=== PATIENT | female | born 1960 | race Caucasian/White ===

== ENCOUNTER 2017-03-13 14:39 | Emergency (ER) | payer OTHER ==
[2017-03-13 14:54] VITALS: BP 111/67
[2017-03-13] MEDS ORDERED: NS 0.9% 1000 ML* 1,000 ML IV ONE (15:22)
--- NOTE | 2017-03-13 15:31 | ED ---
Elis Brice Nilda, scribed for Dixie Fernandes MD on 03/13/17 at 1524 . Adult Trauma - HPI Summary HPI Summary: This patient is a 56 year old F [place] [facility] [place] chief complaint of dizziness falling out of bed twice last night. Pt does not know why she fell. Per triage note, family had difficulty waking patient today. Pt with early onset dementia - but reports memory worse today. The patient reports headache different from her migraines, dizziness, confusion, black floaters intermittently in in vision field, and vomiting (2x after waking up). She states she was ambulatory after her fall bt felt weak and unsteady. Patient denies blood HEENT. Pt denies CP, SOB, arm and leg trauma, neck pain, and bleeding from orifices (eyes, nose, ears, and mouth). Symptoms alleviated by nothing. Pt with little po today. Pt is not anticoagulated PMHx includes early Alzheimer's. No PMHx of IN, CVA, cancer, and kidney and liver issues. Medications reviewed this visit. - History of Current Complaint Chief Complaint: UCDizziness Stated Complaint: MEMORY LOSS/ HIT HEAD/VOMITING Time Seen by Provider: 03/13/17 15:11 Hx Obtained From: Patient, Medical Records Hx From Patient Unobtainable Due To: Dementia - early onset, mild Hx Last Menstrual Period: 2007 Patient had a water basting procedure Mechanism of Injury: Blunt Trauma, Fall Ambulatory at the Scene: Yes Loss of Consciousness: no loss of consciousness Current Severity: Moderate Location: Head Aggravating Factor(s): Nothing Alleviating Factor(s): Nothing - Allergy/Home Medications Allergies/Adverse Reactions: Allergies Allergy/AdvReac Type Severity Reaction Status Date / Time No Known Allergies Allergy Verified 03/13/17 14:53 PMH/Surg Hx/FS Hx/Imm Hx Previously Healthy: No Endocrine/Hematology History: Denies: Hx Diabetes, Hx Thyroid Disease Cardiovascular History: Reports: Hx Hypertension Denies: Hx Pacemaker/ICD Respiratory History: Reports: Hx Chronic Obstructive Pulmonary Disease (COPD), Hx Sleep Apnea, Other Respiratory Problems/Disorders - COPD Denies: Hx Asthma GI History: Denies: Hx Ulcer History: Denies: Hx Renal Disease Sensory History: Reports: Hx Contacts or Glasses - GLASSES Denies: Hx Hearing Aid Opthamlomology History: Reports: Hx Contacts or Glasses - GLASSES Neurological History: Reports: Hx Migraine - ON MEDS FOR Psychiatric History: Reports: Hx Anxiety - ON MEDS Denies: Hx Panic Disorder - Surgical History Surgery Procedure, Year, and Place: - 1981 AND 1983- [facility]. hernia repair 2015 Hx Anesthesia Reactions: No Infectious Disease History: No Infectious Disease History: Denies: Hx Clostridium Difficile, Hx Hepatitis, Hx Human Immunodeficiency Virus (HIV), Hx of Known/Suspected MRSA, Hx Shingles, Hx Tuberculosis, Hx Known/ Suspected VRE, Hx Known/Suspected VRSA, History Other Infectious Disease, Traveled Outside the [place] in Last 30 Days - Social History Occupation: Disabled Lives: With Family Alcohol Use: None Substance Use Type: Reports: None Smoking Status (MU): Former Smoker Type: Cigarettes Amount Used/How Often: 1 PACK A DAY Length of Time of Smoking/Using Tobacco: 30YEARS Review of Systems Constitutional: Negative Positive: Other - intermittent floaters in vision ENT: Negative Cardiovascular: Negative Respiratory: Negative Positive: Vomiting Genitourinary: Negative Musculoskeletal: Negative Skin: Negative Positive: Headache, Weakness Psychological: Normal All Other Systems Reviewed And Are Negative: Yes Physical Exam Triage Information Reviewed: Yes Vital Signs On Initial Exam: Initial Vitals Temp Pulse Resp BP Pulse Ox 98.2 F 98 18 111/67 96 03/13/17 14:47 03/13/17 14:47 03/13/17 14:47 03/13/17 14:47 03/13/17 14:47 Vital Signs Reviewed: Yes Appearance: Positive: No Pain Distress, Well-Nourished. Negative: Well- Appearing Skin: Positive: Warm, Skin Color Reflects Adequate Perfusion, Dry Head/Face: Positive: Normal Head/Face Inspection Eyes: Positive: Normal, EOMI, ASHLEY, Conjunctiva Clear ENT: Positive: Normal ENT inspection, Hearing grossly normal, Pharynx normal Neck: Positive: Supple, Nontender, No Lymphadenopathy Respiratory/Lung Sounds: Positive: Clear to Auscultation, Breath Sounds Present , Decreased Breath Sounds Cardiovascular: Positive: Normal, RRR. Negative: Murmur Abdomen Description: Positive: Nontender, No Organomegaly, Soft Bowel Sounds: Positive: Present Musculoskeletal: Positive: Normal, Strength/ROM Intact Neurological: Positive: Normal, Alert, Oriented to Person Place, Time, CN Intact II-III, Other - Pt unsteady gait follows commands slow to answer orientation quesitons, but correct. Negative: Focal Deficit @, Slurred Speech Psychiatric: Positive: Other - quiet, concerns no distress AVPU Assessment: Alert - Cordell Coma Scale Best Eye Response: 4 - Spontaneous Best Motor Response: 6 - Obeys Commands Best Verbal Response: 5 - Oriented Diagnostics - Vital Signs Vital Signs Temp Pulse Resp BP Pulse Ox 03/13/17 14:47 98.2 F 98 18 111/67 96 - Laboratory Lab Statement: Any lab studies that have been ordered have been reviewed, and results considered in the medical decision making process. - EKG No standard instances Cardiac Rate: NL EKG Rhythm: Sinus Rhythm ST Segment: Normal Ectopy: None EKG Interpretation: inverted T wave 3 Adult Trauma Course/Dx - Course Assessment/Plan: Pt presents with dizziness, weakness, 2 episodes of voimiting and WEINER s/p falling out of bed last night. Pt noted to have an unsteady gait - no other focal neuologic findings. FSBG 122. EKG non concerning for stemi. d/ w pt. Will transfer by EMS to ED. Pt in agreement - Diagnoses Provider Diagnoses: Confusion, Dizziness, Headache, Fall Discharge - Discharge Plan Condition: Good Disposition: TRANS HIGHER LVL OF CARE FAC Referrals: Mickey George DO [Primary Care Provider] - The documentation as recorded by the Elis bonilla Nilda accurately reflects the service I personally performed and the decisions made by me, Dixie Fernandes MD.
== END 2017-03-13 15:50 | disposition short-term general hospital (02) ==
LOC: UCEAST 14:39
DX: R41.0 Disorientation, unspecified (principal); R42 Dizziness and giddiness; R51 Headache; I10 Essential (primary) hypertension; J44.9 Chronic obstructive pulmonary disease, unspecified; F41.9 Anxiety disorder, unspecified; Z87.891 Personal history of nicotine dependence
CPT/HCPCS: 93005; 96360; 99213; G0463

== ENCOUNTER 2017-03-13 16:09 | Observation (INO) | payer OTHER ==
[2017-03-13] MEDS ORDERED: Aspirin Low Dose CHEW TAB* 81 MG PO ONE (16:59)
--- NOTE | 2017-03-13 17:45 | RAD ---
Indication: Vomiting. Head injury. Comparison: July 07, 2015 MRI. Technique: Noncontrast CT vertex of skull through foramen magnum. Report: The sulci, ventricles, and basal cisterns are normal for age. Farris matter white matter differentiation is preserved without evidence for edema. No intra or extra axial hemorrhage, mass, or fluid collection detected. Unremarkable visualized orbital contents. Unremarkable calvarium and skull base. Unremarkable scalp. The visualized paranasal sinuses and mastoid air spaces are clear. IMPRESSION: No CT evidence for traumatic brain injury or acute intracranial process. Negative exam.
[2017-03-13 17:47] LABS: Hematocrit 38 % (35-47); Hemoglobin 12.6 g/dl (12.0-16.0); Mean Corpuscular HGB Conc 33 g/dl (31-36); Mean Corpuscular Hemoglobin 34 pg (27-31); Mean Corpuscular Volume 101 fL (80-97); Mean Platelet Volume 10 um3 (7.4-10.4); Red Blood Count 3.77 10^6/ul (4.0-5.4); Red Cell Distribution Width 14 % (10.5-15); White Blood Count 10.2 10^3/ul (3.5-10.8)
[2017-03-13 18:04] LABS: Albumin 3.8 g/dL (3.2-5.2); BUN/Creatinine Ratio 27.8 (8-20); Calcium 8.8 mg/dL (8.6-10.3); EGFR African American 83.9 (>60); EGFR Non-African American 65.2 (>60); Globulin 2.4 g/dL (2-4); Potassium 4.6 mmol/L (3.5-5.0); Total Bilirubin 0.3 mg/dL (0.2-1.0); Total Protein 6.2 g/dL (6.4-8.9)
[2017-03-13 18:42] LABS: Troponin I 0.21 ng/mL (<0.04)
[2017-03-13] MEDS ORDERED: NS 0.9% 1000 ML* 1,000 ML IV ONE ×2 (18:56→19:25)
--- NOTE | 2017-03-13 19:56 | RAD ---
Indication: Generalized illness. Vomiting. Shaky. History of asthma and tobacco use. Comparison: February 19, 2011 Technique: Upright AP 1939 hours Report: Elevated lung volumes. No focal pulmonary lesion, compelling alveolar consolidation, pleural effusion, pneumothorax. The heart, pulmonary vasculature, and mediastinal contours are unremarkable. IMPRESSION: 1. No compelling evidence for pneumonia. 2. Stigmata of probable chronic obstructive pulmonary disease.
[2017-03-13 20:22] LABS: Urine Bacteria Absent (Absent); Urine Bilirubin Negative (Negative); Urine Glucose Negative (Negative); Urine Nitrite Negative (Negative)
[2017-03-13] MEDS ORDERED: Albuterol 2.5 MG/3 ML NEB.SOL* (0.083%) INH PRN (22:09)
[2017-03-13] MEDS ORDERED: Famotidine TAB* 20 MG PO PRN (22:09)
[2017-03-13] MEDS ORDERED: Cyclobenzaprine TAB* 10 MG PO PRN (22:09)
[2017-03-13] MEDS ORDERED: Iohexol 350* (CONTRAST) 500 ML MDV IV ONE (22:31)
[2017-03-13] MEDS ORDERED: Magnesium Oxide TAB* 400 MG PO SCH (23:00)
--- NOTE | 2017-03-14 03:58 | HP ---
CC: Dr. George. * HISTORY AND PHYSICAL: DATE OF ADMISSION: 03/13/17 PRIMARY CARE PROVIDER: Dr. George. CHIEF COMPLAINT: Unsteadiness with walking. HISTORY OF PRESENT ILLNESS: Ms. Lofton is a 56-year-old female with a history of former tobacco abuse, peripheral neuropathy, COPD, anxiety, and mild cognitive impairment, who presents to the emergency room with complaints of feeling wobbly with walking on the morning of admission. The patient states that she fell out of bed twice last evening. She states she does not know what happened, all she knows is that she found herself on the floor twice overnight. She states that she got back up on the bed last time and then ultimately when she woke up in the morning and got up to walk she felt very wobbly. The patient states in addition she had black spots in her vision. She felt as if she has also had twitching of her extremities. The patient also vomited twice on the morning of admission. The patient states that because of the wobbliness with her ambulation she presented to the emergency room for evaluation. She states that she did get up to try to walk to the bathroom in the emergency room and initially felt quite wobbly; however, it improved as she got going, though her children state that she was still very unsteady. The patient admits to her right side feeling "funky." When asked what she meant by that she states that her upper extremity and lower extremity feels heavy and weaker than the left. The patient also admits to twitching or jerking of her limbs, which is a new issue. The patient's son states that a couple of days ago she was noted to be pale. She denies any recent fevers or chills. She denies any chest pain or shortness of breath. Upon further questioning the patient she does state, approximately 2 days ago she had severe right arm pain. She did not seek any attention of this and it just went away on its own. PAST MEDICAL HISTORY: 1. Vitamin D deficiency. 2. History of tobacco abuse. 3. Peripheral neuropathy. 4. History of migraines. 5. COPD. 6. GERD. 7. Anxiety. 8. Mild cognitive impairment. PAST SURGICAL HISTORY: 1. Ventral hernia repair. 2. . MEDICATIONS: 1. Sertraline 100 mg p.o. q.d. 2. Naproxen 500 mg p.o. b.i.d. p.r.n. pain. 3. Donepezil 10 mg p.o. daily. 4. Magnesium oxide 400 mg p.o. q.h.s. 5. Advair 115/21 one puff inhaled twice daily. 6. Vitamin D3 at 5000 units p.o. daily. 7. Vitamin B complex-C 1 tablet p.o. b.i.d. 8. EpiPen 0.3 mg IM daily p.r.n. allergic reaction. 9. Albuterol 2 puffs inhaled q. 4 hours p.r.n. shortness of breath. 10. Zantac 150 mg p.o. b.i.d. p.r.n. GERD. 11. Lidocaine gel 5% topically at bedtime as needed for pain. 12. Diclofenac gel 1 application topically daily. 13. Incruse Ellipta 1 puff inhaled daily. 14. Butalbital/acetaminophen/caffeine one capsule p.o. q. 6 hours p.r.n. headache. 15. BuSpar 10 mg p.o. b.i.d. 16. Flexeril 5 mg p.o. q.h.s. p.r.n. neck pain. 17. Propranolol 80 mg p.o. daily. 18. Gabapentin 400 mg p.o. t.i.d. 19. Albuterol 2.5 mg/3 mL, one neb inhaled q. 6 hours p.r.n. shortness of breath. ALLERGIES: No known drug allergies. FAMILY HISTORY: Mom at the age of 63 of an [place]. Dad at the age of 48 of melanoma. SOCIAL HISTORY: The patient quit smoking approximately 1 year ago. She has approximately [id number] history of smoking. She denies any alcohol use. She worked previously as a [employer]. She is not . She has 2 children. Her son Jovon is her healthcare proxy. REVIEW OF SYSTEMS: The patient denies any fevers, chills, or anorexia. No chest pain. No edema. No cough. No shortness of breath. She does admit to vomiting twice on the morning of admission. No abdominal pain, constipation, diarrhea, or hematochezia. No hematuria, no dysuria. She admits for right- sided weakness and a heavy sensation. No sudden changes in vision outside of having black spots in her visual metzger earlier this morning, which has now resolved. No dysphagia. No joint pains or muscle pains out of ordinary. No rashes. No anxiety or depression. PHYSICAL EXAMINATION GENERAL: The patient is a well-developed, middle-aged female, sitting in the stretcher, in no acute distress. VITAL SIGNS: Blood pressure 108/59, pulse 83, respirations 19, temperature 98.1 , O2 saturation 90% on room air. HEENT: Pupils are equal. They are round. Extraocular muscles intact. Oropharynx is clear. Oral mucosa is dry. The patient wears upper and lower dentures. There is no submandibular, cervical, or supraclavicular adenopathy. Thyroid is not enlarged. No thyroid nodules noted. PULMONARY: Lungs are clear to auscultation bilaterally. CARDIAC: Normal S1, S2. Regular rate and rhythm. I do not appreciate any murmurs. There is no lower extremity edema. ABDOMEN: Bowel sounds present. Abdomen is soft, nontender, nondistended. MUSCULOSKELETAL: There is no cyanosis or clubbing in the digits. There is full active range of motion of all 4 extremities. NEURO: Cranial nerves II through XII appeared to be grossly intact. Sensation is intact to light touch throughout. Upper extremity strength is symmetric outside of the tail board worker, which may be slightly reduced on the right. Right lower extremity strength at the hip flexors is diminished compared to the left, but she is able to lift her right leg off the bed for 4 to 5 seconds though it does drift down. She is able to lift the left leg much higher, much more easily. The patient has past- pointing on [id number] testing. Wmrr-zp-yeal testing reveals an unsteadiness with the right lower extremity. SKIN: Warm and dry. There are no rashes. The patient does have a small lipoma of the left forearm. PSYCH: The patient is alert. She is oriented x3. Affect appears appropriate. DIAGNOSTIC STUDIES/LAB DATA: WBC 10.2, hemoglobin 12.6, hematocrit 38, platelets 223. Sodium 136, potassium 4.6, chloride 105, CO2 26, BUN 25, creatinine 0.9, glucose 99, lactic acid 0.8. Calcium 8.8, bilirubin 0.3, AST 15 , ALT 12, alkaline phosphatase 62. Troponin 0.21, follow up 0.19. Albumin 3.8. Urinalysis reveals cloudy urine with specific gravity of 1.014, with 2+ leukocyte esterase, 1+ WBC, negative for bacteria, and positive for hyaline casts. EKG reveals normal sinus rhythm with inverted T waves in the inferior leads. Chest x-ray reveals stigmata of probable chronic obstructive pulmonary disease. CT of the brain, CT evidence for traumatic brain injury or acute intracranial process, this was felt to be a negative exam. ASSESSMENT AND PLAN: Ms. Lofton is a 56-year-old female with a history of past tobacco abuse, peripheral neuropathy, COPD, and mild cognitive impairment, who presents to the emergency room with complaints of unsteadiness with walking and is being admitted for evaluation and management of this. 1. Probable CVA. On exam, the patient does have definite deficits on exam, however they are fairly subtle. The patient will be admitted to be evaluated for possible CVA. She will be monitored on telemetry and neuro checks will be obtained every 4 hours. The patient will undergo an echocardiogram to evaluate for cardioembolic source and in addition she will undergo MRI of the brain tomorrow. PT and OT have been ordered given the complaints on the right side. A Neurology consultation has been requested through the emergency room and Dr. Toribio has been notified. Lipid profile will be obtained tomorrow morning. The patient will be started on aspirin 81 mg p.o. daily to start tomorrow as she received 325 mg in the emergency room. CTA of the head and neck will also be obtained. 2. Elevated troponin, the etiology of this is not clear. The patient denies any chest pain; however, she does admit to having severe right arm pain a couple of days ago. I do question if this may have been a cardiac event. The patient's troponin is trending down; however, we will get a follow up troponin later this evening. She will be getting an echocardiogram because of the concern for stroke, but at the same time we will evaluate for wall motion abnormalities and her ejection fraction. The patient will be monitored on telemetry. She is going to be started on aspirin as above. I am going to hold off on heparin drip at this point as it is not clear what the elevated troponin is related to. I do question if perhaps she could have had another cause to elevated troponin such as rapid atrial fibrillation, which may have also led the patient developing strokes. She will be monitored on telemetry. 3. COPD, at this point the patient is not in any exacerbation. She will be maintained on her usual home inhaler regimen. 4. Peripheral neuropathy. The patient will continue on her usual dose of gabapentin. 5. Mild cognitive impairment, continue home dose of Aricept. 6. DVT prophylaxis. According to the Adult Thrombosis Prophylaxis Risk Factor Assessment Guide, the patient has a total risk factor score of 3 making her high risk, she will be placed on heparin 5000 units subcutaneous q.8 hours. 7. Code status is full and the patient again indicates that her son Jovon is her healthcare proxy. TIME SPENT: Sixty five minutes was spent admitting this patient. [id number]/CPS #: [id number] KERI
[2017-03-14] MEDS ORDERED: Heparin VIAL(*) 5000 UNITS/ML VIAL (FIVE THOUSAND) SUBCUT SCH (06:00)
[2017-03-14 06:59] LABS: Calcium 8.5 mg/dL (8.6-10.3); EGFR African American 103.6 (>60); EGFR Non-African American 80.5 (>60); HDL Cholesterol 37.2 mg/dL; Potassium 4.4 mmol/L (3.5-5.0)
[2017-03-14 07:17] LABS: Troponin I 0.2 ng/mL (<0.04)
--- NOTE | 2017-03-14 07:49 | RAD ---
CPT II: CPT II Codes: 3100F INDICATION: Cerebrovascular accident COMPARISON: Same day CT of the brain is not reveal any acute intracranial abnormalities. TECHNIQUE: A CT angiogram of the head and neck was performed with 80 cc of Omnipaque 350. Contiguous axial sections were obtained from the thoracic inlet through the [place] of [place]. Images were reconstructed in the sagittal, coronal planes and in a 3-D volume rendered format. The distal cervical internal carotid artery diameter is used as the denominater for stenosis measurement. CTA NECK: The common and internal carotid arteries are patent without hemodynamically significant stenosis. Right: Just below the carotid bifurcation the right common carotid artery measures 7 mm in diameter. Immediately above the bifurcation the right internal carotid artery measures 5 mm and short axis diameter. This indicates approximately 29% relative stenosis. Left: Just below the carotid bifurcation the common carotid artery measures 7 mm in diameter. There is coarse atherosclerotic calcification at the carotid bulb with a short access diameter dimension of 6 mm. This corresponds to approximately 14% degree stenosis. The vertebral arteries are patent without gross abnormality. CTA of the brain: The internal carotid, anterior and middle cerebral arteries appear are patent without high grade stenosis or occlusion. The vertebral, basilar and posterior cerebral arteries appear patent without high grade stenosis or occlusion. The [place] of [place] is complete with bilateral posterior communicating arteries identified. No focal luminal filling defect, aneurysm or vascular malformation is seen. NON-ARTERIAL FINDINGS: The lungs apices exhibit centrilobular emphysematous changes. In the right lobe of the thyroid there is a 1 cm fluid density cyst. IMPRESSION: 1. Normal CT angiography of the head and neck. 2. Right thyroid cyst. If clinically warranted this can be further characterized on a nonemergent basis with ultrasound.
[2017-03-14] MEDS: Gabapentin CAP(*) 400 MG PO SCH ×2 (08:38)
[2017-03-14] MEDS ORDERED: Mometasone/Formoter 200/5 MDI INH SCH (09:00)
[2017-03-14] MEDS ORDERED: Umeclidin 62.5 MDI(NF) 1 INH MDI INH SCH (09:00)
[2017-03-14] MEDS ORDERED: busPIRone TAB* 10 MG PO SCH (09:00)
[2017-03-14] MEDS ORDERED: Sertraline* 100 MG TAB PO SCH (09:00)
[2017-03-14] MEDS ORDERED: Donepezil TAB* 5 MG PO SCH (09:00)
[2017-03-14] MEDS ORDERED: Propranolol TAB* 80 MG PO SCH (09:00)
[2017-03-14] MEDS ORDERED: Aspirin EC Low Dose* 81 MG TAB.EC PO SCH (09:00)
[2017-03-14] MEDS ORDERED: Acetaminophen TAB* 325 MG PO PRN (09:33)
[2017-03-14] MEDS ORDERED: Acetaminophen TAB* 325 MG ONE (09:38)
--- NOTE | 2017-03-14 10:22 | ECHO ---
Patient: JOSE PLUMMER [facility] Rec#: [id number] : 1960 Date: 03/14/2017 Age: 56y Height: 162.56 cm / 64.0 in Weight: 83.91 kg / 184.9 lbs Sex: F BSA: 1.89 Room#: 445 Admit Date#: 03/13/2017 Type: Inpatient Referring: Yadira Menon DO Reading: Indy Leon MD Cushion Spring Assembler: Patricia Chapman [facility] CC: Mickey George MD Transthoracic Echocardiogram Indication: TIA BP: 115/61 HR: 74 Rhythm: NSR Findings History: Former smoker,COPD,peripheral neuropathy,HTN,ANDREA with CPAP rx. Technical Comments: The study quality is good. Completed at 1000. Left Ventricle: The left ventricular chamber size is normal. Mild concentric left ventricular hypertrophy is observed. There is normal left ventricular systolic function. The estimated ejection fraction is 55-60%. Abnormal left ventricular diastolic function is observed. Left Atrium: The left atrium is mildly dilated. Right Ventricle: The right ventricular cavity size is normal. The right ventricular global systolic function is moderately reduced. Right Atrium: The right atrial cavity size is normal. The interatrial septum bowed toward the left. A patent foramen ovale is demonstrated by agitated contrast. late bubbles after valsalva. There is evidence of an atrial septal aneurysm. Aortic Valve: The aortic valve is trileaflet. There is mild thickening of the non coronary cusp. Systolic excursion of the aortic valve is normal. There is no evidence of aortic regurgitation. There is no evidence of aortic stenosis. Mitral Valve: The mitral valve leaflets are mildly thickened. There is moderate to severe mitral regurgitation. posterior lateral jet. There is no evidence of mitral stenosis. Tricuspid Valve: The tricuspid valve leaflets are normal. There is moderate tricuspid regurgitation. The tricuspid regurgitant jet is centrally directed. There is evidence of moderate pulmonary hypertension. There is no tricuspid stenosis. Pulmonic Valve: The pulmonic valve appears normal. There is no evidence of pulmonic regurgitation. There is no pulmonic stenosis. Pericardium: A pericardial fat pad is visualized. Aorta: There is no dilatation of the ascending aorta. There is no dilatation of the aortic arch. There is no dilation of the aortic root. Pulmonary Artery: The main pulmonary artery appears normal. Venous: The inferior vena cava is dilated. There is less than 50% respiratory change in the inferior vena cava dimension. Contrast: Normal saline was used as contrast for the bubble study. Intravenous contrast was used to help determine presence of intracardiac shunting. Conclusions Mild concentric left ventricular hypertrophy is observed. There is normal left ventricular systolic function. Abnormal left ventricular diastolic function is observed. The estimated ejection fraction is 55-60%. The right ventricular global systolic function is moderately reduced. The left atrium is mildly dilated. The interatrial septum bowed toward the left. A patent foramen ovale is demonstrated by agitated contrast. late bubbles after valsalva. There is mild thickening of the non coronary cusp, normal function of the aortic valve.. There is moderate to severe mitral regurgitation, posterior lateral jet. There is moderate tricuspid regurgitation. There is evidence of moderate pulmonary hypertension: 46 mmHg. No prior echo to compare. Measurements Name Value Normal Range RVIDd (AP) 2D 3.4 cm (0.9 - 2.6) RVDdMajor (2D) 3.7 cm (2.2 - 4.4) RAd ISD 4CH 4.9 cm (3.4 - 4.9) RA (A4C)W 3 cm (2.9 - 4.6) IVSd (2D) 1.2 cm (0.6 - 1) LVPWd (2D) 1.2 cm (0.6 - 1) LVIDd (2D) 3.9 cm (3.6 - 5.4) LVIDs (2D) 2.6 cm - LV FS (2D) 34 % (25 - 45) Aortic Annulus 2 cm (1.4 - 2.6) Ao root diameter (2D) 3.1 cm (2.1 - 3.5) Ascending Ao 2.6 cm (2.1 - 3.4) Aortic arch 2.7 cm (1.8 - 3.4) Descending Ao 0.6 cm - LA dimension (AP) 2D 4 cm (2.3 - 3.8) LAd ISD 4CH 4.8 cm (2.9 - 5.3) LA ISD 4CH W 4.2 cm (2.5 - 4.5) Name Value Normal Range LA ESV SP 4CH (A/L) 59 ml - LA ESV SP 2CH (A/L) 90 ml - LA ESV BP (A/L) 77 ml - LA ESV BP (A/L) index 40.51 ml/m2 - LA ESV SP 4CH (MOD) 56 ml - LA ESV SP 2CH (MOD) 86 ml - Name Value Normal Range MV E-wave Vmax 0.7 m/sec - MV deceleration time 206 msec - MV A-wave Vmax 0.8 m/sec - MV E:A ratio 0.79 ratio - LV septal e' Vmax 0.07 m/sec - LV lateral e' Vmax 0.1 m/sec - LV E:e' septal ratio 10 ratio - LV E:e' lateral ratio 6.36 ratio - Name Value Normal Range AV Vmax 1.5 m/sec - AV VTI 31.3 cm - AV peak gradient 8.8 mmHg - AV mean gradient 4.32 mmHg - LVOT Vmax 1 m/sec - LVOT VTI 22 cm - LVOT peak gradient 3.64 mmHg - LVOT mean gradient 1.5 mmHg - Name Value Normal Range MR Vmax 4.2 m/sec - MR VTI 142.3 cm - Name Value Normal Range TR Vmax 2.8 m/sec - TR peak gradient 31 mmHg - RAP 15 mmHg - RVSP 46 mmHg - IVC diameter 2.4 cm - Name Value Normal Range PV Vmax 0.6 m/sec - PV peak gradient 1.63 mmHg -
--- NOTE | 2017-03-14 11:01 | RAD ---
HISTORY: Stroke, right-sided weakness COMPARISONS: Head CT dated March 13, 2017, MRI dated July 07, 2015 TECHNIQUE: The following sequences were obtained of the head: Sagittal T1-weighted images, axial T2-weighted images, axial FLAIR images, axial susceptibility weighted images, axial T1-weighted images. Additionally, axial diffusion-weighted images were obtained with calculated apparent diffusion coefficients. FINDINGS: The study is limited by patient motion artifact. HEMORRHAGE/INFARCT: There is no hemorrhage or acute infarct. MASSES/SHIFT: There is no mass or shift. EXTRA-AXIAL SPACES/MENINGES: There are no extra-axial fluid collections. SULCI AND VENTRICLES: The sulci and ventricles are normal in size and position for the patient's stated age. CEREBRUM: There are multiple scattered small foci of elevated T2/FLAIR signal within the periventricular and subcortical white matter. Accounting for artifact, these are stable from the previous examination. BRAINSTEM: There are no focal parenchymal abnormalities. CEREBELLUM: There are no focal parenchymal abnormalities. The cerebellar tonsils are normal in size and position. SELLA: The sella is normal. PINEAL: The pineal region is clear. CP ANGLE/TEMPORAL BONES: The labyrinthine structures are grossly normal. VESSELS: Normal flow-voids are noted within the visualized vertebral vasculature. DIFFUSION ABNORMALITIES: There are no diffusion abnormalities. PARANASAL SINUSES/MASTOIDS: The paranasal sinuses are clear. ORBITS: The orbits are unremarkable. BONES AND SOFT TISSUE: No bone or soft tissue abnormalities are noted. OTHER: None IMPRESSION: 1. LIMITED STUDY. 2. STABLE NONSPECIFIC WHITE MATTER CHANGES. 3. NO RESTRICTED DIFFUSION TO SUGGEST ACUTE INFARCT.
[2017-03-14 11:30] VITALS: BP 125/66
--- NOTE | 2017-03-14 11:52 | DCNOTE ---
Subjective Date of Service: 03/14/17 Interval History: No more neuro c/o, feels back to normal. Objective Active Medications: Acetaminophen (Tylenol Tab*) 650 mg PO Q4H PRN PRN Reason: PAIN Last Admin: 03/14/17 09:39 Dose: 650 mg Albuterol (Ventolin 2.5 Mg/3 Ml Neb.Tianna*) 2.5 mg INH Q6H PRN PRN Reason: SOB/WHEEZING Aspirin (Aspirin Ec Low Dose*) 81 mg PO DAILY [facility] Last Admin: 03/14/17 08:38 Dose: 81 mg Buspirone HCl (Buspar Tab*) 10 mg PO BID [facility] Last Admin: 03/14/17 08:38 Dose: 10 mg Cyclobenzaprine HCl (Flexeril Tab*) 5 mg PO BEDTIME PRN PRN Reason: neck pain Donepezil HCl (Aricept Tab*) 10 mg PO DAILY [facility] Last Admin: 03/14/17 08:38 Dose: 10 mg Famotidine (Pepcid Tab*) 20 mg PO BID PRN; Protocol PRN Reason: gerd Gabapentin (Neurontin Cap(*)) 400 mg PO TID [facility] Last Admin: 03/14/17 08:38 Dose: 400 mg Heparin Sodium (Porcine) (Heparin Vial(*)) 5,000 units SUBCUT Q8HR [facility] Last Admin: 03/14/17 06:00 Dose: 5,000 units Magnesium Oxide (Magox 400 Tab*) 400 mg PO QPM [facility] Last Admin: 03/13/17 23:59 Dose: 400 mg Mometasone Furoate/Formoterol Fumar (Dulera 200/5 Mdi*) 1 puff INH BID [facility] PRN Reason: Protocol Last Admin: 03/14/17 07:37 Dose: 1 puff Propranolol HCl (Inderal Tab*) 80 mg PO DAILY [facility] Last Admin: 03/14/17 08:38 Dose: 80 mg Sertraline HCl (Zoloft*) 100 mg PO DAILY [facility] Last Admin: 03/14/17 08:39 Dose: 100 mg Umeclidinium [place] (Incruse Ellipta Mdi (Nf)) 1 inh INH DAILY [facility] Last Admin: 03/14/17 07:39 Dose: Not Given Vital Signs 03/13/17 03/13/17 03/14/17 22:00 22:12 00:00 Temperature 98.4 F Pulse Rate 82 Respiratory 18 18 Rate Blood Pressure 108/59 105/63 (mmHg) O2 Sat by Pulse 93 Oximetry 03/14/17 03/14/17 03/14/17 03:50 07:38 08:38 Temperature 97.3 F Pulse Rate 81 68 Respiratory 20 18 Rate Blood Pressure 115/61 138/78 (mmHg) O2 Sat by Pulse 90 95 Oximetry 03/14/17 03/14/17 03/14/17 10:05 10:48 11:24 Temperature 97.3 F 97.5 F Pulse Rate 58 Respiratory 18 18 16 Rate Blood Pressure 125/66 (mmHg) O2 Sat by Pulse 97 Oximetry Oxygen Devices in Use Now: None Appearance: Alert, partly up in bed. In good spirits. Looks comfortable. Eyes: No Scleral Icterus Neck: NL Appearance and Movements; NL JVP, No Thyroid Enlargement, Masses Respiratory: Symmetrical Chest Expansion and Respiratory Effort, Clear to Auscultation, Clear to Percussion Cardiovascular: NL Sounds; No Murmurs; No JVD, RRR, No Edema, - Extremities: No Edema, No Clubbing, Cyanosis, - Skin: No Rash or Ulcers, No Nodules or Sclerosis, - Neurological: Alert and Oriented x 3, NL Sensation - Hand airplane tester and foor dorsiflexion strong and symmetric. Result Diagrams: 03/13/17 17:40 03/14/17 06:33 Assess/Plan/Problems-Billing Assessment: - Patient Problems (1) TIA (transient ischemic attack) Current Visit: Yes Status: Acute Comment: Resolved. MRI, CT, CTA all show no infarct or other significant lesion. Echo shows mod-severe FL with LA enlargement and PHTN, RV dysfunction. Atrial fib or other arrhytmia would be one possible explanation of elevated troponin and TIA. I spoke to both Dr. George and Dr. Mylene Cardenas. She will fup with both, consider event monitor and stress testing. (2) COPD (chronic obstructive pulmonary disease) Current Visit: Yes Status: Acute Code(s): J44.9 - CHRONIC OBSTRUCTIVE PULMONARY DISEASE, UNSPECIFIED SNOMED Code(s): 33696187 Comment: Quit smoking 1 yr ago. Continue home pulmonary meds. (3) HTN (hypertension) Current Visit: Yes Status: Acute Code(s): I10 - ESSENTIAL (PRIMARY) HYPERTENSION SNOMED Code(s): 47443487 Comment: Continue propranolol. (4) GERD (gastroesophageal reflux disease) Current Visit: Yes Status: Acute Code(s): K21.9 - GASTRO-ESOPHAGEAL REFLUX DISEASE WITHOUT ESOPHAGITIS SNOMED Code(s): 936682531 Comment: Continue ranitidine. Status and Disposition: Discharge now, fup Ronald Paul.
--- NOTE | 2017-03-15 04:37 | DS ---
CC: Dr. George; Dr. Cardenas * DISCHARGE SUMMARY: DATE OF ADMISSION: DATE OF DISCHARGE: 03/14/17 HISTORY: This 56-year-old woman woke up on the day of admission feeling wobbly. During the night, she has had found herself on the floor twice. On the day of admission, she had black spots in her vision. She had twitching of her extremities. She vomited twice that morning. She thought might be her right side was a little weaker than the left. The patient has never had similar symptoms before. I note she typically walks about a mile a day without any problems, although she does have COPD. She has never had chest pain. She was monitored on telemetry unit overnight. CT scan of the brain, MRI of the brain, and CTA of the head and neck were unremarkable. Echocardiogram showed bommxdoy-[id number]-snooay mitral regurgitation with some left atrial enlargement , pulmonary hypertension, right ventricular dysfunction, and bowing of the interatrial septum to the left. There were no significant arrhythmias on the monitor. She remained in sinus rhythm. Her troponin fluctuated between 0.20 and 0.16 on 4 different measurements. Clinically, the patient appears to have TIA from which she recovered completely. The elevated troponin could be related to an arrhythmia such as atrial fibrillation, although there is no direct evidence of this. I have arranged for her to be seeing Dr. Alex Cardenas in consultation with consideration for event monitor and stress testing. She will also follow up with Dr. George. She will be on aspirin 81 mg daily from the time of admission. DISCHARGE DIAGNOSES: 1. Transient ischemic attack. 2. Elevated troponin level. 3. Qisuozgn-[id number] tricuspid insufficiency. 4. Hypertension. 5. Chronic obstructive pulmonary disease. 6. Gastroesophageal reflux disease. DISCHARGE MEDICATIONS: 1. Aspirin 81 mg daily. 2. Vitamin D3 5000 units daily. 3. Magnesium oxide 400 mg h.s. 4. Fluticasone/salmeterol 115/21 one puff b.i.d. 5. Albuterol inhaler 2 puffs every 4 hours p.r.n. 6. Vitamin B complex-C 1 tab b.i.d. 7. Buspirone 10 mg b.i.d. 8. Lidocaine topical p.r.n. 9. Donepezil 10 mg daily. 10. EpiPen p.r.n. 11. Ranitidine 150 mg b.i.d. p.r.n. 12. Diclofenac 1% gel apply daily. 13. Umeclidinium 1 puff daily. 14. Butalbital, acetaminophen, caffeine 1 every 6 hours p.r.n. 15. Naproxen 500 mg b.i.d. p.r.n. 16. Cyclobenzaprine 5 mg h.s. p.r.n. 17. Sertraline 100 mg daily. 18. Propranolol 80 mg daily. 19. Gabapentin 400 mg t.i.d. 20. Albuterol by nebulizer 2.5 mg every 6 hours p.r.n. [id number]/[facility] #: [id number] [facility]
== END 2017-03-14 12:45 | disposition home or self-care (01) ==
LOC: ED 16:09 → MEDTELE 21:56
PROVIDERS: ADMIT Hospitalist; ATTEND Internal Medicine
DX: G45.9 Transient cerebral ischemic attack, unspecified (principal); R74.8 Abnormal levels of other serum enzymes; I07.1 Rheumatic tricuspid insufficiency; I10 Essential (primary) hypertension; J44.9 Chronic obstructive pulmonary disease, unspecified; K21.9 Gastro-esophageal reflux disease without esophagitis; F41.9 Anxiety disorder, unspecified; E55.9 Vitamin D deficiency, unspecified; G62.9 Polyneuropathy, unspecified; G31.84 Mild cognitive impairment of uncertain or unknown etiology; Z79.82 Long term (current) use of aspirin; Z79.899 Other long term (current) drug therapy; Z87.891 Personal history of nicotine dependence; I51.7 Cardiomegaly
CPT/HCPCS: 36415; 70450; 70496; 70498; 70551; 71010; 80048; 80053; 80061; 81003; 81015; 83605; 84484; 85025; 87086; 93005; 93306; 94640; 96360; 96361; 96372; 99284; A9270-GY; G0378; G8978-GP-CI; G8979-GP-CI; G8980-GP-CI; J1644; Q9967

== ENCOUNTER 2017-09-25 16:48 | Inpatient (IN) | payer OTHER ==
--- OUTSIDE RECORDS SUMMARY | 2017-09-25 16:59 | XMS REPORT ---
:1960 External Reference #:[id number] Author Organization [facility] Address [address] [place] [address] Phone [phone] Care Team Providers Name Role Phone Mickey George D.O. Primary Care Physician Unavailable Payers Type Date Identification Numbers Payment Provider Subscriber Commercial Policy Number: [id number] [employer] Fatemeh [place] PayID: [id number] [address] [place] [id number] Problems Date Description Provider Status Onset: Asthma Active Onset: Arthritis Active Onset: Essential hypertension Active Onset: Gastroesophageal reflux disease Active Onset: 09/12/2017 Regulo Mcmanus M.D. 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 Family History Date Family Member(s) Problem(s) Comments Father No Current Problems Mother No Current Problems Social History Type Date Description Comments Marital Status Single Work Status Unemployed ETOH Use Denies alcohol use Smoking Patient has never smoked Recreational Drug Use Denies Drug Use Daily Caffeine Consumes on average 1 cup of regular coffee per day Allergies, Adverse Reactions, Alerts Date Description Reaction Status Severity Comments 09/06/2016 NKDA active Medications Medication Date Status Form Strength Qnty SIG Indications Ordering Provider Erythromycin 09/12/ Active Ointment 5mg/GM 1Tube Apply to H00.15 rosibel Joseph three M.D. times a day Naproxen / Active Tablets 500mg [place], 0000 Mickey D.O. Escitalopram / Active Tablets 20mg Take Two Unknown Oxalate 0000 Tablets By Mouth Every Day Per Neurologist Donepezil HCL / Active Tablets 5mg Take Two Unknown 0000 Tablets By Mouth Every Day as Directed Hydrocodone-Ac / Active Tablets 5-325mg Unknown etaminophen 0000 Ranitidine HCL / Active Tablets 150mg Take One Unknown 0000 Tablet By Mouth Twice A Day as Needed Incruse / Active Aerosol 62.5mcg/In Inhale One Unknown Ellipta 0000 h puff By Mouth Every Day Propranolol / Active Caps ER 60mg Unknown HCL ER 0000 24HR Buspirone HCL / Active Tablets 10mg Take One Unknown 0000 Tablet By Mouth Twice A Day Gabapentin / Active Capsules 400mg [place], 0000 Mickey D.O. Vitamin B / Active Capsules Unknown Complex-C 0000 Epinephrine / Active Solution 0.3mg/0.3M Unknown 0000 Auto-Injec L t Vitamin D3 / Active Tablets Unknown Complete 0000 Magox 400 / Active Tablets 400(241.3m Unknown 0000 g) mg Advair HFA / Active Aerosol 115-21mcg/ Unknown 0000 Act Voltaren / Active Gel 1% Unknown 0000 Lidocaine / Active Ointment 5% Unknown 0000 Sertraline HCL / Active Tablets 25mg [place], 0000 Fiordaliza Smiley Erythromycin 09/06/ Hx Ointment 5mg/GM 1Tube apply to D48.7 Harry Lopez - arturo Mcmanus 09/11/ rosibel three M.D. 2018 times a day Vital Signs Date Vital Result Comment 09/20/2016 BP Systolic 124 mmHg BP Diastolic 68 mmHg Heart Rate 66 /min Respiratory Rate 16 /min Results Description No Information Procedures Date CPT Code Description Status 09/20/2016 71597 Biopsy Eyelid Completed 09/06/2016 80171 New Patient Intermediate Exam Completed Plan of Care 09/12/2017 - Harry Mcmanus M.D.H00.15 Chalazion left lower eyelidNew Medication:Erythromycin 5 mg/GMComments:Smoking can increase the risk of developing or worsening any eye related disease, as well as affect your overall health. If you are a smoker, we strongly recommend that you quit.If you are not a smoker, we strongly recommend that you do not start. Our office has sent in a prescription for Erythromycin ointment to your pharmacy. Please pick this medication up before your scheduled excision and bringit with you. We recommend that you bring someone to drive you home.Follow up:Schedule Excision
--- OUTSIDE RECORDS SUMMARY | 2017-09-25 17:00 | XMS REPORT ---
:1960 External Reference #:[id number] Author Organization [facility] Address [address] [place] [address] Phone [phone] Care Team Providers Name Role Phone HCP/LW on file Primary Care Physician Unavailable Payers Type Date Identification Numbers Payment Provider Subscriber Commercial Policy Number: [id number] [facility] Fatemeh Lofton PayID: [id number] [place] [id number] Medigap Part B Effective: 2013 Policy Number: Medicaid Fatemeh Lofton [id number] Expires: 2014 PayID: [id number] [place] [address] Problems Date Description Provider Status Onset: 05/20/2014 Gastroesophageal reflux disease Yue Stock D.O. Active Onset: 05/20/2014 Chronic obstructive lung disease Yue Stock D.O. Active Onset: 05/20/2014 Migraine with typical aura Yue Stock D.O. Active Onset: 05/20/2014 Low back pain Yue Stock D.O. Active Onset: 05/20/2014 Idiopathic peripheral neuropathy Yue Stock D.O. Active Onset: 05/27/2014 Tobacco user Yue Stock D.O. Active Onset: 05/27/2014 Vitamin D deficiency Yue Stock D.O. Active Onset: 06/09/2014 Sleep disorder Yue Stock D.O. Active Onset: 07/07/2014 Anxiety state Yue Stock D.O. Active Onset: 09/07/2014 Plantar fascial fibromatosis Yue Stock D.O. Active Onset: 09/07/2014 Obstructive sleep apnea syndrome Yue Stock D.O. Active Onset: 11/10/2014 Arthralgia of the ankle and/or foot Yue Stock D.O. Active Onset: 01/11/2015 Chronic obstructive lung disease Yue Stock D.O. Active Onset: 02/11/2015 Carpal tunnel syndrome Yue Stock D.O. Active Onset: 02/11/2015 Localized, primary osteoarthritis of Yue Stock D.O. Active the hand Onset: 04/13/2015 Disorder of magnesium metabolism Yue Stock D.O. Active Onset: 04/13/2015 Pain in limb Yue Stock D.O. Active Onset: 04/13/2015 Peroneal tendinitis, right leg Yue Stock D.O. Active Onset: 05/22/2016 Essential hypertension Yue Stock D.O. Active Family History Date Family Member(s) Problem(s) Comments General Asthma pt General Cancer, Melanoma father General Heart Problems mother General Chronic Obstructive Pulmonary Disease mother (COPD) Children 2 sons Siblings 4 3 brothers and 1 sister Social History Type Date Description Comments Education Highest level completed, 12th grade Marital Status Single Work Status Not Currently Working last worked 04-08-14 Cigarette Use Former Cigarette Smoker Smoking Patient is a former smoker currently 5-6 cig/day. 08/15; started at age 23 X 1ppd for 33 years=33 pack years. Daily Caffeine Consumes Caffeine 3 cups; 2 soda Exercise Type/Frequency Does not exercise Seat Belt/Car Seat Yes Contraceptive Methods None Allergies, Adverse Reactions, Alerts Date Description Reaction Status Severity Comments 05/20/2014 NKDA active 06/14/2015 Bee Sting active Medications Medication Date Status Form Strength Qnty SIG Indications Ordering Provider Omeprazole 08/27/ Active Capsules DR 20mg 30cap 1 every day K29.50 Kaleigh 2017 s 20 minutes Adrian, before M.D. morning meal for abd discomfort Diazepam 08/01/ Active Tablets 5mg 60tab 1 tab by F41.9 Ariel 2017 s mouth twice Yue, daily as D.O. needed for anxiety/ramírez ic attacks Buspirone HCL 06/20/ Active Tablets 15mg 60tab take 1 M79.674 Ariel, 2017 s tablet by Yue, mouth two D.O. times daily for anxiety Chantix 04/03/ Active Tablets 1mg 56tab Take One Ariel Continuing 2016 s Tablet By Dominic Arevalo Mouth Twice D.O. A Day For Smoking Cessation Co Q-10 04/02/ Active Capsules 100mg 90cap 1 by mouth G43.109 Ariel 2016 s every day Yue, D.O. Fluticasone 02/22/ Active Suspension 50mcg/Act 16uni [place] Two J01.90 Silcoff, Propionate 2016 ts Sprays In Adrian, Each M.D. Nostril Every Day (Can Also Try One [place] Per Nostril Two Times A Day ) For Sinusitis Sertraline 01/26/ Active Tablets 100mg 90tab Take One M79.674 Ariel HCL 2016 s Tablet By Yue, Mouth Every D.O. Day Gabapentin 07/04/ Active Capsules 400mg 90cap Take One G60.8 Ariel 2016 s Capsule By Yue, Mouth Three D.O. Times A Day Naproxen 03/27/ Active Tablets 500mg 180ta take 1-2 M79.674 Ariel, 2015 bs tablets by Yue, mouth twice D.O. a day G43.109 Donepezil HCL 12/10/2015 Active Tablets 10mg 1 po daily R41.3 Unknown Butalbital/Hemant 10/13/2015 Active Capsules 50-325- 30c take one G44.201 Ariel taminophen/Caf 40-30mg aps capsule by faith Arevalo/Codeine mouth every 4 D.O. hours as needed for headache maximum daily dose=4 tablets Incruse 09/01/2015 Active Aerosol 62.5mcg 90u inhale one puff J20.9 Ariel Ellipta /Inh nit by mouth every Yue, s day D.O. Ranitidine HCL 08/13/2015 Active Tablets 150mg 60t Take One Tablet K21.9 Soplupis, abs By Mouth Twice Yue, A Day as Needed D.O. Lidocaine 03/15/2015 Active Ointment 5% 150 apply a small M76.71 Sopchak, gm amout of Yue, ointment to the D.O. affected area three times a day for pain Voltaren 03/15/2015 Active Gel 1% 500 2 gm apply to M76.71 Sopchak, uni affected area Yue ts every day # D.O. 100gm Epinephrine 09/07/2014 Active Solution 0.3mg/0 1un use as directed Ariel Auto-Inject .3ML its for bee stings Yue D.O. Vitamin B 08/07/2014 Active Capsules 180 1 by mouth G44.209 Sopchak, Complex-C cap twice a day Yue, s D.O. Ventolin HFA 06/09/2014 Active Aerosol 108(90B 54g inhale 2 puffs J20.9 Sopchak, ase) m by mouth every Yue, mcg/Act 4 hours as D.O. needed for bronchospasm Advair HFA 06/09/2014 Active Aerosol 115-21m 12u Inhale One To J20.9 Sopchak, cg/Act nit Two Puffs By Yue, s Mouth Twice A D.O. Day (Rinse Mouth After Use) Magox 400 05/27/2014 Active Tablets 400(241 450 3 tablets every M79.674 Sopchak, .3mg) tab night at Yue, mg s bedtime as D.O. directed J20.9 E83.42 Vitamin D3 05/27/2014 Active Capsules 5000Unit 90caps take one E55.9 Sopchak, capsule by Yue, mouth D.O. every day or 7 tablets once a week Albuterol 05/27/2014 Active Nebulizer 1.25mg/3ML 75units use 3ml or J20.9 Silcoff, Sulfate 1 vial up Adrian, to four M.D. times a day as directed J44.1 Atorvastatin Calcium Active Tablets 40mg Alex Cardenas DO Diazepam 07/04/2017 - Hx Tablets 2mg 60ta take 1-2 F Sopchak, 08/01/2017 bs tablets by 4 Yue, mouth every 12 1 D.O. hours as needed . for anxiety 9 Diazepam 06/20/2017 - Hx Tablets 10mg 60ta take 1/2 tablet F Sopchak, 07/04/2017 bs by mouth twice 4 Yue, daily as needed 1 D.O. . 9 Oxazepam 04/02/2017 - Hx Capsules 10mg 90ca take 1 capsule Ariel, 06/20/2017 ps by mouth 3 4 Yue, times per day 1 D.O. as needed for . anxiety 9 Amoxicillin/Clavulan 04/02/2017 - Hx Tablets 875-12 20ta 1 by mouth Kenisha Stock ate Potassium 04/12/2017 5mg bs twice a day 0 Yue, 2 D.O. . 9 Chantix 04/02/2017 - Hx Tablets 0.5mg QS days 1-3: 1 qd; Lisandra Ariel, 05/02/2017 day 4-7: twice 1 Yue, a day #1 7 D.O. starter pack . refill # 1 2 continuing pack 0 1 Benzonatate 02/22/2017 - Hx Capsules 100mg 30ca 1-2 capsules Kenisha Farris 04/02/2017 ps three times a 0 Adrian, day as needed, 1 M.D. for . nonproductive 9 cough 0 Prednisone 02/22/2017 - Hx Tablets 10mg 15ta 2 tabs for 5 Kaleigh 03/04/2017 bs days then 1 tab 4 Adrian, for 5 days with 4 M.D. exacerbation of . bronchitis 1 Tobradex 07/05/2016 - Hx Suspension 0.3-0. 5ml 1 left eye H Ariel 07/12/2016 1% three times a 0 Yue, day for 5 days 0 D.O. or 1 day after . symptoms 0 resolve. 1 5 Prednisolone-Moxiflo 07/04/2016 - Hx Solution 1-0.5% 3ml 1 drop every 6 H Ariel xacin 07/05/2016 hours left eye 0 Yue, for 3 days 0 D.O. . 0 1 5 Doxycycline Hyclate 07/04/2016 - Hx Capsules 100mg 20ca 1 twice a day Kenisha Stock 07/14/2016 ps for 10 days 2 Yue, 0 D.O. . 9 Methylprednisolone 07/04/2016 - Hx Tablets 4mg 21ta 6 tabs on day Kenisha Stock 07/10/2016 bs 1; then 5 tabs 2 Yue, day2; then 4 0 D.O. tabs ay3; then . 3 tabs day4; 9 then 2 tabs day 5; then 1 tab day 6 Sertraline HCL 05/22/2016 - Hx Tablets 50mg 30ta 1 by mouth M Ariel, 01/26/2017 bs every day 7 Yue, 9 D.O. . 6 7 4 Propranolol HCL ER 05/22/2016 - Hx Caps ER 24HR 80mg 30ca Take One G [facility], 06/20/2017 ps Capsule By 4 Yue, Mouth Every Day 3 D.O. For High Blood . Pressure 1 0 9 G44.201 I10 Methylprednisolone 04/06/2016 - Hx Tablets 4mg 21tabs 6 tabs on J20.9 Sopchak, 04/12/2016 day 1; Yue, then 5 D.O. tabs day2; then 4 tabs ay3; then 3 tabs day4; then 2 tabs day 5; then 1 tab day 6 Azithromycin 04/06/2016 - Hx Tablets 250mg 6tabs take 2 J20.9 Sopchak, 04/11/2016 tablets by Yue, mouth one D.O. time on the first day then take 1 tablet by mouth daily for 4 days Buspirone HCL 01/28/2016 - Hx Tablets 10mg 180tabs take one M79.[address] [facility], 06/20/2017 tablet by Yue, mouth D.O. twice a day Naprosyn 01/11/2016 - Hx Tablets 500mg 60tabs 1-2 caps M79.674 [facility], 03/27/2016 by mouth Yue, twice a D.O. day as needed for pain G43.109 Indomethacin 12/14/2015 - Hx Capsules 50mg 45caps Take One M79.674 Sopchak, 01/11/2016 Capsule By Yue, Mouth Three D.O. Times A Day as Needed For Neck Pains And Foot Pains Lexapro 12/10/2015 - Hx Tablets 20mg 180tabs 2 by mouth M79.674 Sopchak , 05/22/2016 every day Yue, per D.O. neurologist Cyclobenzaprine 10/13/2015 - Hx Tablets 5mg 30tabs take one G44.201 Sopchak, HCL 06/20/2017 tablet by Yue, mouth every D.O. night for neck tension/head aches will make you drowsy Spiriva 07/28/2015 - Hx Capsules 18mcg 90caps Inhale The J20.9 Sopchak, Handihaler 09/01/2015 Contents Of Yue, One Capsule D.O. By Mouth Via Handihaler Daily Prilosec 07/28/2015 - Hx Capsules 40mg 90caps Take One K21.9 Sopchak, 08/13/2015 DR Capsule By Yue, Mouth Every D.O. Day Hydrocodone-Aceta 06/14/2015 - Hx Tablets 5-325m 30tabs 1 tabletq 4 K46.9 Sopchak, minophen 06/29/2015 g hours as Yue, needed for D.O. severe pain Spiriva Respimat 06/14/2015 - Hx Aerosol 2.5mcg 12gm two J20.9 Sopchak, 07/28/2015 /Act inhalations Yue, (5mcg) once D.O. daily (maximum: 2 inhalations per 24 hours). Propranolol HCL 06/14/2015 - Hx Caps ER 60mg 90caps take 1 M79.674 Sopchak, ER 05/22/2016 24HR capsule by Yue, mouth once D.O. daily for headaches Buspirone HCL 04/13/2015 - Hx Tablets 7.5mg 60tabs 1 cap by M79.674 Sopchak, 01/28/2016 mouth twice Yue, a day as D.O. needed Lexapro 03/15/2015 - Hx Tablets 20mg 90tabs Take One M79.674 Sopchak, 12/14/2015 Tablet By Yue, Mouth Every D.O. Day Wrist 02/11/2015 - Hx Misc 1units change size G56.02 Sopvasquezk, Splint/Cock-Up/Le 03/13/2015 as needed Yue, ft/Canvas/Large based on D.O. fit. Hydrocodone-Aceta 11/10/2014 - Hx Tablets 5-325m 30tabs 1 tabletq 4 M54.5 Sopchak, minophen 04/13/2015 g hours as Yue, needed for D.O. severe pain M72.2 M25.571 Lexapro 11/10/2014 - Hx Tablets 10mg 90tabs 1 by mouth M79.674 Sopchak, 03/15/2015 every day Edson Arevalo.O. Gabapentin 07/07/2014 - Hx Capsules 300mg 90caps Take One G60.8 Sopchak , 07/04/2016 Capsule By Yue, D.O. Mouth Every Day In The Evening In Addition To 100MG Capsules During The Day Hydrocodone-Ac 06/29/2014 - Hx Tablets 5-325mg 15tabs 1 tabletq 4 724.2 Silcoff, etaminophen 11/09/2014 hours as Adrian, needed for M.D. severe pain 728.71 Gabapentin 06/09/2014 - Hx Capsules 100[facility] 120caps [facility] mouth four Yue, times a day D.O. for pain in feet Chantix 05/27/2014 - Hx Tablets 1mg 1tabs # 1 305.1 Sopchak, 12/16/2014 continuing Yue, pack D.O. Sumatriptan 05/27/2014 - Hx Tablets 50mg 9tabs take 1 M79.674 Sopchak, Succinate 01/24/2016 tablet by Yue, mouth at D.O. onset of migraine, may repeat once after 2 hours if needed, max of 3 times per week Spiriva 05/27/2014 - Hx Capsules 18mcg 90caps Inhale The J20.9 [facility], Handihaler 06/14/2015 Contents Of Yue, One Capsule D.O. By Mouth Via Handihaler Daily No Active 05/20/2014 - Hx Unknown Medications 05/20/2014 Omeprazole 05/20/2014 - Hx Capsules DR 40mg 90caps 1 by mouth K21.[address] [facility], 07/28/2015 every day Yue, D.O. Sumatriptan 05/20/2014 - Hx Tablets 25mg 9tabs take one 346.00 Sopchak, Succinate 05/27/2014 tablet by Yue, mouth at one D.O. time may repeat after 2 hours if headache persists up to 8 tablets per day as needed for migr Nicotine - Hx Patches 21mg/24 Cardenas, Transdermal 06/20/2017 24HR HR DO Hetal Johnson Medications Administered in Office Medication Date Status Form Strength Qnty SIG Indications Ordering Provider injection, Administered Injection Sopchak, kenalog, 10 mg 016 Yue, D.O. injection, Administered Injection Sopchak, kenalog, 10 mg 016 Yue, D.O. injection, Administered Injection Sopchak, kenalog, 10 mg 015 Yue, D.O. SC/Im Administered Injection Sopchak, Injections 015 Yue, D.O. injection, Administered Injection Sopchak, kenalog, 10 mg 015 Yue, D.O. SC/Im Administered Injection Sopchak, Injections 015 Yue, D.O. Immunizations CPT Code Status Date Vaccine Lot # [id number] Given 01/26/2017 Influenza Virus Vaccine, Quadrivalent, Split, [id number] Preservative Free 65551 Given 05/22/2016 Pneumococcal Immunization [id number] Given 05/22/2016 Influenza Virus Vaccine, Quadrivalent, Split, [id number] Preservative Free 26064 Given 03/15/2015 Influenza Virus Vaccine, Quadrivalent, Split, [id number] Preservative Free 02358 Given 03/15/2015 Prevnar 13 [id number] 55346 Given Unknown Flu, Split Virus 3Yrs Vital Signs Date Vital Result Comment 08/27/2017 BP Systolic 148 mmHg BP Diastolic 76 mmHg Height 64 inches 5'4" Weight 177.00 lb BMI (Body Mass Index) 30.4 kg/m2 06/27/2017 BP Systolic 122 mmHg BP Diastolic 85 mmHg Weight 184.00 lb with sneakers 06/20/2017 BP Systolic 106 mmHg BP Diastolic 62 mmHg Height 65 inches W/Shoes Weight 180.00 lb W/Shoes BMI (Body Mass Index) 30.0 kg/m2 04/18/2017 BP Systolic 110 mmHg BP Diastolic 68 mmHg Weight 184.00 lb with sneakers 04/02/2017 BP Systolic 122 mmHg BP Diastolic 82 mmHg 02/22/2017 BP Systolic 142 mmHg BP Diastolic 88 mmHg Heart Rate 70 /min O2 % BldC Oximetry 98 % Body Temperature 98.3 F Weight 186.00 lb with sneakers 01/26/2017 BP Systolic 130 mmHg BP Diastolic 76 mmHg Weight 187.00 lb w/sneakers 11/03/2016 BP Systolic 120 mmHg BP Diastolic 72 mmHg Weight 185.00 lb with sneakers 09/18/2016 BP Systolic 140 mmHg BP Diastolic 78 mmHg Weight 194.00 lb 08/15/2016 BP Systolic 128 mmHg BP Diastolic 76 mmHg Weight 203.00 lb 07/04/2016 BP Systolic 152 mmHg BP Diastolic 80 mmHg Body Temperature 97.8 F Weight 206.00 lb with sneakers 05/22/2016 BP Systolic 168 mmHg BP Diastolic 84 mmHg Weight 204.00 lb 84 04/06/2016 BP Systolic 176 mmHg BP Diastolic 80 mmHg Height 64.25 inches 5'4.25" Weight 204.00 lb w/shoes BMI (Body Mass Index) 34.7 kg/m2 01/24/2016 BP Systolic 180 mmHg BP Diastolic 100 mmHg BP Systolic Recheck 178 mmHg recheck ra BP Diastolic Recheck 90 mmHg recheck ra Height 201 inches 16'9" 12/14/2015 BP Systolic 146 mmHg BP Diastolic 80 mmHg Weight 204.00 lb w/shoes 10/13/2015 BP Systolic 104 mmHg BP Diastolic 58 mmHg Weight 204.00 lb 08/13/2015 BP Systolic 140 mmHg BP Diastolic 80 mmHg Height 65 inches 5'5" w/shoes Weight 208.00 lb BMI (Body Mass Index) 34.6 kg/m2 06/14/2015 BP Systolic 157 mmHg BP Diastolic 82 mmHg Heart Rate 78 /min Weight 200.00 lb w/shoes 04/13/2015 BP Systolic 135 mmHg BP Diastolic 70 mmHg Heart Rate 84 /min Weight 194.00 lb w/shoes 03/15/2015 BP Systolic 168 mmHg BP Diastolic 82 mmHg Weight 200.00 lb 02/11/2015 BP Systolic 143 mmHg BP Diastolic 76 mmHg Heart Rate 77 /min Weight 199.00 lb w/shoes and jacket 01/11/2015 BP Systolic 126 mmHg BP Diastolic 68 mmHg Heart Rate 70 /min Height 65.25 inches 5'5.25" w/shoes Weight 195.00 lb w/shoes BMI (Body Mass Index) 32.2 kg/m2 12/10/2014 BP Systolic 140 mmHg BP Diastolic 74 mmHg 11/10/2014 BP Systolic 127 mmHg BP Diastolic 78 mmHg Weight 197.00 lb shoes on 09/07/2014 BP Systolic 136 mmHg BP Diastolic 85 mmHg Heart Rate 88 /min Weight 201.00 lb shoes on 08/07/2014 BP Systolic 130 mmHg BP Diastolic 78 mmHg Weight 195.00 lb w/shoes 07/07/2014 BP Systolic 106 mmHg BP Diastolic 64 mmHg Heart Rate 82 /min Weight 196.00 lb 06/29/2014 BP Systolic 118 mmHg BP Diastolic 70 mmHg Heart Rate 96 /min Body Temperature 97.9 F 06/09/2014 BP Systolic 119 mmHg BP Diastolic 79 mmHg Heart Rate 71 /min Height 65 inches 5'5" Weight 196.00 lb BMI (Body Mass Index) 32.6 kg/m2 05/27/2014 BP Systolic 124 mmHg BP Diastolic 76 mmHg 05/20/2014 BP Systolic 130 mmHg BP Diastolic 80 mmHg Height 65 inches 5'5" Weight 196.00 lb BMI (Body Mass Index) 32.6 kg/m2 Results Test Date Test Result H/L Range Note Ua Inhouse 08/27/2017 Ua Glucose - 1 Ua Bilirubin - 1 Ua Ketones - 1 Ua Specific Wellborn 1.005 1 Ua Blood - 1 Ua PH 5.0 1 Ua Protein - 1 Ua Urobilinogen - 1 Ua Nitrite - 1 Ua Leukocytes - 1 Laboratory test finding 08/27/2017 Cytology <pending> CBC Auto Diff 06/20/2017 White Blood Count 6.8 10^3/uL 3.5-10.8 Red Blood Count 4.09 10^6/uL 4.0-5.4 Hemoglobin 13.4 g/dL 12.0-16.0 Hematocrit 41 % 35-47 Mean Corpuscular Volume 100 fL High 80-97 Mean Corpuscular Hemoglobin 33 pg High 27-31 Mean Corpuscular HGB Conc 33 g/dL 31-36 Red Cell Distribution Width 13 % 10.5-15 Platelet Count 291 10^3/uL 150-450 Mean Platelet Volume 10 um3 7.4-10.4 Abs Neutrophils 3.2 10^3/uL 1.5-7.7 Abs Lymphocytes 2.6 10^3/uL 1.0-4.8 Abs Monocytes 0.6 10^3/uL 0-0.8 Abs Eosinophils 0.3 10^3/uL 0-0.6 Abs Basophils 0.1 10^3/uL 0-0.2 Abs Nucleated RBC 0 10^3/uL Granulocyte % 46.7 % 38-83 Lymphocyte % 37.9 % 25-47 Monocyte % 9.1 % High 1-9 Eosinophil % 4.9 % 0-6 Basophil % 1.4 % 0-2 Nucleated Red Blood Cells % 0 Comp Metabolic Panel 06/20/2017 Sodium 137 mmol/L 133-145 Potassium 5.0 mmol/L 3.5-5.0 Chloride 101 mmol/L 101-111 Co2 Carbon Dioxide 28 mmol/L 22-32 Anion Gap 8 mmol/L 2-11 Glucose 114 mg/dL High 70-100 Blood Urea Nitrogen 20 mg/dL 6-24 Creatinine 1.16 mg/dL High 0.51-0.95 BUN/Creatinine Ratio 17.2 8-20 Calcium 9.8 mg/dL 8.6-10.3 Total Protein 6.5 g/dL 6.4-8.9 Albumin 4.1 g/dL 3.2-5.2 Globulin 2.4 g/dL 2-4 Albumin/Globulin Ratio 1.7 1-3 Total Bilirubin 0.30 mg/dL 0.2-1.0 Alkaline Phosphatase 83 U/L 34-104 Alt 14 U/L 7-52 Ast 15 U/L 13-39 Egfr Non- 48.7 >60 Egfr 62.6 >60 2 Laboratory test finding 06/20/2017 TSH (Thyroid Stim Horm) 3.48 mcIU/mL 0.34-5.60 Magnesium 2.0 mg/dL 1.9-2.7 Erythrocyte Sed Rate 11 mm/Hr 0-30 C Reactive Protein < 1.00 mg/L < 5.00 3 Phosphorus 5.5 mg/dL High 2.5-5.0 Vitamin B12 518 pg/mL 180-914 4 CBC Auto Diff 04/12/2017 White Blood Count 10.5 10^3/uL 3.5-10.8 Red Blood Count 4.51 10^6/uL 4.0-5.4 Hemoglobin 15.0 g/dL 12.0-16.0 Hematocrit 45 % 35-47 Mean Corpuscular Volume 99 fL High 80-97 Mean Corpuscular Hemoglobin 33 pg High 27-31 Mean Corpuscular HGB Conc 34 g/dL 31-36 Red Cell Distribution Width 13 % 10.5-15 Platelet Count 376 10^3/uL 150-450 Mean Platelet Volume 10 um3 7.4-10.4 Abs Neutrophils 6.7 10^3/uL 1.5-7.7 Abs Lymphocytes 2.3 10^3/uL 1.0-4.8 Abs Monocytes 0.9 10^3/uL High 0-0.8 Abs Eosinophils 0.4 10^3/uL 0-0.6 Abs Basophils 0.1 10^3/uL 0-0.2 Abs Nucleated RBC 0.01 10^3/uL Granulocyte % 64.0 % 38-83 Lymphocyte % 22.2 % Low 25-47 Monocyte % 9.0 % 1-9 Eosinophil % 3.5 % 0-6 Basophil % 1.3 % 0-2 Nucleated Red Blood Cells % 0.1 Comp Metabolic Panel 04/12/2017 Sodium 137 mmol/L 133-145 Potassium 4.7 mmol/L 3.5-5.0 Chloride 101 mmol/L 101-111 Co2 Carbon Dioxide 28 mmol/L 22-32 Anion Gap 8 mmol/L 2-11 Glucose 112 mg/dL High 70-100 Blood Urea Nitrogen 17 mg/dL 6-24 Creatinine 0.79 mg/dL 0.51-0.95 BUN/Creatinine Ratio 21.5 High 8-20 Calcium 10.0 mg/dL 8.6-10.3 Total Protein 6.9 g/dL 6.4-8.9 Albumin 4.1 g/dL 3.2-5.2 Globulin 2.8 g/dL 2-4 Albumin/Globulin Ratio 1.5 1-3 Total Bilirubin 0.30 mg/dL 0.2-1.0 Alkaline Phosphatase 100 U/L 34-104 Alt 55 U/L High 7-52 Ast 20 U/L 13-39 Egfr Non- 75.8 >60 Egfr 97.5 >60 5 Laboratory test finding 04/12/2017 Magnesium 2.1 mg/dL 1.9-2.7 TSH (Thyroid Stim Horm) 1.24 mcIU/mL 0.34-5.60 Free T4 (Free Thyroxine) 1.09 ng/dL 0.61-1.12 T3 Free 3.30 pg/mL 2.5-3.9 Thyroid Autoantibodies Profile 04/12/2017 Thyroperoxidase AB 0.18 IU/mL & lt;9 Thyroglobulin AB <1.8 IU/mL <4.0 6 Laboratory test finding 04/12/2017 Vitamin B12 522 pg/mL 180-914 7 Phosphorus 4.1 mg/dL 2.5-5.0 Lipid Profile (Trig/Chol/HDL) 04/12/2017 Triglycerides 200 mg/dL 8 Cholesterol 156 mg/dL 9 HDL Cholesterol 35.5 mg/dL 10 LDL Cholesterol 81 mg/dL 11 Laboratory test finding 04/02/2017 Culture Throat Rapid Screen negative Culture Throat negative Urinalysis Profile 03/13/2017 Urine Color Yellow Urine Appearance Cloudy Urine Specific Wellborn 1.014 1.010-1.030 Urine pH 5.0 5-9 Urine Urobilinogen Negative Negative Urine Ketones Negative Negative Urine Protein Negative Negative Urine Leukocytes 2+ Negative Urine Blood Negative Negative Urine Nitrite Negative Negative Urine Bilirubin Negative Negative Urine Glucose Negative Negative Urine White Blood Cell 1+(6-10/hpf) Absent Urine Red Blood Cell Absent Absent Urine Bacteria Absent Absent Urine Squamous Epithelial Cell Present Absent Urine Hyaline Casts Present Absent Laboratory test finding 03/13/2017 Troponin-I (TnI) 0.19 ng/mL High < 0.04 12 Urine Culture And Sensitivities SEE RESULT BELOW 13 Laboratory test finding 03/13/2017 Lactic Acid 0.8 mmol/L 0.5-2.0 14 CBC Auto Diff 03/13/2017 White Blood Count 10.2 10^3/uL 3.5-10.8 Red Blood Count 3.77 10^6/uL Low 4.0-5.4 Hemoglobin 12.6 g/dL 12.0-16.0 Hematocrit 38 % 35-47 Mean Corpuscular Volume 101 fL High 80-97 Mean Corpuscular Hemoglobin 34 pg High 27-31 Mean Corpuscular HGB Conc 33 g/dL 31-36 Red Cell Distribution Width 14 % 10.5-15 Platelet Count 223 10^3/uL 150-450 Mean Platelet Volume 10 um3 7.4-10.4 Abs Neutrophils 7.0 10^3/uL 1.5-7.7 Abs Lymphocytes 2.0 10^3/uL 1.0-4.8 Abs Monocytes 0.8 10^3/uL 0-0.8 Abs Eosinophils 0.4 10^3/uL 0-0.6 Abs Basophils 0.1 10^3/uL 0-0.2 Abs Nucleated RBC 0.01 10^3/uL Granulocyte % 68.6 % 38-83 Lymphocyte % 19.8 % Low 25-47 Monocyte % 7.5 % 1-9 Eosinophil % 3.5 % 0-6 Basophil % 0.6 % 0-2 Nucleated Red Blood Cells % 0.1 Comp Metabolic Panel 03/13/2017 Sodium 136 mmol/L 133-145 Potassium 4.6 mmol/L 3.5-5.0 Chloride 105 mmol/L 101-111 Co2 Carbon Dioxide 26 mmol/L 22-32 Anion Gap 5 mmol/L 2-11 Glucose 99 mg/dL 70-100 Blood Urea Nitrogen 25 mg/dL High 6-24 Creatinine 0.90 mg/dL 0.51-0.95 BUN/Creatinine Ratio 27.8 High 8-20 Calcium 8.8 mg/dL 8.6-10.3 Total Protein 6.2 g/dL Low 6.4-8.9 Albumin 3.8 g/dL 3.2-5.2 Globulin 2.4 g/dL 2-4 Albumin/Globulin Ratio 1.6 1-3 Total Bilirubin 0.30 mg/dL 0.2-1.0 Alkaline Phosphatase 62 U/L 34-104 Alt 12 U/L 7-52 Ast 15 U/L 13-39 Egfr Non- 65.2 >60 Egfr 83.9 >60 15 Laboratory test finding 03/13/2017 Troponin-I (TnI) 0.21 ng/mL High < 0.04 16 Laboratory test finding 03/13/2017 Point of Care Glucose 122 mg/dL High 70 -100 17 Laboratory test finding 01/26/2017 Magnesium 1.7 mg/dL Low 1.9-2.7 Vitamin B12 610 pg/mL 180-914 18 Comp Metabolic Panel 01/26/2017 Sodium 139 mmol/L 133-145 Potassium 4.5 mmol/L 3.5-5.0 Chloride 104 mmol/L 101-111 Co2 Carbon Dioxide 29 mmol/L 22-32 Anion Gap 6 mmol/L 2-11 Glucose 88 mg/dL 70-100 Blood Urea Nitrogen 6 mg/dL 6-24 Creatinine 0.67 mg/dL 0.51-0.95 BUN/Creatinine Ratio 9.0 8-20 Calcium 9.3 mg/dL 8.6-10.3 Total Protein 6.4 g/dL 6.4-8.9 Albumin 3.9 g/dL 3.2-5.2 Globulin 2.5 g/dL 2-4 Albumin/Globulin Ratio 1.6 1-3 Total Bilirubin 0.20 mg/dL 0.2-1.0 Alkaline Phosphatase 65 U/L 34-104 Alt 10 U/L 7-52 Ast 14 U/L 13-39 Egfr Non- 91.7 >60 Egfr 118.0 >60 19 CBC Auto Diff 01/26/2017 White Blood Count 7.0 10^3/uL 3.5-10.8 Red Blood Count 4.19 10^6/uL 4.0-5.4 Hemoglobin 14.0 g/dL 12.0-16.0 Hematocrit 41 % 35-47 Mean Corpuscular Volume 99 fL High 80-97 Mean Corpuscular Hemoglobin 33 pg High 27-31 Mean Corpuscular HGB Conc 34 g/dL 31-36 Red Cell Distribution Width 13 % 10.5-15 Platelet Count 278 10^3/uL 150-450 Mean Platelet Volume 10 um3 7.4-10.4 Abs Neutrophils 4.3 10^3/uL 1.5-7.7 Abs Lymphocytes 1.8 10^3/uL 1.0-4.8 Abs Monocytes 0.5 10^3/uL 0-0.8 Abs Eosinophils 0.4 10^3/uL 0-0.6 Abs Basophils 0.1 10^3/uL 0-0.2 Abs Nucleated RBC 0 10^3/uL Granulocyte % 61.0 % 38-83 Lymphocyte % 25.6 % 25-47 Monocyte % 6.9 % 1-9 Eosinophil % 5.6 % 0-6 Basophil % 0.9 % 0-2 Nucleated Red Blood Cells % 0 Laboratory test finding 01/26/2017 Vitamin D Total 25(Oh) 43.7 ng/mL 20- 50 TSH (Thyroid Stim Horm) 0.66 mcIU/mL 0.34-5.60 Paraneoplastic Evaluation 11/01/2016 Paraneoplastic Ab Interp See Comment 20 Anti-Neuronal Nuclear Ab Type1 Negative titer <1:240 Reflex Added None. 21 Anti-Neuronal Nuclear Ab Type2 Negative titer <1:240 22 Anti-Neuronal Nuclear Ab Type3 Negative titer <1:240 23 Anti-Glial/Neuronal Nuc Ab-1 A Negative titer <1:240 24 Purkinje Cell Cytoplasm Type 1 Negative titer <1:240 25 Purkinje Cell Cytoplasm Type 2 Negative titer <1:240 26 Purkinje Cell Cytoplasm Typ Tr Negative titer <1:240 27 Amphiphysin Antibody Negative titer <1:240 28 CRMP-5 IgG Antibody Negative titer <1:240 29 Anti-Striated Muscle Antibody Negative titer <1:120 30 Calcium Channel Binding Ab P/Q 0.00 nmol/L <=0.02 31 N Type Calcium Channel Binding 0.01 nmol/L <=0.03 32 ACh Receptor Muscle Binding Ab 0.00 nmol/L <=0.02 33 AChR Ganglionic Neuronal Ab 0.00 nmol/L <=0.02 34 Voltage-Gated Potassium Chann 0.00 nmol/L <=0.02 35 Laboratory test finding 12/14/2015 Uric Acid 5.7 mg/dL 2.3-6.6 Basic Metabolic Panel 12/14/2015 Sodium 138 mmol/L 133-145 Potassium 4.8 mmol/L 3.5-5.0 Chloride 101 mmol/L 101-111 Co2 Carbon Dioxide 32 mmol/L 22-32 Anion Gap 5 mmol/L 2-11 Glucose 94 mg/dL 70-100 Blood Urea Nitrogen 13 mg/dL 6-24 Creatinine 0.74 mg/dL 0.51-0.95 BUN/Creatinine Ratio 17.6 8-20 Calcium 9.8 mg/dL 8.6-10.3 Egfr Non- 82.1 >60 Egfr 105.6 >60 36 Laboratory test finding 10/11/2015 C Reactive Protein 3.62 mg/L < 5.00 37 TSH (Thyroid Stim Horm) 1.07 ?IU/mL 0.34-5.60 38 Free T4 (Free Thyroxine) 1.03 ng/dL 0.61-1.12 39 Folic Acid (Folate) > 20.00 ng/mL >3.99 40 Vitamin B12 689 pg/mL 180-914 41 Methylmalonic Acid Mma 0.16 nmol/mL <=0.40 42 CBC Auto Diff 06/14/2015 White Blood Count 7.2 10^3/uL 3.5-10.8 Red Blood Count 4.60 10^6/uL 4.0-5.4 Hemoglobin 15.2 g/dL 12.0-16.0 Hematocrit 46 % 35-47 Mean Corpuscular Volume 101 fL High 80-97 Mean Corpuscular Hemoglobin 33 pg High 27-31 Mean Corpuscular HGB Conc 33 g/dL 31-36 Red Cell Distribution Width 13 % 10.5-15 Platelet Count 304 10^3/uL 150-450 Mean Platelet Volume 10 um3 7.4-10.4 Abs Neutrophils 4.7 10^3/uL 1.5-7.7 Abs Lymphocytes 1.9 10^3/uL 1.0-4.8 Abs Monocytes 0.5 10^3/uL 0-0.8 Abs Eosinophils 0.1 10^3/uL 0-0.6 Abs Basophils 0.1 10^3/uL 0-0.2 Abs Nucleated RBC 0 10^3/uL Granulocyte % 65.1 % 38-83 Lymphocyte % 25.6 % 25-47 Monocyte % 6.3 % 1-9 Eosinophil % 1.7 % 0-6 Basophil % 1.3 % 0-2 Nucleated Red Blood Cells % 0 Laboratory test finding 06/14/2015 Amylase 31 U/L 29-103 Lipase 26 U/L 11.0-82.0 Comp Metabolic Panel 06/14/2015 Sodium 138 mmol/L 133-145 Potassium 4.3 mmol/L 3.5-5.0 Chloride 103 mmol/L 101-111 Co2 Carbon Dioxide 31 mmol/L 22-32 Anion Gap 4 mmol/L 2-11 Glucose 88 mg/dL 70-100 Blood Urea Nitrogen 12 mg/dL 6-24 Creatinine 0.76 mg/dL 0.51-0.95 BUN/Creatinine Ratio 15.8 8-20 Calcium 10.0 mg/dL 8.6-10.3 Total Protein 6.9 g/dL 6.4-8.9 Albumin 4.4 g/dL 3.2-5.2 Globulin 2.5 g/dL 2-4 Albumin/Globulin Ratio 1.8 1-3 Total Bilirubin 0.30 mg/dL 0.2-1.0 Alkaline Phosphatase 59 U/L 34-104 Alt 18 U/L 7-52 Ast 18 U/L 13-39 Egfr Non- 79.9 >60 Egfr 102.8 >60 43 Xray 11/10/2014 X-Ray, Foot, Normal bilateral fot Bilateral Surgical Pathology 06/19/2014 S RUN DATE: <SEE NOTE> Clotest 06/19/2014 Clotest (SEE NOTE) 45 Comp Metabolic Panel 05/20/2014 Sodium 137 mmol/L 133-145 Potassium 4.6 mmol/L 3.5-5.0 Chloride 100 mmol/L Low 101-111 Co2 Carbon Dioxide 31 mmol/L 22-32 Anion Gap 6 mmol/L 2-11 Glucose 94 mg/dL 70-100 Blood Urea Nitrogen 13 mg/dL 6-24 Creatinine 0.77 mg/dL 0.51-0.95 BUN/Creatinine Ratio 16.9 8-20 Calcium 10.1 mg/dL 8.6-10.3 Total Protein 7.2 g/dL 6.4-8.9 Albumin 4.5 g/dL 3.2-5.2 Globulin 2.7 g/dL 2-4 Albumin/Globulin Ratio 1.7 1-3 Total Bilirubin 0.30 mg/dL 0.2-1.0 Alkaline Phosphatase 96 U/L 34-104 Alt 13 U/L 7-52 Ast 12 U/L Low 13-39 Egfr Non- 79.0 >60 Egfr 101.6 >60 46 Lipid Profile (Trig/Chol/HDL) 05/20/2014 Triglycerides 212 mg/dL 47 Cholesterol 268 mg/dL 48 HDL Cholesterol 52.7 mg/dL 49 LDL Cholesterol 173 mg/dL 50 Laboratory test finding 05/20/2014 Vitamin B12 381 pg/mL 180-914 51 Vitamin D, 25 Hydroxy 05/20/2014 25-Hydroxy Vitamin D2 <4.0 ng/mL 25-Hydroxy Vitamin D3 20 ng/mL 25-Hydroxy Vitamin D Total 20 ng/mL 52 Laboratory test finding 05/20/2014 Magnesium 2.2 mg/dL 1.9-2.7 TSH (Thyroid Stimulating Horm) 1.39 IU/mL 0.34-5.60 Erythrocyte Sed Rate 15 mm/Hr 0-30 Hepatitis C Antibody Nonreactive Nonreactive C Reactive Protein 1.59 mg/L < 5.00 53 HIV 1/2 AB Evaluation 05/20/2014 HIV 1 2 Antibody Nonreactive Nonreactive 54 H Pylori Iga 05/20/2014 Helicobacter pylori IgA Negative Negative Ab H pylori IgA Ab Index 2.78 55 Hpigg 05/20/2014 Helicobacter pylori IgG Ab Negative Negative H pylori IgG AB Index 4.69 56 H.Pylori Igm AB 05/20/2014 Helicobacter pylori IgM Ab Negative Negative H pylori IgM AB Index 15.20 57 CBC Auto Diff 05/20/2014 White Blood Count 7.6 10^3/uL 4.8-10.8 Red Blood Count 4.75 10^6/uL 4.0-5.4 Hemoglobin 15.5 g/dL 12.0-16.0 Hematocrit 46 % 35-47 Mean Corpuscular Volume 97 fL 80-97 Mean Corpuscular Hemoglobin 33 pg High 27-31 Mean Corpuscular HGB Conc 34 g/dL 31-36 Red Cell Distribution Width 13 % 10.5-15 Platelet Count 305 10^3/uL 150-450 Mean Platelet Volume 10 um3 7.4-10.4 Abs Neutrophils 4.6 10^3/uL 1.5-7.7 Abs Lymphocytes 2.1 10^3/uL 1.0-4.8 Abs Monocytes 0.5 10^3/uL 0-0.8 Abs Eosinophils 0.3 10^3/uL 0-0.6 Abs Basophils 0.1 10^3/uL 0-0.2 Abs Nucleated RBC 0.01 10^3/uL Granulocyte % 60.7 % 38-83 Lymphocyte % 27.9 % 25-47 Monocyte % 6.0 % 1-9 Eosinophil % 4.0 % 0-6 Basophil % 1.4 % 0-2 Nucleated Red Blood Cells % 0.1 1 void, clear, yellow 2 Because ethnic data is not always readily available, this report includes an eGFR for both -Americans and non- Americans. The National Kidney Disease Education Program (NKDEP) does not endorse the use of the MDRD equation for patients that are not between the ages of 18 and 70, are , have extremes of body size, muscle mass, or nutritional status, or are non- or non-. According to the National Kidney Foundation, irrespective of diagnosis, the stage of the disease is based on the level of kidney function: Stage Description GFR(mL/min/1.73 m(2)) 1 Kidney damage with normal or decreased GFR 90 2 Kidney damage with mild decrease in GFR 60-89 3 Moderate decrease in GFR 30-59 4 Severe decrease in GFR 15-29 5 Kidney failure <15 (or dialysis) 3 Acute inflammation: >10.00 4 Normal Range 180 to 914 Indeterminate Range 145 to 180 Deficient Range <145 5 Because ethnic data is not always readily available, this report includes an eGFR for both -Americans and non- Americans. The National Kidney Disease Education Program (NKDEP) does not endorse the use of the MDRD equation for patients that are not between the ages of 18 and 70, are , have extremes of body size, muscle mass, or nutritional status, or are non- or non-. According to the National Kidney Foundation, irrespective of diagnosis, the stage of the disease is based on the level of kidney function: Stage Description GFR(mL/min/1.73 m(2)) 1 Kidney damage with normal or decreased GFR 90 2 Kidney damage with mild decrease in GFR 60-89 3 Moderate decrease in GFR 30-59 4 Severe decrease in GFR 15-29 5 Kidney failure <15 (or dialysis) 6 ADDITIONAL INFORMATION The thyroglobulin antibody testing method is an immunoenzymatic assay manufactured by [employer] and performed on the XGIMI DXI 800. Values obtained from different assay methods or kits may be different and cannot be used interchangeably. The results cannot be interpreted as absolute evidence for the presence or absence of malignant disease. Test Performed by: [facility] [address] [place] [address] 7 Normal Range 180 to 914 Indeterminate Range 145 to 180 Deficient Range <145 8 Desirable: <150 Borderline High: 150-199 High: 200-499 Very High: >500 9 Desirable: <200 Borderline High: 200-239 High: >239 10 Low: <40 Desirable: 40-60 High: >60 11 Desirable: <100 Near Optimal: 100-129 Borderline High: 130-159 High: 160-189 Very High: >189 12 Result TnIDx:0.19 Called to [id number] at: 20:23:57 by:[id number] Read back by: NANCY 13 SEE RESULT BELOW Name: FATEMEH LOFTON : [address]: Ochoa Kc MD Acct: [id number] Unit: [id number] AGE: 56 Location: [facility] 445-02 Re03/13/17 Dis: 03/14/17 SEX: F Status: DIS Shakir SPEC: [id number] DENNYS: 03/13/[address]: Jovon Dillon MD REQ: [id number] RECD: 03/13/17 STATUS: HUBERT NIEVES DR: Yue Stock DO _ SOURCE: URINE SPDESC: ORDERED: Urine Culture Procedure Result Reported Site Urine Culture Final 03/15/17- 1113 ML No growth of clinically significant organisms * ML - MAIN LAB (PSC1) . END OF REPORT * ML=Testing performed at Main Lab DEPARTMENT OF PATHOLOGY, [address] [place] [address] Judd Arechiga M.D. Director [facility] # [id number] 14 [facility] Severe Sepsis and Septic Shock Management Bundle Measure requires all lactic acids initially measuring >2.0 mmol/L be repeated. 15 Because ethnic data is not always readily available, this report includes an eGFR for both -Americans and non- Americans. The National Kidney Disease Education Program (NKDEP) does not endorse the use of the MDRD equation for patients that are not between the ages of 18 and 70, are , have extremes of body size, muscle mass, or nutritional status, or are non- or non-. According to the National Kidney Foundation, irrespective of diagnosis, the stage of the disease is based on the level of kidney function: Stage Description GFR(mL/min/1.73 m(2)) 1 Kidney damage with normal or decreased GFR 90 2 Kidney damage with mild decrease in GFR 60-89 3 Moderate decrease in GFR 30-59 4 Severe decrease in GFR 15-29 5 Kidney failure <15 (or dialysis) 16 Result TnIDx:0.21 Called to [id number] at: 18:39:53 by:[id number] Read back by: [id number] 17 Puff Iron Operator: [id number] Normal Range 180 to 914 Indeterminate Range 145 to 180 Deficient Range <145 19 Because ethnic data is not always readily available, this report includes an eGFR for both -Americans and non- Americans. The National Kidney Disease Education Program (NKDEP) does not endorse the use of the MDRD equation for patients that are not between the ages of 18 and 70, are , have extremes of body size, muscle mass, or nutritional status, or are non- or non-. According to the National Kidney Foundation, irrespective of diagnosis, the stage of the disease is based on the level of kidney function: Stage Description GFR(mL/min/1.73 m(2)) 1 Kidney damage with normal or decreased GFR 90 2 Kidney damage with mild decrease in GFR 60-89 3 Moderate decrease in GFR 30-59 4 Severe decrease in GFR 15-29 5 Kidney failure <15 (or dialysis) 20 No informative autoantibodies were detected in the Paraneoplastic Evaluation. However, a negative result does not exclude neurological autoimmunity with or without associated neoplasia. Sensitivity and specificity of antibody testing are enhanced by testing both serum and CSF. 21 ADDITIONAL INFORMATION This test was developed and its performance characteristics determined by [facility] in a manner consistent with CLIA requirements. This test has not been cleared or approved by the U.S. Food and Drug Administration. 22 ADDITIONAL INFORMATION This test was developed and its performance characteristics determined by [facility] in a manner consistent with CLIA requirements. This test has not been cleared or approved by the U.S. Food and Drug Administration. 23 ADDITIONAL INFORMATION This test was developed and its performance characteristics determined by [facility] in a manner consistent with CLIA requirements. This test has not been cleared or approved by the U.S. Food and Drug Administration. 24 ADDITIONAL INFORMATION This test was developed and its performance characteristics determined by [facility] in a manner consistent with CLIA requirements. This test has not been cleared or approved by the U.S. Food and Drug Administration. 25 ADDITIONAL INFORMATION This test was developed and its performance characteristics determined by [facility] in a manner consistent with CLIA requirements. This test has not been cleared or approved by the U.S. Food and Drug Administration. 26 ADDITIONAL INFORMATION This test was developed and its performance characteristics determined by [facility] in a manner consistent with CLIA requirements. This test has not been cleared or approved by the U.S. Food and Drug Administration. 27 ADDITIONAL INFORMATION This test was developed and its performance characteristics determined by [facility] in a manner consistent with CLIA requirements. This test has not been cleared or approved by the U.S. Food and Drug Administration. 28 ADDITIONAL INFORMATION This test was developed and its performance characteristics determined by [facility] in a manner consistent with CLIA requirements. This test has not been cleared or approved by the U.S. Food and Drug Administration. 29 ADDITIONAL INFORMATION This test was developed and its performance characteristics determined by [facility] in a manner consistent with CLIA requirements. This test has not been cleared or approved by the U.S. Food and Drug Administration. 30 ADDITIONAL INFORMATION This test was developed and its performance characteristics determined by [facility] in a manner consistent with CLIA requirements. This test has not been cleared or approved by the U.S. Food and Drug Administration. 31 ADDITIONAL INFORMATION This test was developed and its performance characteristics determined by [facility] in a manner consistent with CLIA requirements. This test has not been cleared or approved by the U.S. Food and Drug Administration. 32 ADDITIONAL INFORMATION This test was developed and its performance characteristics determined by [facility] in a manner consistent with CLIA requirements. This test has not been cleared or approved by the U.S. Food and Drug Administration. 33 ADDITIONAL INFORMATION This test was developed and its performance characteristics determined by [facility] in a manner consistent with CLIA requirements. This test has not been cleared or approved by the U.S. Food and Drug Administration. 34 ADDITIONAL INFORMATION This test was developed and its performance characteristics determined by [facility] in a manner consistent with CLIA requirements. This test has not been cleared or approved by the U.S. Food and Drug Administration. 35 ADDITIONAL INFORMATION This test was developed and its performance characteristics determined by [facility] in a manner consistent with CLIA requirements. This test has not been cleared or approved by the U.S. Food and Drug Administration. Test Performed by: [facility] - [address] [address] 36 Because ethnic data is not always readily available, this report includes an eGFR for both -Americans and non- Americans. The National Kidney Disease Education Program (NKDEP) does not endorse the use of the MDRD equation for patients that are not between the ages of 18 and 70, are , have extremes of body size, muscle mass, or nutritional status, or are non- or non-. According to the National Kidney Foundation, irrespective of diagnosis, the stage of the disease is based on the level of kidney function: Stage Description GFR(mL/min/1.73 m(2)) 1 Kidney damage with normal or decreased GFR 90 2 Kidney damage with mild decrease in GFR 60-89 3 Moderate decrease in GFR 30-59 4 Severe decrease in GFR 15-29 5 Kidney failure <15 (or dialysis) 37 Acute inflammation: >10.00 38 Copy Result to: YUE STOCK ([id number]) 39 Copy Result to: YUE STOCK ([id number]) 40 Copy Result to: YUE STOCK ([id number]) 41 Normal Range 180 to 914 Indeterminate Range 145 to 180 Deficient Range <145 42 Test Performed by: [place] [address] Manganese Wheeler: Dung Clements II, M.D., Ph.D. 43 Because ethnic data is not always readily available, this report includes an eGFR for both -Americans and non- Americans. The National Kidney Disease Education Program (NKDEP) does not endorse the use of the MDRD equation for patients that are not between the ages of 18 and 70, are , have extremes of body size, muscle mass, or nutritional status, or are non- or non-. According to the National Kidney Foundation, irrespective of diagnosis, the stage of the disease is based on the level of kidney function: Stage Description GFR(mL/min/1.73 m(2)) 1 Kidney damage with normal or decreased GFR 90 2 Kidney damage with mild decrease in GFR 60-89 3 Moderate decrease in GFR 30-59 4 Severe decrease in GFR 15-29 5 Kidney failure <15 (or dialysis) 44 RUN DATE: 06/23/14 [facility] LAB LIVE PAGE 1 RUN TIME: [address] [place] [address] Specimen Inquiry Name: FATEMEH LOFTON : [address]: David Brown MD Acct: [id number] Unit: [id number] AGE: 53 Location: ENDO Re06/19/14 SEX: F Status: REG REF SPEC: [id number] DENNYS: 06/19/14-[address]: David Brown MD REQ: [id number] RECD: 06/19/14 STATUS: ALIS NIEVES DR: Yue Stock DO _ ORDERED: LEVEL IV FINAL DIAGNOSIS Colon, at 20 cm, biopsy: -- Hyperplastic polyp. CLINICAL HISTORY No clinical information provided POST-OPERATIVE DIAGNOSIS Esophagus - hiatal hernia; stomach - gastritis, biopsied; duodenum - normal. Colonoscopy to cecum - tics, polyp biopsied GROSS DESCRIPTION The specimen is received in formalin labeled, Biopsy Polyp at 20 cm, and consists of three leon irregular soft tissue fragments ranging from 0.2 x 0.2 x 0.1 cm to 0.8 x 0.2 x 0.1 cm, which are submitted entirely in one cassette. Signed (signature on file) Kimmy Valentino MD 0945 END OF REPORT * ML=Testing performed at Main Lab DEPARTMENT OF PATHOLOGY, [facility] [address] [place], [place] [address] Judd Arechiga M.D. Director [facility] # [id number] 45 RUN DATE: 06/20/14 [facility] LAB LIVE PAGE 1 RUN TIME: [address] [facility] [place], [place] [address] Specimen Inquiry Name: FATEMEH LOFTON : [address]: David Brown MD Acct: [id number] Unit: [id number] AGE: 53 Location: ENDO Re06/19/14 SEX: F Status: REG REF SPEC: [id number] DENNYS: 06/19/14-[address] [facility] [address]: David Brown MD REQ: [id number] RECD: 06/19/14 STATUS: HUBERT NIEVES DR: Yue Stock DO _ SOURCE: GAS ANTRUM SPDESC: ORDERED: Clotest Procedure Result Verified Site Clotest Final 06/20/14- 827 ML Clotest Negative END OF REPORT * ML=Testing performed at Main Lab DEPARTMENT OF PATHOLOGY, [address] [place] [address] Judd Arechiga M.D. Director [facility] # [id number] 46 Because ethnic data is not always readily available, this report includes an eGFR for both -Americans and non- Americans. The National Kidney Disease Education Program (NKDEP) does not endorse the use of the MDRD equation for patients that are not between the ages of 18 and 70, are , have extremes of body size, muscle mass, or nutritional status, or are non- or non-. According to the National Kidney Foundation, irrespective of diagnosis, the stage of the disease is based on the level of kidney function: Stage Description GFR(mL/min/1.73 m(2)) 1 Kidney damage with normal or decreased GFR 90 2 Kidney damage with mild decrease in GFR 60-89 3 Moderate decrease in GFR 30-59 4 Severe decrease in GFR 15-29 5 Kidney failure <15 (or dialysis) 47 Desirable <150 Borderline high 150-199 High 200-499 Very High >500 48 Desirable <200 Borderline high 200-239 High >239 49 Low <40 Desirable: 40-60 High: >60 50 Desirable <100 Near Optimal 100-129 Borderline high 130-159 High 160-189 Very High >189 51 Normal Range 180 to 914 Indeterminate Range 145 to 180 Deficient Range <145 52 REFERENCE VALUE 25-HYDROXY D TOTAL (D2+D3) Optimum levels in the healthy population are 20-50, patients with bone disease may benefit from higher levels within this range. Test Performed by: [place] [address] Manganese Wheeler: Dakota Wolf M.D. 53 Acute inflammation: >10.00 54 It is recognized that currently available assays for the detection of antibodies to HIV-1 and/or HIV-2 may not detect all infected individuals. HIV antibodies may be undetectable in some stages of the infection and in some clinical conditions. The performance of this assay has not been established for populations of infants or children. Assayed by Chemiluminescence Microparticle Immunoassay on the Siemens Advia Centaur CP. Values obtained with different methods or kits cannot be used interchangeably.The diagnostic specificity of the ADVIA Centaur 1/O/2 Enhanced assay in the low risk population was 99.90% (6052/6058) with a 95% confidence interval of 99.78 to 99.96%. 55 Results with Index Values of <18.00 are negative. Test Performed by: [place] [address] Manganese Wheeler: Dakota Wolf M.D. 56 Results with Index Values of <8.95 are negative. Test Performed by: [place] [address] Manganese Wheeler: Dakota Wolf M.D. 57 Results with Index Values of <36.00 are negative. Test Performed by: [place] [id number] Manganese Wheeler: Dakota Wolf M.D. Procedures Date CPT Code Description Status Comment 06/28/2017 Mammogram Completed 2018: benign; 03/2015:benign ultrasound; 12/2014:abnormal 06/20/2017 34668 Remove Impact Cerumen Completed Irrigation/Lavage Unilateral 04/18/2017 88893 Brief Emotional/Behav Assessment Completed W/ Scoring Doc Per Standard Inst 04/02/2017 54432 Brief Emotional/Behav Assessment Completed W/ Scoring Doc Per Standard Inst 01/26/2017 54099 Omt 3 To 4 Body Regions Involved Completed 11/03/2016 64606 Omt 3 To 4 Body Regions Involved Completed 09/18/2016 76903 Omt 7-8 Body Regions Completed 07/04/2016 22945 Omt 7-8 Body Regions Completed 04/06/2016 12221 Omt 7-8 Body Regions Completed 04/06/2016 49807 Inject/Drain Joint/Bursa Major Completed 01/24/2016 38587 Omt 7-8 Body Regions Completed 01/24/2016 84966 Electrocardiogram Complete Completed 12/14/2015 16274 Omt 3 To 4 Body Regions Involved Completed 12/14/2015 95852 Inject/Drain Joint/Bursa Small Completed 10/13/2015 29902 Osteopathic Manipulative Completed Treatment 1 Or 2 Body Region 03/15/2015 33149 SC/Im Injections Completed 03/15/2015 34532 Inj Tendon/Ligament/Cyst Completed 02/11/2015 01826 SC/Im Injections Completed 02/11/2015 15534 Inject/Drain Joint/Bursa Small Completed 11/10/2014 08608 X-Ray Foot Three Views Completed 05/27/2014 78002 Spirometry Completed Encounters Type Date Location Provider CPT E/M Dx Office Visit 08/27/2017 9:40a Main Office Yoel Barbour 52496 H02.825 I10 K29.50 Z00.01 N60.02 R10.9 G43.C0 Office Visit 06/27/2017 2:45p Main Office Yue Stock D.O. 73102 F41.9 E83.42 I10 G45.9 T50.905A Office Visit 06/20/2017 2:45p Main Office Yue Stock D.O. 40288 Z12.31 H61.22 G43.109 F41.9 G45.9 J44.1 E83.42 Office Visit 04/18/2017 3:30p Main Office Yue Stock D.O. 89672 G43.109 F41.9 G45.9 J44.1 E83.42 I10 Z13.89 Office Visit 04/02/2017 8:30a Main Office Yue Stock D.O. 08334 E04.1 J44.1 G43.109 F41.9 G45.9 E83.42 I10 J02.9 F17.201 I27.20 G31.84 Office Visit 02/22/2017 1:20p Main Office Yoel Barbour 58125 J44.1 J01.90 Office Visit 01/26/2017 1:15p Main Office Yue Stock D.O. 29051 E55.9 R22.32 G44.201 F41.9 M25.522 M99.00 M99.01 M99.02 M99.08 Z23 Office Visit 11/03/2016 1:15p Main Office Yue Stock D.O. 04374 G44.201 M99.00 M99.08 M99.02 M99.01 Z73.6 F41.9 Office Visit 09/18/2016 1:30p Main Office Yue Stock D.O. 63132 G44.201 M99.03 M99.05 M99.04 M99.01 M99.02 M99.08 M99.00 Office Visit 08/15/2016 4:30p Main Office Yue Stock D.O. 39253 H00.015 G44.201 G43.109 Office Visit 07/04/2016 4:30p Main Office Yue Stock D.O. 95480 H00.015 G44.201 G43.109 J20.9 M99.05 M99.03 M99.04 M99.01 M99.02 M99.08 M99.00 Office Visit 05/22/2016 4:30p Main Office Yue Stock D.O. 23739 G44.201 G47.33 G43.109 E66.01 Z68.36 Z23 Office Visit 04/06/2016 11:30a Main Office Yue Stock D.O. 54117 J20.9 G44.201 M99.05 M99.03 M99.04 M99.01 M99.02 M99.08 M99.00 M25.551 M25.552 Office Visit 01/24/2016 11:30a Main Office Yue Stock D.O. 21247 R03.0 Z68.33 G47.33 G44.201 M99.05 M99.03 M99.04 M99.01 M99.02 M99.08 M99.00 J44.9 Office Visit 12/14/2015 10:00a Main Office Yue Stock D.O. 71763 M79.674 G44.201 M99.00 M99.01 M99.02 M99.08 Office Visit 10/13/2015 9:30a Main Office Yue Stock D.O. 82205 F41.9 G44.201 G43.109 J44.9 M99.00 M99.01 Office Visit 08/13/2015 10:00a Main Office Yue Stock D.O. 09279 F41.9 E83.42 G43.109 R41.3 Office Visit 06/14/2015 11:00a Main Office Yue Stock D.O. 56489 K46.9 E83.42 J44.9 F41.9 G43.109 Office Visit 04/13/2015 9:45a Main Office Yue Stock D.O. 96885 F41.9 E83.42 M79.671 M76.71 G56.02 G43.109 J44.9 K21.9 M54.5 G47.33 E55.9 Office Visit 03/15/2015 9:30a Main Office Yue Stock D.O. 71697 M79.671 M76.71 F41.9 Z23 Z41.8 Office Visit 02/11/2015 8:45a Main Office Yue Stock D.O. 64214 F41.9 M72.2 M25.571 G56.02 M18.12 Office Visit 01/11/2015 9:15a Main Office Yue Stock D.O. 63433 M72.2 F41.9 F51.8 G47.33 G43.109 F17.211 J44.9 K21.9 M54.5 Z12.31 Office Visit 12/10/2014 1:30p Main Office Yue Stock D.O. 09345 728.71 719.47 300.00 307.49 327.23 346.00 305.1 496 530.81 724.2 Office Visit 11/10/2014 8:30a Main Office Yue Stock D.O. 86667 719.47 300.00 728.71 719.47 728.71 307.49 327.23 346.00 305.1 496 530.81 724.2 Office Visit 09/07/2014 9:45a Main Office Yue Stock D.O. 92862 300.00 728.71 307.49 327.23 346.00 305.1 496 530.81 724.2 794.19 Office Visit 08/07/2014 8:55a Main Office Yue Stock D.O. 03332 307.81 307.49 356.8 300.00 496 305.1 268.9 346.00 530.81 724.2 Office Visit 07/07/2014 8:30a Main Office Yue Stock D.O. 23570 307.49 356.8 300.00 496 305.1 268.9 346.00 530.81 724.2 Office Visit 06/29/2014 4:30p Main Office Yue Stock D.O. 25765 527.5 784.2 Office Visit 06/09/2014 11:00a Main Office Yue Stock D.O. 11057 496 305.1 307.49 356.8 Office Visit 05/27/2014 2:30p Main Office Yue Stock D.O. 03869 496 305.1 729.1 346.00 268.9 Office Visit 05/20/2014 2:00p Main Office Yue Stock D.O. 77694 530.81 496 346.00 724.2 V72.62 356.8 Plan of Care Future Appointment(s):08/29/2018 2:00 pm - Yoel Barbour at Main Ajyuap75 1:00 pm - Yoel Barbour at Main Grfwtz9308/28/2017 4:00 pm - Yue Stock D.O. at Main Iinzry8408/27/2017 - Yoel BarbourH02.825 Cysts of left lower eyelidReferral:Harvey Mendoza MD, [id number] Essential (primary) hypertensionComments:pt advised to report cp, change in angina , sob Comply with diet and exercise. Lose weight and watch salt in diet.No medications at this time, will watch as last several BP have been fine.K29.50 Unspecified chronic gastritis without bleedingNew Medication: Omeprazole 20 mgFollow up:f/u 3 weeks stop iiywbacclvV80.01 Encounter for general adult medical exam w abnormal dgqmeppqN20.02 Solitary cyst of left breastComments:pt has mammograms q 6 months , standing order in fjhjxM94.9 Unspecified abdominal painNew Xrays:ultrasound abdomen, limitedComments:upper to slightly right GI painFollow up:Call or go to ER if pain is bygzgoM19.C0 Periodic headache syndromes in chld/adlt, not intractableFollow up:as discussed try reducing the dose of the tylenol/ibuprofen and see if after a while HAs improve or decrease in freq
--- OUTSIDE RECORDS SUMMARY | 2017-09-25 17:01 | XMS REPORT ---
:1960 External Reference #:[id number] Author Organization [facility] Address [address] [place] [address] Phone [phone] Care Team Providers Name Role Phone Mickey George D.O. Care Team Information Leader Writer Unavailable Mickey George D.O. Primary Care Physician Unavailable Payers Type Date Identification Numbers Payment Provider Subscriber Health Maintenance Policy Number: [facility] Jose Pollock Organization (HMO) [id number] Rolly PayID: [id number] [address] [place] [id number] Problems Description No Information Family History Date Family Member(s) Problem(s) Comments Father Cancer Social History Type Date Description Comments Marital Status Single Cigarette Use Used To Smoke Cigarettes But Quit. ETOH Use Never used alcohol Recreational Drug Use Never Used Drugs Allergies, Adverse Reactions, Alerts Date Description Reaction Status Severity Comments 07/30/2014 NKDA active Medications Medication Date Status Form Strength Qnty SIG Indications Ordering Provider Ventolin HFA 06/09/ Active Aerosol 108(90Bas 1unit inhale 2 Ariel 2014 e) s puffs by Mickey, mcg/Act mouth every 4 D.O. hours as needed for bronchospasm Advair HFA 06/09/ Active Aerosol 115-21mcg 1unit 1-2 puffs Ariel 2014 /Act s twice a day Mickey, rinse mouth D.O. after use Gabapentin 06/09/ Active Capsules 100mg 120ca 1 tabs by Ariel 2014 ps mouth four Mickey, times a day D.O. for pain in feet Chantix 05/27/ Active Tablets 1mg 1tabs # 1 Ariel, Continuing 2014 continuing Mickey, Month Feliciano pack D.O. Spiriva 05/27/ Active Capsules 18mcg 90cap inhale the Ariel Handihalesaman 2014 s contents of 1 Mickey, capsule daily D.O. Sumatriptan 05/27/ Active Tablets 50mg 9tabs 1 by mouth at [place], Succinate 2014 onset of Mickey, migraine; august D.O. repeat once after 2 hours if needed; max 3x/wk Vitamin D3 05/27/ Active Capsules 5000Unit 90cap take one [place], 2014 s capsule by Mickey, mouth every D.O. day or 7 tablets once a week Albuterol 05/27/ Active Nebulizer 1.25mg/3M 75ml 3ml as [place], Sulfate 2014 L directed up Mickey, to 4 times a D.O. day Omeprazole 05/20/ Active Capsules DR 40mg 30cap 1 by mouth [place], 2014 s every day Mickey, D.O. Vital Signs Date Vital Result Comment 08/27/2017 Weight 178.00 lb Height 62 inches 5'2" BMI (Body Mass Index) 32.6 kg/m2 BP Systolic 150 mmHg BP Diastolic 75 mmHg Heart Rate 64 /min O2 % BldC Oximetry 96 % Body Temperature 97.9 F Pain Level 0 05/22/2017 Weight 184.50 lb Height 62 inches 5'2" BMI (Body Mass Index) 33.7 kg/m2 BP Systolic 105 mmHg BP Diastolic 67 mmHg Heart Rate 63 /min O2 % BldC Oximetry 96 % Body Temperature 97.6 F Pain Level 0 12/17/2014 Weight 201.00 lb Height 62 inches 5'2" BMI (Body Mass Index) 36.8 kg/m2 BP Systolic 112 mmHg BP Diastolic 62 mmHg Heart Rate 84 /min O2 % BldC Oximetry 94 % Body Temperature 98.1 F Sandy Score 13 09/07/2014 Weight 201.00 lb Height 62 inches 5'2" BMI (Body Mass Index) 36.8 kg/m2 BP Systolic 154 mmHg BP Diastolic 88 mmHg Heart Rate 95 /min O2 % BldC Oximetry 96 % Body Temperature 98.7 F 07/30/2014 Weight 195.00 lb Height 62 inches 5'2" BMI (Body Mass Index) 35.7 kg/m2 BP Systolic 122 mmHg BP Diastolic 72 mmHg Heart Rate 77 /min O2 % BldC Oximetry 97 % Body Temperature 97.4 F Sandy Score 5 Neck Circumference in inches 14.75 Results Test Date Test Result H/L Range Note Laboratory test finding 05/14/2017 Cytology Non-Vascular Ultrasound Technician SEE RESULT BELOW 1 , 2 1 [id number] 2 SEE RESULT BELOW Name: JOSE LOFTON : [address]: Joseph Lebron MD Acct: [id number] Unit: [id number] AGE: 56 Location: [facility] Re05/14/17 SEX: F Status: REG REF SPEC: [id number] DENNYS: 05/14/17-[address]: Joseph Lebron MD REQ: [id number] RECD: 05/16/17 STATUS: SOUT _ ORDERED: FNA INTERP RPT/2 COMMENTS: [id number] FINAL DIAGNOSIS 1) Thyroid, right, fine needle aspiration: Benign thyroid nodule- involutional type ([place] class II). 2) Left neck lymph node, fine needle aspiration: Benign-appearing lymphoid tissue; see comment. Comment: 1) The specimen demonstrates abundant watery proteinaceous fluid, a moderate amount of benign appearing follicular epithelium arranged in uniform sheets, medium sized follicles and only occasional small groups. Abundant pigmented and non-pigmented macrophages are seen in the background. No features of papillary carcinoma are seen. In this clinical setting the risk of malignancy is less than 3%. Clinical management of this thyroid nodule should be based on clinical and radiographic features as well as the above findings. 2) If a low grade lymphoproliferative disorder is a clinical consideration, sampling for flow cytometry may be helpful to exclude. #1. THYROID RIGHT - RIGHT THYROID FINE NEEDLE ASPIRATION, #2. NECK LEFT - LEFT NECK NODE FINE NEEDLE ASPIRATION CONTINUED ON NEXT PAGE * ML=Testing performed at Main Lab DEPARTMENT OF PATHOLOGY, [address] [place] [address] Judd Arechiga M.D. Director [facility] # [id number] RUN DATE: 05/17/17 [facility] LAB LIVE PAGE 2 Patient: JOSE LOFTON [id number] (Continued) CLINICAL HISTORY (Continued) CLINICAL HISTORY #1) Right thyroid nodule. #2) Left neck node. GROSS DESCRIPTION #1) 1 Alcohol fixed slide(s) received from clinician, 4 Air dried slide(s)( stained) and Needle rinse in CytoLyt solution for thin layer non-urogynecology physician test.(clear) #2) 1Alcohol fixed slide(s) received from clinician, 5 Air dried slide(s)( stained) and Needle rinse in CytoLyt solution for thin layer non-urogynecology physician test.(clear) Signed (signature on file) Kimmy Valentino MD [id number] END OF REPORT * ML=Testing performed at Main Lab DEPARTMENT OF PATHOLOGY, [address] [place] [address] Judd Arechiga M.D. Director [facility] # [id number] Procedures Date CPT Code Description Status 05/14/2017 41417 Ultrasonic Guide Needle Biopsy Completed 05/14/2017 77107 Fna W/Image Completed 05/14/2017 28549 Fna W/Image Completed 09/25/2014 44306 Sleep Stage 4 Or More Cpap Titra Completed 08/21/2014 89965 Sleep Staging 4Or More Para Completed 07/30/2014 40887 Fiberoptic Laryngoscopy,Diag. Completed Encounters Type Date Location Provider CPT E/M Dx Office Visit 05/22/2017 1:15p Main Office Joseph Lebron M.D. 17818 G47.33 E04.1 Office Visit 04/19/2017 9:15a Main Office Joseph Lebron M.D. 71733 G47.33 R59.0 E04.1 Office Visit 12/17/2014 1:15p Main Office Joseph Lebron M.D. 40688 327.23 786.09 478.0 780.50 Office Visit 09/07/2014 11:00a Main Office Stefanie Mén[place] [address] 327.23 Office Visit 07/30/2014 10:00a Main Office Stefanie Mén[place] [address] 786.09 478.0 780.50 Plan of Care 07/30/2014 - Stefanie Méndez NP786.09 Dyspnea & Respiratory Abnormalities Fvsdd302.0 Hypertrophy Nasal Uunptchxrb934.50 Sleep Disturbance UnspecNew Orders :PSG - Sleep Study
[2017-09-25] MEDS ORDERED: Haloperidol INJ IV/IM* 5 MG/ML AMP ONE (17:16)
[2017-09-25] MEDS ORDERED: diPHENhydraMINE IV* 50 MG/ML 1 ml VIAL (BENADRYL) ONE (17:16)
[2017-09-25] MEDS ORDERED: LORazepam INJ* 2 MG/ML 1 ML VIAL ONE ×2 (17:16→18:05)
[2017-09-25] MEDS ORDERED: LORazepam INJ* 2 MG/ML 1 ML VIAL IV PUSH ONE (18:09)
[2017-09-25 18:11] LABS: Urine Appearance Clear; Urine Blood Negative (Negative); Urine Color Yellow; Urine Ketones Negative (Negative); Urine Protein Negative (Negative); Urine Specific Gravity 1.009 (1.010-1.030); Urine Urobilinogen Negative (Negative)
--- NOTE | 2017-09-25 18:37 | RAD ---
HISTORY: Altered mental status COMPARISONS: March 13, 2017 TECHNIQUE: Multiple contiguous axial CT scans were obtained of the head without intravenous contrast. FINDINGS: HEMORRHAGE/INFARCT: There is no hemorrhage or acute infarct. MASSES/SHIFT: There is no mass or shift. EXTRA-AXIAL SPACES: There are no extra-axial fluid collections. SULCI AND VENTRICLES: The sulci and ventricles are normal in size and position for the patient's stated age. CEREBRUM: There are no focal parenchymal abnormalities. BRAINSTEM: There are no focal parenchymal abnormalities. CEREBELLUM: There are no focal parenchymal abnormalities. VESSELS: The vessels are grossly normal. PARANASAL SINUSES: The paranasal sinuses are clear. ORBITS: The orbits are unremarkable. BONES AND SOFT TISSUE: No bone or soft tissue abnormalities are noted. OTHER: None IMPRESSION: NO ACUTE INTRACRANIAL PATHOLOGY.
--- NOTE | 2017-09-25 18:49 | RAD ---
HISTORY: Altered mental status COMPARISONS: March 13, 2017 VIEWS: 1: frontal portable view of the chest at 6:15 PM FINDINGS: LINES AND TUBES: None. CARDIOMEDIASTINAL SILHOUETTE: The cardiomediastinal silhouette is stable. PLEURA: The costophrenic angles are sharp. No pleural abnormalities are noted. LUNG PARENCHYMA: The lungs are clear. ABDOMEN: The upper abdomen is clear. There is no subphrenic gas. BONES AND SOFT TISSUES: No bone or soft tissue abnormalities are noted. IMPRESSION: NO ACTIVE CARDIOPULMONARY DISEASE.
[2017-09-25 19:12] LABS: ABS Basophils 0.1 10^3/ul (0-0.2); ABS Eosinophils 0.5 10^3/ul (0-0.6); ABS Lymphocytes 1.9 10^3/ul (1.0-4.8); ABS Monocytes 0.5 10^3/ul (0-0.8); ABS Neutrophils 3.6 10^3/ul (1.5-7.7); ABS Nucleated RBC 0 10^3/ul; Eosinophil % 8.2 % (0-6); Hematocrit 41 % (35-47); Hemoglobin 13.2 g/dl (12.0-16.0); Lymphocyte % 28.2 % (25-47); Mean Corpuscular HGB Conc 32 g/dl (31-36); Mean Corpuscular Hemoglobin 31 pg (27-31); Mean Corpuscular Volume 97 fL (80-97); Mean Platelet Volume 9.3 um3 (7.4-10.4); Nucleated Red Blood Cells % 0.1; Platelet Count 256 10^3/ul (150-450); Red Cell Distribution Width 13 % (10.5-15); White Blood Count 6.6 10^3/ul (3.5-10.8)
[2017-09-25 19:38] LABS: EGFR Non-African American 72.4 (>60)
[2017-09-25] MEDS ORDERED: Ondansetron INJ* 2 MG/ML VIAL IV PRN (20:32)
[2017-09-25] MEDS ORDERED: busPIRone TAB* 15 MG PO SCH (21:00)
--- NOTE | 2017-09-25 21:19 | RAD ---
HISTORY: Fall, found down COMPARISONS: None TECHNIQUE: Multiple contiguous axial CT scans were obtained of the cervical spine without intravenous contrast, with coronal and sagittal multiplanar reformations. FINDINGS: BRAIN: The visualized brain is unremarkable CENTRAL CANAL: Evaluation of the central canal is limited on CT technique; however, there is no obvious canalicular mass or epidural hemorrhage. ALIGNMENT: There is straightening of the cervical lordosis. VERTEBRAL BODIES: There is a fusion segmentation anomaly of the occipital condyles and C1. There is an incomplete posterior arch of C1. There is no acute displaced fracture. There is multilevel anterolateral marginal osteophyte formation. JOINTS: There is uncovertebral and facet osteoarthritis. MUSCULATURE: Unremarkable INTERVERTEBRAL DISCS: There is diffuse loss of intervertebral disc height. AXIAL IMAGES: C2-C3: There is right greater than left facet hypertrophy. There is moderate right neural foraminal narrowing. There is no osseous central canal stenosis. C3-C4: There is left greater than right uncovertebral facet hypertrophy. There is severe left neural foraminal narrowing. There is no osseous central canal stenosis. C4-C5: There is bilateral vertebral hypertrophy. There is moderate to severe right neural foraminal narrowing. There is no osseous central canal stenosis. C5-C6: There is ossification of the posterior longitudinal ligament. There is bilateral uncovertebral hypertrophy. There is mild narrowing of the central canal. There is no significant neural foraminal narrowing. C6-C7: There is ossification of the posterior longitudinal ligament. There is bilateral uncovertebral hypertrophy. There is mild narrowing of the central canal. There is no significant neural foraminal narrowing. C7-T1: There is no osseous neural foraminal narrowing or central canal stenosis. SOFT TISSUES: There is a 1.1 cm nodule of the right lobe of the thyroid. OTHER: None. IMPRESSION: 1. 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 2. DEGENERATIVE DISC DISEASE AND OSTEOARTHRITIS. 3. THERE IS MILD NARROWING OF THE CENTRAL CANAL AT C5-C6 AND C6-C7. THERE IS MULTILEVEL NEURAL FORAMINAL NARROWING DESCRIBED ABOVE. 4. 1.1 CM NODULE OF THE RIGHT THYROID. 5. NO ACUTE OSSEOUS INJURY TO THE CERVICAL SPINE.
[2017-09-25] MEDS: Pantoprazole IV* 40 MG IV SCH (22:44)
[2017-09-25] MEDS: Heparin VIAL(*) 5000 UNITS/ML VIAL (FIVE THOUSAND) SUBCUT SCH (22:47)
[2017-09-25] MEDS: NS 0.9% 1000 ML* 1,000 ML IV SCH (22:47)
--- NOTE | 2017-09-26 03:35 | HP ---
CC: Dr. George * HISTORY AND PHYSICAL: DATE OF ADMISSION: 09/25/17 PRIMARY CARE PROVIDER: Dr. George. ATTENDING PHYSICIAN WHILE IN THE HOSPITAL: Celio Berman MD* (report dictated by Gee Clayton NP) CHIEF COMPLAINT: Altered mental status. HISTORY OF PRESENT ILLNESS: I would like to preface the report by saying the patient really cannot give much medical history at this point. Most of the H and P is obtained from discussion with the patient's partner, Jovon, her boyfriend of 18 years. According to Jovon, the patient is a 57-year-old female patient. She has a history of vitamin D deficiency, neuropathy, migraine, COPD , GERD, anxiety. here is a history of possible dementia. She is taking Aricept. She saw a neurologist at one point for this diagnosis. I am going to try to get those records if possible. She has a history of hyperlipidemia and a history of hypertension as well. According to the patient's partner, he picked up medications for her about 4 days ago. He believes it was diazepam, but he is not sure of this. He says that ever since then, he has noticed that she has been having difficulty, acting confused, acting like she drank too much, is acting inebriated, feeling weak in the leg. She is just not acting herself. She has been pretty agitated at times. There were no reports of drug usage and no reports of alcohol usage. He was concerned today because it just was not getting any better. He states that she does take a lot of different medications. He is really unsure which one she is actually taking. She had an episode today where she fell, did strike her head and was just more unresponsive , more confused, not acting herself. He called 911 immediately; he turned her over to her side. They came into the ED. When she got here, she was very combative, she was belligerent according to the notes. She required one-to-one observation. She required sedative agents. She also required restraints because she was combative to herself and staff. To the boyfriend's knowledge, there is no foul play. He says to his knowledge, she was not expressing suicidal thoughts. She was not expressing worsening depression. To his knowledge, she has just been taking her meds as prescribed, but just over the last few days she has been more and more confused and more weak. There have been no reports of fever. She had not been complaining of headache or neck pain. No vomiting or diarrhea in the last several days. There have been no reports of trouble with urinating. No complaints of chest pain, shortness of breath, or abdominal pain. He came into the ED today because of her altered mental status. We were asked to evaluate for admission. PAST MEDICAL HISTORY: According to the is significant for: 1. Vitamin D deficiency. 2. Peripheral neuropathy. 3. COPD. 4. Migraines. 5. GERD. 6. Anxiety. 7. Question of dementia. 8. History of TIA. 9. Hyperlipidemia. 10. Hypertension. 11. Reports a history of mild cognitive impairment. PAST SURGICAL HISTORY: Significant for: 1. Hernia repair. 2. . 3. Eye surgery. 4. Carpal tunnel. HOME MEDICATIONS: Include: 1. Meloxicam 7.5 mg p.o. daily. 2. Prilosec 20 mg daily. 3. Gabapentin 400 mg p.o. t.i.d. 4. Fioricet 1 to 2 tablets every 4 hours as needed. 5. EpiPen 0.1 mg IM once as needed for allergic reaction. 6. Valium 5 mg p.o. b.i.d. as needed. 7. Zoloft 75 mg daily. 8. Xanax 150 mg p.o. b.i.d. 9. Incruse Ellipta 62.5 mcg inhale daily. 10. BuSpar 15 mg p.o. b.i.d. 11. Chantix 1 mg p.o. b.i.d. 12. Aricept 10 mg daily. 13. Lipitor 40 mg daily. 14. Propranolol 60 mg daily. ALLERGIES TO MEDICATIONS: Include none, but she is allergic to BEE VENOM. FAMILY HISTORY: Mother had a history of [place]. Father had a history of melanoma. SOCIAL HISTORY: She is a former smoker. She quit 6 months to a year ago. She has no reports of alcoholism. There are no reports of drug use. Her surrogate decision maker is the patient's partner, Jovon. REVIEW OF SYSTEMS: Unable to be obtained directly from the patient given her altered mental status, but I am able to talk to the patient's significant other. There have been no reports of fevers, chills, vomiting, or diarrhea. No reports of chest pain and no reports of loss of consciousness today. There have been reports of generalized weakness, but again no abdominal pain or vomiting or diarrhea. Review of 14 systems attempted, but again unable to be obtained directly from the patient given her underlying mental status. PHYSICAL EXAMINATION GENERAL: At this time, Ms. Lofton is a 57-year-old female patient. She is sitting in the ED stretcher. She does not appear to be in any acute distress. VITAL SIGNS: Blood pressure 147/85, pulse 56, respirations were 19, O2 sat 98% , temperature was unable to be recorded, but we are going to try to get a temperature. HEENT: Head is atraumatic and normocephalic. Eyes: EOMs are intact. Her sclerae were anicteric and not pale. Throat: Oral mucosa appears to be moist. No oropharyngeal erythema. NECK: Supple. LUNGS: Clear to auscultation bilaterally. No wheezes, rales, or rhonchi. HEART: Sounds S1, S2. Regular rate and rhythm. No murmurs, rubs, or gallops. ABDOMEN: Soft. It was flat, it was nontender. Bowel sounds were present. EXTREMITIES: Pulses were 2+ throughout. She is moving all 4 extremities. NEUROLOGICAL: She will awaken to speech. She will say her name and place. She is confused to time. She will follow simple commands at this point. Her Rosalina Coma Scale at this point is 13. She had no gross obvious focal deficits , but she definitely is drowsy, but again will awaken to name and will follow simple commands, though she is only confused to place. She knows it is May and she knows her name. Her speech again does appear to be clear. SKIN: Grossly intact. LABORATORY DATA/DIAGNOSTIC STUDIES: WBC of 6.6, RBC of 4.20, hemoglobin of 13.2, hematocrit of 41, her platelet count was 256,000. Her sodium was 142, potassium 3.8, chloride 107, bicarb 28, BUN 11, creatinine 0.82, glucose 94, calcium 9. Total bili 0.2, AST 15, ALT 13, alk phos 88. Troponin 0. CRP is 107. Her TSH is 3.45. Urine was obtained, it was negative. Toxicology was positive for barbiturates, in addition there is benzodiazepine. She did have a brain CT obtained today, which did show no acute intracranial pathology. She had a chest x-ray obtained today which showed no active cardiopulmonary disease. Old medical records were reviewed. She recently, in February, was worked up for TIA. She had followup stress test, which was read as normal per cardiology note. Old medical records were reviewed. ASSESSMENT AND PLAN: Mrs. Lofton is a 57-year-old female patient coming into the ED today with complaints of altered mental status. She will be admitted under observation status for: 1. Altered mental status. Again, at this point, I suspect this is probably related to polypharmacy. The patient is on several medications that can cause SOCIAL WORK SPECIALIST depression. Question is whether or not this is intentional or not, it is unclear at this point. I did ask the to bring in the medication bottle , so we could count the pills and see if she had taken too much of medications possibly. He says he will try to do this. I also would like to get the neurology notes from her PCP. Check an ABG as well. I have ordered neuro checks every 2 hours. If he does not clear by tomorrow, then I would consider getting Neurology input. CT brain was negative. Because of the fall, I am going to check CT neck, but she had no complaints of pain in the neck at this point and she was moving the neck, complete full range of motion and had full range of motion of her extremities. I will also get neuro checks frequently, hold off on her psychotropic medications and continue to follow. 2. Vitamin D deficiency. Follow with primary. 3. History of neuropathy. Again, I am holding on her gabapentin. When she is more alert, I will certainly get her back on the meds. 4. History of migraines. May cut back on her butalbital, but she is asymptomatic at this point. 5. Chronic obstructive pulmonary disease. Continue her nebs as prescribed. 6. Gastroesophageal reflux disease. I have ordered IV PPI. 7. Anxiety. Continue supportive care. 8. Question of dementia and mild cognitive impairment. Again I would like to get her outpatient Neurology. 9. History of transient ischemic attack. Question is that she is not on an aspirin at this point. I do not see it on her home list. We may need to consider adding this. At this point, she is n.p.o. We can consider when she is more awake and once we get neurology notes, we could consider adding this medication back on. 10. DVT prophylaxis. I will go ahead and place her on heparin subcu. 11. Code status, full code. 12. Fluids, electrolytes, and nutrition. N.p.o. pending again when she becomes more awake, then I would certainly give her a regular heart healthy diet. TIME SPENT: Time spent on the admission was 60 minutes; greater than half the time was spent [id number] with the patient obtaining my history and physical, other half time was spent going over the plan of care with the patient and implementing plan of care. I did discuss the plan of care with my attending physician, Dr. Berman, he is in agreement. [facility] [place], HOME [id number]/CPS #: [id number] [email or web address]
[2017-09-26] MEDS: Heparin VIAL(*) 5000 UNITS/ML VIAL (FIVE THOUSAND) SUBCUT SCH ×3 (05:33→21:36)
[2017-09-26 07:05] LABS: ABS Basophils 0.1 10^3/ul (0-0.2); ABS Eosinophils 0.5 10^3/ul (0-0.6); ABS Lymphocytes 1.8 10^3/ul (1.0-4.8); ABS Monocytes 0.5 10^3/ul (0-0.8); ABS Neutrophils 2.8 10^3/ul (1.5-7.7); ABS Nucleated RBC 0 10^3/ul; Eosinophil % 9.2 % (0-6); Hematocrit 39 % (35-47); Hemoglobin 13.1 g/dl (12.0-16.0); Lymphocyte % 31.4 % (25-47); Mean Corpuscular HGB Conc 34 g/dl (31-36); Mean Corpuscular Hemoglobin 32 pg (27-31); Mean Corpuscular Volume 96 fL (80-97); Mean Platelet Volume 9.3 um3 (7.4-10.4); Nucleated Red Blood Cells % 0.1; Platelet Count 266 10^3/ul (150-450); Red Blood Count 4.07 10^6/ul (4.0-5.4); Red Cell Distribution Width 13 % (10.5-15); White Blood Count 5.8 10^3/ul (3.5-10.8)
[2017-09-26 07:14] LABS: INR 0.92 (0.77-1.02)
[2017-09-26 07:23] LABS: EGFR Non-African American 61.8 (>60)
[2017-09-26] MEDS: Umeclidin 62.5 MDI(NF) 1 INH MDI INH SCH (08:33)
--- NOTE | 2017-09-26 08:47 | PN ---
Subjective Date of Service: 09/26/17 Interval History: Patient seen and examined at bedside. Denies fever, chills, shortness of breath , chest discomfort, N/V/D. Pt states that she took too many anxiety and headache medications, she reports taking 3 or 4 more then she should. She would like to go home. Tele: Sinus selin to sinus rhythm, rate 50-60's Family History: Unchanged from Admission Social History: Unchanged from Admission Past Medical History: Unchanged from Admission Objective Active Medications: Acetaminophen (Tylenol Tab*) 650 mg PO Q4H PRN Reason: FEVER/PAIN Atorvastatin Calcium (Lipitor*) 40 mg PO DAILY [facility] Heparin Sodium (Porcine) (Heparin Vial(*)) 5,000 units SUBCUT Q8HR [facility] Sodium Chloride (Ns 0.9% 1000 Ml*) 1,000 mls @ 100 mls/hr IV Q10H [facility] Stop: 09/26/17 16:44 Ondansetron HCl (Zofran Inj*) 4 mg IV Q6H PRN Reason: NAUSEA Pantoprazole Sodium (Protonix Iv*) 40 mg IV Q24H [facility] Propranolol HCl (Inderal Tab*) 60 mg PO DAILY [facility] Umeclidinium [place] (Incruse Ellipta Mdi (Nf)) 1 inh INH DAILY [facility] Vital Signs - 8 hr 09/26/17 09/26/17 09/26/17 02:47 03:23 07:44 Temperature 97.3 F 97.3 F Pulse Rate 58 61 Respiratory 20 17 Rate Blood Pressure 140/75 159/85 (mmHg) O2 Sat by Pulse 99 98 93 Oximetry Oxygen Devices in Use Now: None Appearance: NAD, laying in bed Ears/Nose/Mouth/Throat: Mucous Membranes Moist Respiratory: Symmetrical Chest Expansion and Respiratory Effort, Clear to Auscultation Cardiovascular: NL Sounds; No Murmurs; No JVD, RRR Abdominal: NL Sounds; No Tenderness; No Distention Extremities: No Edema Skin: No Rash or Ulcers Neurological: NL Muscle Strength and Tone, - - Alert and Oriented to Person, Place and Month. Answered with the wrong year. Drowsy Lines/Tubes/Other Access: Clean, Dry and Intact Peripheral IV - site benign Nutrition: Taking PO's Result Diagrams: 09/26/17 06:46 09/26/17 06:46 Assess/Plan/Problems-Billing Assessment: Ms. Lofton is a 57 yo female with PMH significant for peripheral neuropathy, COPD, migraines, GERD, anxiety, TIA, HLD, HTN, mild cognitive impairment who presented to the emergency room with complaints of altered mental status. - Patient Problems (1) Altered mental status Code(s): R41.82 - ALTERED MENTAL STATUS, UNSPECIFIED SNOMED Code(s): 451515444 Comment: - Suspect secondary to polypharmacy - Brain CT negative - Will ask Psych to consult (2) Vitamin D deficiency Code(s): E55.9 - VITAMIN D DEFICIENCY, UNSPECIFIED SNOMED Code(s): 31406617 Comment: - Continue to follow with PCP (3) Neuropathy Code(s): G62.9 - POLYNEUROPATHY, UNSPECIFIED SNOMED Code(s): 791616377 Comment: - Resume gabapentin at decreased dose (4) Migraines Code(s): G43.909 - MIGRAINE, UNSP, NOT INTRACTABLE, WITHOUT STATUS MIGRAINOSUS SNOMED Code(s): 34825675 Comment: - No complaints of headache at this time - Continue butalbital (5) Anxiety Code(s): F41.9 - ANXIETY DISORDER, UNSPECIFIED SNOMED Code(s): 18253346 Comment: - Continue supportive care (6) COPD (chronic obstructive pulmonary disease) Code(s): J44.9 - CHRONIC OBSTRUCTIVE PULMONARY DISEASE, UNSPECIFIED SNOMED Code(s): 30971033 Comment: - No signs of acure exacerbation at this time - Quit smoking ~ 2016 - Continue home inhaled medications (7) GERD (gastroesophageal reflux disease) Code(s): K21.9 - GASTRO-ESOPHAGEAL REFLUX DISEASE WITHOUT ESOPHAGITIS SNOMED Code(s): 809606933 Comment: - Continue PPI (8) HTN (hypertension) Code(s): I10 - ESSENTIAL (PRIMARY) HYPERTENSION SNOMED Code(s): 46262711 Comment: - SBP 140-150's - Continue propranolol (9) TIA (transient ischemic attack) Comment: - History (10) Dementia Code(s): F03.90 - UNSPECIFIED DEMENTIA WITHOUT BEHAVIORAL DISTURBANCE SNOMED Code(s): 42184054 Comment: - Continue Aricept (11) DVT prophylaxis Code(s): BQX1174 - SNOMED Code(s): 473104000 Comment: - SQ heaparin (12) Full code status Code(s): Z78.9 - OTHER SPECIFIED HEALTH STATUS SNOMED Code(s): 313558632 Status and Disposition: OBV. Discharge to home when medically stable.
[2017-09-26] MEDS: NS 0.9% 1000 ML* 1,000 ML IV SCH (08:49)
[2017-09-26] MEDS: Propranolol TAB* 60 MG PO SCH ×3 (08:49→15:52)
[2017-09-26] MEDS: Atorvastatin* 40 MG TAB PO SCH ×2 (08:49→11:11)
--- NOTE | 2017-09-26 14:29 | PN ---
Hospitalist Progress Note Date of Service: 09/26/17 Patient is more awake this afternoon and requesting to go home. I discussed with her that we are concerned that she is taking more medications then she should be and that she could hurt her self. She states "I'm fine, I have him there with me" (pointing to her significant other in the room). Pt doesn't feel that she could or harm herself by taking her medications incorrectly. We discussed that her Zoloft and Buspar are gone 10 days prior to when she should have ran out. She also appears to have multiple providers prescribing some of the same medications. She reports taking Fioricet 4 tablets and 10 mg Valium prior to "passing out" yesterday. She reports taking 10 mg Valium about every 2 hours at home. Zoloft and Buspar filled on 09/06 and the bottles are empty today when her significant other brought them in. At this time I DO NOT feel that the patient has the capacity to leave against medical advice as she is unable to realize that she could or harm herself by misusing her medications. She will stay until she is seen in consultation by psych.
[2017-09-26] MEDS ORDERED: Butalb/Acetamin/Caff TAB* 1 TAB PO PRN (14:42)
[2017-09-26] MEDS: Acetaminophen TAB* 325 MG PO PRN ×2 (15:50→21:51)
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
[2017-09-26] MEDS ORDERED: Gabapentin CAP(*) 400 MG PO SCH (21:00)
[2017-09-26] MEDS: Pantoprazole IV* 40 MG IV SCH (21:34)
[2017-09-26] MEDS: Gabapentin CAP(*) 100 MG PO SCH (21:34)
[2017-09-27] MEDS: Heparin VIAL(*) 5000 UNITS/ML VIAL (FIVE THOUSAND) SUBCUT SCH (05:25)
[2017-09-27] MEDS: Umeclidin 62.5 MDI(NF) 1 INH MDI INH SCH (07:00)
[2017-09-27 07:53] VITALS: BP 125/81
[2017-09-27] MEDS: Atorvastatin* 40 MG TAB PO SCH (08:03)
[2017-09-27] MEDS: Gabapentin CAP(*) 100 MG PO SCH (08:03)
[2017-09-27] MEDS: Propranolol TAB* 60 MG PO SCH (08:19)
[2017-09-27] MEDS ORDERED: Omeprazole CAP* 20 MG PO SCH (09:00)
[2017-09-27] MEDS ORDERED: Donepezil TAB* 5 MG PO SCH (09:00)
--- NOTE | 2017-09-27 09:42 | PN ---
Subjective Date of Service: 09/27/17 Interval History: Patient seen and examined at bedside. Denies fever, chills, shortness of breath , chest discomfort, N/V/D. Pt states that she is feeling well today. Discussed with Pt the importance of taking her medications as directed and not adjusting them herself when she was not feeling well. Family History: Unchanged from Admission Social History: Unchanged from Admission Past Medical History: Unchanged from Admission Objective Active Medications: Acetaminophen (Tylenol Tab*) 650 mg PO Q4H PRN Reason: FEVER/PAIN Acetaminophen/Butalbital/Caffeine (Fioricet Tab*) 1 tab PO Q4H PRN Reason: HEADACHE Atorvastatin Calcium (Lipitor*) 40 mg PO DAILY [facility] Donepezil HCl (Aricept Tab*) 10 mg PO DAILY [facility] Gabapentin (Neurontin Cap(*)) 100 mg PO TID [facility] Heparin Sodium (Porcine) (Heparin Vial(*)) 5,000 units SUBCUT Q8HR [facility] Omeprazole (Prilosec Cap*) 20 mg PO QAM [facility] Ondansetron HCl (Zofran Inj*) 4 mg IV Q6H PRN Reason: NAUSEA Pantoprazole Sodium (Protonix Iv*) 40 mg IV Q24H [facility] Propranolol HCl (Inderal Tab*) 60 mg PO DAILY [facility] Umeclidinium [place] (Incruse Ellipta Mdi (Nf)) 1 inh INH DAILY [facility] Vital Signs - 8 hr 09/27/17 09/27/17 09/27/17 02:02 04:12 07:30 Temperature 97.2 F Pulse Rate 64 Respiratory 16 18 Rate Blood Pressure 147/71 (mmHg) O2 Sat by Pulse 97 96 Oximetry 09/27/17 09/27/17 07:44 08:03 Temperature 97.3 F Pulse Rate 78 Respiratory 20 16 Rate Blood Pressure 125/81 (mmHg) O2 Sat by Pulse 94 Oximetry Oxygen Devices in Use Now: None Appearance: NAD, laying in bed Ears/Nose/Mouth/Throat: Mucous Membranes Moist Respiratory: Symmetrical Chest Expansion and Respiratory Effort, Clear to Auscultation Cardiovascular: NL Sounds; No Murmurs; No JVD, RRR Abdominal: NL Sounds; No Tenderness; No Distention Extremities: No Edema Skin: No Rash or Ulcers Neurological: Alert and Oriented x 3, NL Muscle Strength and Tone Lines/Tubes/Other Access: Clean, Dry and Intact Peripheral IV - site benign Nutrition: Taking PO's Result Diagrams: 09/26/17 06:46 09/26/17 06:46 Assess/Plan/Problems-Billing Assessment: Ms. Lofton is a 57 yo female with PMH significant for peripheral neuropathy, COPD, migraines, GERD, anxiety, TIA, HLD, HTN, mild cognitive impairment who presented to the emergency room with complaints of altered mental status. - Patient Problems (1) Altered mental status Code(s): R41.82 - ALTERED MENTAL STATUS, UNSPECIFIED SNOMED Code(s): 417106506 Comment: - Resolved - Suspect secondary to polypharmacy - Brain CT negative - Psych consult, input appreciated (2) Vitamin D deficiency Code(s): E55.9 - VITAMIN D DEFICIENCY, UNSPECIFIED SNOMED Code(s): 90640569 Comment: - Continue to follow with PCP (3) Neuropathy Code(s): G62.9 - POLYNEUROPATHY, UNSPECIFIED SNOMED Code(s): 599813230 Comment: - Continue gabapentin (4) Migraines Code(s): G43.909 - MIGRAINE, UNSP, NOT INTRACTABLE, WITHOUT STATUS MIGRAINOSUS SNOMED Code(s): 83538473 Comment: - No complaints of headache at this time - Continue butalbital (5) Anxiety Code(s): F41.9 - ANXIETY DISORDER, UNSPECIFIED SNOMED Code(s): 71307854 Comment: - Continue supportive care (6) COPD (chronic obstructive pulmonary disease) Code(s): J44.9 - CHRONIC OBSTRUCTIVE PULMONARY DISEASE, UNSPECIFIED SNOMED Code(s): 50927680 Comment: - No signs of acure exacerbation at this time - Quit smoking ~ 2016 - Continue home inhaled medications (7) GERD (gastroesophageal reflux disease) Code(s): K21.9 - GASTRO-ESOPHAGEAL REFLUX DISEASE WITHOUT ESOPHAGITIS SNOMED Code(s): 130290476 Comment: - Continue PPI (8) HTN (hypertension) Code(s): I10 - ESSENTIAL (PRIMARY) HYPERTENSION SNOMED Code(s): 81005905 Comment: - SBP 120-170's - Continue propranolol (9) TIA (transient ischemic attack) Comment: - History (10) Dementia Code(s): F03.90 - UNSPECIFIED DEMENTIA WITHOUT BEHAVIORAL DISTURBANCE SNOMED Code(s): 01884070 Comment: - Continue Aricept (11) DVT prophylaxis Code(s): [id number] - SNOMED Code(s): 782625186 Comment: - SQ heaparin (12) Full code status Code(s): Z78.9 - OTHER SPECIFIED HEALTH STATUS SNOMED Code(s): 535879204 Status and Disposition: Inpatient. Stable for discharge to home today.
--- NOTE | 2017-09-27 21:26 | ED ---
Heriberto Brice Angela, scribed for Mac Nuñez MD on 09/25/17 at 1732 . Altered Mental Status - HPI Summary HPI Summary: This pt is a 57 y/o female presenting to [facility] via EMS for an unresponsive episode today. EMS reports that when they arrived to scene pt was unconscious in the middle of the floor. EMS states that as time progressed pt became more arousable. Upon arriving to the ED the pt became combative and began pulling everything. EMS note that per pt may have possibly overdosed. Blood glucose was 112, per EMS. reports the pt has been acting aggressive for the past 3 days. He called 911 after the pt today collapsed on the floor and passed out. HPI IS LIMITED DUE TO LEVEL 5 CAVEAT - pt is combative and uncooperative - History Of Current Complaint Stated Complaint: AMS Time Seen by Provider: 09/25/17 17:08 Hx Obtained From: Family/Construction Contractor - , EMS Hx Last Menstrual Period: 2007 Patient had a water basting procedure Onset/Duration: Suddenly Severity Currently: Severe Character: Agitation - and aggressive Aggravating Factor(s): Unknown Alleviating Factor(s): Unknown - Allergies/Home Medications Allergies/Adverse Reactions: Allergies Allergy/AdvReac Type Severity Reaction Status Date / Time bee venom protein (honey bee) Allergy Anaphylatic Verified 09/25/17 17:58 Shock Home Medications: Home Medications Atorvastatin* [Lipitor*] 40 mg PO DAILY 09/25/17 [History Confirmed 09/25/17] Butalb/Acetamin/Caff TAB* [Fioricet TAB*] 1 - 2 tab PO Q4H PRN MDD 6 09/25/17 [ History Confirmed 09/25/17] Diazepam TAB(*) [Valium TAB(*)] 5 mg PO BID PRN MDD 2 09/25/17 [History Confirmed 09/25/17] Donepezil TAB* [Aricept 5 MG TAB*] 10 mg PO DAILY 09/25/17 [History Confirmed ] EPINEPHrine SYR* [EPINEPHphrine SYR*] 0.1 mg IM ONCE 09/25/17 [History Confirmed 09/25/17] Gabapentin CAP(*) [Neurontin 400 mg CAP(*)] 400 mg PO TID 09/25/17 [History Confirmed 09/25/17] Meloxicam(NF) [Mobic(NF)] 7.5 mg PO DAILY 09/25/17 [History Confirmed 09/25/17] Omeprazole CAP* [Prilosec CAP* 20 MG] 20 mg PO QAM 09/25/17 [History Confirmed 09/25/17] Propranolol TAB* [Inderal TAB*] 60 mg PO DAILY 09/25/17 [History Confirmed 09/25] Ranitidine TAB (NF) [Zantac TAB (NF)] 150 mg PO BID 09/25/17 [History Confirmed 09/25/17] Sertraline* [Zoloft*] 25 - 75 mg PO DAILY 09/25/17 [History Confirmed 09/25/17] Umeclidin 62.5 MDI(NF) [Incruse ELLIPTA MDI (NF)] 62.5 mcg IN DAILY 09/25/17 [ History Confirmed 09/25/17] Varenicline (NF) [Chantix 1 MG TAB (NF)] 1 mg PO BID 09/25/17 [History Confirmed 09/25/17] busPIRone TAB* [Buspar TAB *] 15 mg PO BID 09/25/17 [History Confirmed 09/25/17] PMH/Surg Hx/FS Hx/Imm Hx Endocrine/Hematology History: Denies: Hx Diabetes, Hx Thyroid Disease Cardiovascular History: Reports: Hx Hypertension Denies: Hx Pacemaker/ICD Respiratory History: Reports: Hx Chronic Obstructive Pulmonary Disease (COPD), Hx Sleep Apnea, Other Respiratory Problems/Disorders - COPD Denies: Hx Asthma GI History: Reports: Other GI Disorders - umbicial herrnia Denies: Hx Ulcer History: Denies: Hx Renal Disease Sensory History: Reports: Hx Contacts or Glasses - GLASSES Denies: Hx Hearing Aid Opthamlomology History: Reports: Hx Contacts or Glasses - GLASSES Neurological History: Reports: Hx Migraine - ON MEDS FOR, Other Neuro Impairments/Disorders - periphial neuropathy Psychiatric History: Reports: Hx Anxiety, Hx Depression Denies: Hx Panic Disorder - Surgical History Surgery Procedure, Year, and Place: - 1981 AND 1983- [facility]. hernia repair 2014 Hx Anesthesia Reactions: No - Immunization History Date of Influenza Vaccine: 01/2017 Infectious Disease History: No Infectious Disease History: Denies: Hx Clostridium Difficile, Hx Hepatitis, Hx Human Immunodeficiency Virus (HIV), Hx of Known/Suspected MRSA, Hx Shingles, Hx Tuberculosis, Hx Known/ Suspected VRE, Hx Known/Suspected VRSA, History Other Infectious Disease, Traveled Outside the [place] in Last 30 Days - Family History Known Family History: Positive: Unknown - due to level 5 caveat - pt is combative and uncooperative - Social History Alcohol Use: None Substance Use Type: Reports: None Smoking Status (MU): Former Smoker Type: Cigarettes Amount Used/How Often: 1 PACK A DAY Length of Time of Smoking/Using Tobacco: 30YEARS Review of Systems - ROS Summary Review of Systems Summary: ROS IS LIMITED DUE TO LEVEL 5 CAVEAT - pt is combative and uncooperative Negative: Fever Neurological: Other - POS: altered mental status, combative All Other Systems Reviewed And Are Negative: No Physical Exam - Summary Physical Exam Summary: VITAL SIGNS: Reviewed. GENERAL: Patient is a well-developed and nourished female. Pt is very aggressive and agitated. She is harmful to herself and others. Pt is kicking and pulling. HEAD AND FACE: No signs of trauma. No ecchymosis, hematomas or skull depressions. No sinus tenderness. EYES: PERRLA, EOMI x 2, No injected conjunctiva, no nystagmus. EARS: Hearing grossly intact. Ear canals and tympanic membranes are within normal limits. MOUTH: Oropharynx within normal limits. NECK: Supple, trachea is midline, no adenopathy, no JVD, no carotid bruit, no c- spine tenderness, neck with full ROM. CHEST: Symmetric, no tenderness at palpation LUNGS: Clear to auscultation bilaterally. No wheezing or crackles. CVS: Regular rate and rhythm, S1 and S2 present, no murmurs or gallops appreciated. ABDOMEN: Soft, non-tender. No signs of distention. No rebound no guarding, and no masses palpated. Bowel sounds are normal. EXTREMITIES: FROM in all major joints, no edema, no cyanosis or clubbing. NEURO: Alert and oriented x 3. No acute neurological deficits. Speech is normal and follows commands. SKIN: Dry and warm GCS: 15 Triage Information Reviewed: Yes Vital Signs On Initial Exam: Initial Vitals Temp Pulse Resp BP Pulse Ox 0 F 76 18 0/0 94 09/25/17 17:02 09/25/17 17:02 09/25/17 17:02 09/25/17 17:02 09/25/17 17:02 Vital Signs Reviewed: Yes Diagnostics - Vital Signs Vital Signs Temp Pulse Resp BP Pulse Ox 09/25/17 17:02 0 F 76 18 0/0 94 - Laboratory Lab Results: Lab Results 09/25/17 09/25/17 09/25/17 Range/Units 17:59 17:59 19:02 WBC 6.6 (3.5-10.8) 10^3/ul RBC 4.20 (4.0-5.4) 10^6/ul Hgb 13.2 (12.0-16.0) g/dl Hct 41 (35-47) % MCV 97 (80-97) fL MCH 31 (27-31) pg MCHC 32 (31-36) g/dl RDW 13 (10.5-15) % Plt Count 256 (150-450) 10^3/ul MPV 9.3 (7.4-10.4) um3 Neut % (Auto) 55.1 (38-83) % Lymph % (Auto) 28.2 (25-47) % Patrick % (Auto) 7.1 H (0-7) % Eos % (Auto) 8.2 H (0-6) % Baso % (Auto) 1.4 (0-2) % Absolute Neuts (auto) 3.6 (1.5-7.7) 10^3/ul Absolute Lymphs (auto) 1.9 (1.0-4.8) 10^3/ul Absolute Monos (auto) 0.5 (0-0.8) 10^3/ul Absolute Eos (auto) 0.5 (0-0.6) 10^3/ul Absolute Basos (auto) 0.1 (0-0.2) 10^3/ul Absolute Nucleated RBC 0 10^3/ul Nucleated RBC % 0.1 Sodium (139-145) mmol/L Potassium (3.5-5.0) mmol/L Chloride (101-111) mmol/L Carbon Dioxide (22-32) mmol/L Anion Gap (2-11) mmol/L BUN (6-24) mg/dL Creatinine (0.51-0.95) mg/dL Est GFR ( Amer) (>60) Est GFR (Non-Af Amer) (>60) BUN/Creatinine Ratio (8-20) Glucose (70-100) mg/dL Calcium (8.6-10.3) mg/dL Total Bilirubin (0.2-1.0) mg/dL AST (13-39) U/L ALT (7-52) U/L Alkaline Phosphatase (34-104) U/L Troponin I (<0.04) ng/mL C-Reactive Protein (< 5.00) mg/L Total Protein (6.4-8.9) g/dL Albumin (3.2-5.2) g/dL Globulin (2-4) g/dL Albumin/Globulin Ratio (1-3) TSH (0.34-5.60) mcIU/mL Urine Color Yellow Urine Appearance Clear Urine pH 5.0 (5-9) Ur Specific [place] 1.009 L (1.010-1.030) Urine Protein Negative (Negative) Urine Ketones Negative (Negative) Urine Blood Negative (Negative) Urine Nitrate Negative (Negative) Urine Bilirubin Negative (Negative) Urine Urobilinogen Negative (Negative) Ur Leukocyte Esterase Negative (Negative) Urine Glucose Negative (Negative) Salicylates (<30) mg/dL Urine Opiates Screen None detected (None Detect) Acetaminophen mcg/mL Ur Barbiturates Screen Presumptive positive A (None Detect) Ur Phencyclidine Scrn None detected (None Detect) Ur Amphetamines Screen None detected (None Detect) U Benzodiazepines Scrn Presumptive positive A (None Detect) Urine Cocaine Screen None detected (None Detect) U Cannabinoids Screen None detected (None Detect) Serum Alcohol (<10) mg/dL 09/25/17 Range/Units 19:02 WBC (3.5-10.8) 10^3/ul RBC (4.0-5.4) 10^6/ul Hgb (12.0-16.0) g/dl Hct (35-47) % MCV (80-97) fL MCH (27-31) pg MCHC (31-36) g/dl RDW (10.5-15) % Plt Count (150-450) 10^3/ul MPV (7.4-10.4) um3 Neut % (Auto) (38-83) % Lymph % (Auto) (25-47) % Patrick % (Auto) (0-7) % Eos % (Auto) (0-6) % Baso % (Auto) (0-2) % Absolute Neuts (auto) (1.5-7.7) 10^3/ul Absolute Lymphs (auto) (1.0-4.8) 10^3/ul Absolute Monos (auto) (0-0.8) 10^3/ul Absolute Eos (auto) (0-0.6) 10^3/ul Absolute Basos (auto) (0-0.2) 10^3/ul Absolute Nucleated RBC 10^3/ul Nucleated RBC % Sodium 142 (139-145) mmol/L Potassium 3.8 (3.5-5.0) mmol/L Chloride 107 (101-111) mmol/L Carbon Dioxide 28 (22-32) mmol/L Anion Gap 7 (2-11) mmol/L BUN 11 (6-24) mg/dL Creatinine 0.82 (0.51-0.95) mg/dL Est GFR ( Amer) 93.1 (>60) Est GFR (Non-Af Amer) 72.4 (>60) BUN/Creatinine Ratio 13.4 (8-20) Glucose 94 (70-100) mg/dL Calcium 9.0 (8.6-10.3) mg/dL Total Bilirubin 0.20 (0.2-1.0) mg/dL AST 15 (13-39) U/L ALT 13 (7-52) U/L Alkaline Phosphatase 88 (34-104) U/L Troponin I 0.00 (<0.04) ng/mL C-Reactive Protein 1.07 (< 5.00) mg/L Total Protein 6.4 (6.4-8.9) g/dL Albumin 3.7 (3.2-5.2) g/dL Globulin 2.7 (2-4) g/dL Albumin/Globulin Ratio 1.4 (1-3) TSH 3.45 (0.34-5.60) mcIU/mL Urine Color Urine Appearance Urine pH (5-9) Ur Specific [place] (1.010-1.030) Urine Protein (Negative) Urine Ketones (Negative) Urine Blood (Negative) Urine Nitrate (Negative) Urine Bilirubin (Negative) Urine Urobilinogen (Negative) Ur Leukocyte Esterase (Negative) Urine Glucose (Negative) Salicylates < 2.50 (<30) mg/dL Urine Opiates Screen (None Detect) Acetaminophen < 15 mcg/mL Ur Barbiturates Screen (None Detect) Ur Phencyclidine Scrn (None Detect) Ur Amphetamines Screen (None Detect) U Benzodiazepines Scrn (None Detect) Urine Cocaine Screen (None Detect) U Cannabinoids Screen (None Detect) Serum Alcohol < 10 (<10) mg/dL Result Diagrams: 09/25/17 19:02 09/25/17 19:02 Lab Statement: Any lab studies that have been ordered have been reviewed, and results considered in the medical decision making process. - Radiology Chest XR Xray Interpretation: No Acute Changes - IMPRESSION: No active cardiopulmonary disease. Dr. Nuñez has reviewed this radiology report. Radiology Interpretation Completed By: Radiologist - CT Brain CT CT Interpretation: No Acute Changes - IMPRESSION: No acute intracranial pathology. Dr. Nuñez has reviewed this radiology report. CT Interpretation Completed By: Radiologist Altered Mental Statu Course/Dx - Course Assessment/Plan: This patient is a 57-year-old female who presents to the emergency department via ambulance with a chief complaint of change in the mental status. As per EMS report that her reported that the patient may have been overdosing him some substance. At arrival to the emergency department the patient is agitated and uncooperative, plan she is a danger to herself and others. Therefore, the patient was given Benadryl, Ativan, and Haldol. Blood test results without any significant abnormality. CRP 32.73. Urinalysis is negative for UTI. Urine toxicology positive for barbiturates and benzodiazepines. Head CT impression: No acute intracranial pathology. Chest x- ray impression: No active cardiopulmonary disease. The patient continued to have altered mental status, she is in 4-point restraints. We assess the patient every 2 hours and she is resting comfortable at this point. I discuss my physical exam, findings and test results with Dr. Berman from the hospitalist services and he agrees to admit patient to his services. Patient is hemodynamically stable . - Diagnoses Provider Diagnoses: Altered mental status - Provider Notifications Discussed Care Of Patient With: Celio Berman Time Discussed With Above Provider: 19:45 Instructed by Provider To: Other - I discussed pt care with Dr. Berman, hospitalist, who has agreed to admit the pt. Discharge - Sign-Out/Discharge Documenting (check all that apply): Discharge/Admit/Transfer - Admit - Discharge Plan Condition: Stable Disposition: ADMITTED TO [facility] Referrals: Mickey George DO [Primary Care Provider] - The documentation as recorded by the Heriberto bonilla Angela accurately reflects the service I personally performed and the decisions made by , Mac Nuñez MD.
--- NOTE | 2017-09-28 16:34 | DS ---
CC: Dr. Mickey George.* DISCHARGE SUMMARY: DATE OF ADMISSION: 09/25/17. DATE OF DISCHARGE: 09/27/17. ATTENDING PHYSICIAN: Dr. Douglas Pascual * (dictated by Paul Garcia NP). PRIMARY CARE PROVIDER: Dr. Mickey George. PRIMARY DIAGNOSES: 1. Altered mental status. 2. Polypharmacy. 3. Toxic encephalopathy, resolved. SECONDARY DIAGNOSES: 1. Vitamin D deficiency. 2. Neuropathy. 3. Migraines. 4. Chronic obstructive pulmonary disease. 5. Gastroesophageal reflux disease. 6. Anxiety. 7. Mild cognitive impairment with possible dementia. 8. History of transient ischemic attack. CONSULTATION WHILE IN THE HOSPITAL: Dr. Jose Fontenot with Psychiatry. STUDIES WHILE IN THE HOSPITAL: 1. Chest x-ray on 09/25/17. Radiologist's impression: No active cardiopulmonary disease. 2. Brain CT on 09/25/17. Radiologist's impression: No acute intracranial pathology. 3. Cervical spine CT on 09/25/17. 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 Degenerative disk disease and osteoarthritis. There is mild narrowing of the central canal at C5 to C6 and C6 to C7. There is a multilevel neural foraminal narrowing as described above. A 1.1-cm nodule of the right thyroid. No acute osseous injury of the cervical spine. DISCHARGE MEDICATIONS: Continued home medications: 1. Meloxicam 7.5 mg oral daily. 2. Omeprazole 20 mg oral daily. 3. Gabapentin 400 mg oral 3 times daily. 4. Fioricet 1 to 2 tablets oral every 4 hours as needed for headache, not to exceed four tablets per day. 5. Epinephrine 0.1 mg IM once as needed for allergy symptoms. 6. Ranitidine 150 mg oral twice daily. 7. Ellipta MDI 62.5 mcg inhalation daily. 8. Aricept 10 mg oral daily. 9. Atorvastatin 40 mg oral daily. 10. Propranolol 60 mg oral daily. Discontinued home medications: Diltiazem. Medications to discuss with primary care provider: 1. Sertraline. 2. BuSpar. HISTORY OF PRESENT ILLNESS/HOSPITAL COURSE: Ms. Lofton is a 57-year-old female with past medical history significant for peripheral neuropathy, COPD, migraines, GERD, anxiety, possible dementia, history of TIA, hyperlipidemia, hypertension, who according to her significant other was having difficulty and acting confused, acting as though she was intoxicated. She was reporting feeling weak in the legs and just generally not acting like herself. She became agitated at times. There were no reports of recreational drugs or alcohol use. He picked up some medications for her a few days prior he believes , this included diazepam. He became concerned when she was not getting any better. He is really unsure how she was taking her medications. She had an episode where she fell, striking her head, becoming more unresponsive, more confused. He called 911 and placed her on her side and she was brought to the emergency room. While in the emergency room, the patient was very combative and belligerent, requiring a one-to-one observation, sedating medications, and restraints due to her combativeness and was conformed to herself and staff. She had a brain CT showing no acute findings. The chest x-ray showed no acute findings due to her altered mental status. The hospitalists were asked to evaluate her for admission. While in the hospital, the patient's altered mental status was suspected to be a toxic encephalopathy. The first morning of her admission, she was very lethargic, slurring her words, agreeable to stay and see how the day went. As the day progressed, the patient became more adamant that she left. There was concern that the patient may have intentionally took more medications than she should have and she admitted to overusing diazepam and Fioricet. Her significant other brought in pills and she was found to have medication bottles that were emptied 10 days prior to when they should have been running out, and also appears that she was getting sertraline from two different providers in the community. Due to this, she was seen in consultation by Dr. Fontenot to determine her capacity and to assist with determining if this is intentional or unintentional. It was felt that she had capacity to leave against medical advice. It was recommended that the patient see her primary care provider after discharge to assist with managing her medications. Her boyfriend also agreed to help control her medications. It was recommended that he go home and destroy the Valium prescription left at home. The patient did agree to stay overnight to this morning. She is feeling much better, and she is alert and oriented, and ready for discharge. Ms. Lofton is stable for discharge today. Vital signs are as follows: Temperature 97.3, heart rate 73, respiratory rate 20, O2 sat 94% on room air, blood pressure 125/81. DISCHARGE PLAN: Ms. Lofton will be discharged to home. Activity as tolerated. She will be on a regular diet. In regards to her toxic encephalopathy, this is resolved. As far as her polypharmacy, she has been instructed to stop taking Valium and her significant other has disposed this already. She has been instructed to only take her Fioricet as directed 1 to 2 tablets every 4 hours and not to exceed 6 tablets daily. She has also been asked to hold her Zoloft and BuSpar until she is able to see Dr. George in followup. She has a followup appointment with Dr. George tomorrow on 09/28/17 at 2 p.m. and she has been instructed to bring her medication bottles with her, so that he can assist her in knowing what to take for medications again. POINTS OF DISCUSSION AT FOLLOWUP: Please continue to encourage the patient to allow her significant other to assist with medical management. In regards to her possible underlying dementia versus mild cognitive impairment, she is on Aricept. I recommend if she has not previously had a neurology consult that she be seen in consultation by Neurology outpatient. Again, continue to encourage the patient to take her medications accordingly and not to abuse them or self- adjust them on her own. This is a summarized report of a complex medical history and hospital stay. For further details, please see the entire medical record. TIME SPENT: Time for this discharge was approximately 50 minutes, greater than half of that was spent with the patient discussing discharge plans and instructions. CONDITION ON DISCHARGE: Stable. PAUL YUEN, HOME [id number]/CPS #: [id number] KERI
== END 2017-09-27 10:58 | disposition home or self-care (01) | DRG 812 ==
LOC: ED 16:48 → MEDTELE 20:58 → OBSVTOIN 09-26 18:09
PROVIDERS: ADMIT Hospitalist; ATTEND Student in an Organized Health Care Education/Training Program
DX: T39.1X1A Poisoning by 4-Aminophenol derivatives, accidental (unintentional), initial encounter (principal); G92 Toxic encephalopathy; T42.4X1A Poisoning by benzodiazepines, accidental (unintentional), initial encounter; I10 Essential (primary) hypertension; J44.9 Chronic obstructive pulmonary disease, unspecified; G47.30 Sleep apnea, unspecified; G43.909 Migraine, unspecified, not intractable, without status migrainosus; G62.9 Polyneuropathy, unspecified; E55.9 Vitamin D deficiency, unspecified; K21.9 Gastro-esophageal reflux disease without esophagitis; F41.9 Anxiety disorder, unspecified; E78.5 Hyperlipidemia, unspecified; F03.90 Unspecified dementia, unspecified severity, without behavioral disturbance, psychotic disturbance, mood disturbance, and anxiety; R00.1 Bradycardia, unspecified; M47.892 Other spondylosis, cervical region; E04.1 Nontoxic single thyroid nodule; Z78.1 Physical restraint status; Y92.009 Unspecified place in unspecified non-institutional (private) residence as the place of occurrence of the external cause; Z91.030 Bee allergy status; Z87.891 Personal history of nicotine dependence; Z86.73 Personal history of transient ischemic attack (TIA), and cerebral infarction without residual deficits; Z80.8 Family history of malignant neoplasm of other organs or systems; Z82.49 Family history of ischemic heart disease and other diseases of the circulatory system
CPT/HCPCS: 36415; 70450; 71045; 72125; 80048; 80053; 80307; 80320; 80329; 81003; 82140; 82607; 82803; 84443; 84484; 85025; 85610; 86140; 93005; 99285; A9270-GY; G0378; G0480; J1200; J1630; J1644; J2060

== ENCOUNTER 2018-01-26 11:43 | Emergency (ER) | payer OTHER ==
--- OUTSIDE RECORDS SUMMARY | 2018-01-26 12:03 | XMS REPORT ---
:1960 External Reference #:[id number] Author Organization [facility] Address [address] [place] [address] Phone [phone] Care Team Providers Name Role Phone HCP/LW on file Primary Care Physician Unavailable Payers Type Date Identification Numbers Payment Provider Subscriber Commercial Policy Number: [id number] [facility] Fatemeh Lofton PayID: [id number] [place] [id number] Medigap Part B Effective: 2013 Policy Number: Medicaid Fatemeh Lofton [id number] Expires: 2014 PayID: [id number] [place] [address] Problems Date Description Provider Status Onset: 05/20/2014 [...] Form Strength Qnty SIG Indications Ordering Provider Sertraline Active Tablets 50mg 90tabs 1 by mouth M79.674 Sopchak, HCL 018 every day Juan Luis Arevalo Butalbital/Ac Active Tablets 50-325-40mg 60tabs 1-2 tabs G44.201 Ariel, etaminophen/C 018 every 4 Yue, affeine hours D.O. maximum daily dose of 6 as needed for back of head headache Meloxicam Active Tablets 7.5mg 90tabs 1 by mouth M79.674 Sopchak, 018 every day Yue, D.O. G43.109 Propranolol HCL 08/28/2017 Active Caps ER 60mg 90caps take 1 capsule I10 Sopchak, ER 24HR by mouth once Yue, D.O. daily for headaches G43.109 Omeprazole 08/27/[address] 20mg 30caps 1 every day K29.50 Sopchak, 20 minutes Yue, before D.O. morning meal for abd discomfort Buspirone HCL 06/20/2017 Active Tablets 15mg 60tabs Take One M79.674 Sopchak, Tablet By Yue, Mouth Twice A D.O. Day For Anxiety Co Q-10 04/02/2017 Active Capsules 100mg 90caps 1 by mouth G43.109 Sopchak, every day Yue, D.O. Fluticasone 02/22/2017 Active Suspension 50mcg/ 16units [place] 2 J01.90 Sopchak, Propionate Act Sprays In Yue, Each Nostril D.O. Every Day (Or 1 [place] Two Times A Day) Gabapentin 07/04/2016 Active Capsules 400mg 360caps take one G60.8 Sopchak, capsule by Yue, mouth four D.O. times a day Incruse 09/01/2015 Active Aerosol 62.5mc 90units Inhale One J20.9 Sopchak, Ellipta g/Inh puff By Mouth Yue, Every Day D.O. Epinephrine 09/07/2014 Active Solution 0.3mg/ 1units use as Silcoff, Auto-Inject 0.3ML directed for Adrian, bee stings M.D. Vitamin B 08/07/2014 Active Capsules 180caps 1 by mouth G44.209 Sopchak, Complex-C twice a day Yue, D.O. Ventolin HFA 06/09/2014 Active Aerosol 108(90 54gm inhale 2 J20.9 Sopchak, Base) puffs by Yue, mcg/Ac mouth every 4 D.O. t hours as needed for bronchospasm Advair HFA 06/09/2014 Active Aerosol 115-21 36gm inhale one to J20.9 Sopchak, mcg/Ac two puffs by Yue, t mouth twice a D.O. day (rinse mouth after use) Magox 400 05/27/2014 Active Tablets 400(24 450tabs 3 tablets M79.674 Sopchak, 1.3mg) every night Yue, mg at bedtime as D.O. directed J20.9 E83.42 Vitamin D3 05/27/2014 Active Capsules 5000Unit 90caps take one E55.9 Sopchak, capsule by Yue, mouth D.O. every day or 7 tablets once a week Albuterol 05/27/2014 Active Nebulizer 1.25mg/3ML 75units use 3ml or J20.9 Silcoff, Sulfate 1 vial up Adrian, to four M.D. times a day as directed J44.1 Atorvastatin Calcium Active Tablets 40mg Alex Cardenas DO Sertraline HCL 12/18/2017 - Hx Tablets 25mg 90ta take 1 tablet M [facility], 01/26/2018 bs by mouth one 7 Yue, time daily 9 D.O. . 6 7 4 Sertraline HCL 10/29/2017 - Hx Tablets 50mg 90ta 1 by mouth M [facility], 12/18/2017 bs every day 7 Yue, 9 D.O. . 6 7 4 Diazepam 08/01/2017 - Hx Tablets 5mg 60ta 1 tab by mouth F [facility], 09/27/2017 bs twice daily as 4 Yue, needed for 1 D.O. anxiety/panic . attacks 9 Diazepam 07/04/2017 - Hx Tablets 2mg 60ta take 1-2 F [facility], 08/01/2017 bs tablets by 4 Yue, mouth every 12 1 D.O. hours as needed . for anxiety 9 Diazepam 06/20/2017 - Hx Tablets 10mg 60ta take 1/2 tablet F [facility], 07/04/2017 bs by mouth twice 4 Yue, daily as needed 1 D.O. . 9 Chantix Continuing 04/03/2017 - Hx Tablets 1mg 56ta Take One Tablet [facility], [facility] Feliciano 08/27/2017 bs By Mouth Twice Yue, A Day For D.O. Smoking Cessation Oxazepam 04/02/2017 - Hx Capsules 10mg 90ca take 1 capsule Lisandra Ariel, 06/20/2017 ps by mouth 3 4 Uye, times per day 1 D.O. as needed for . anxiety 9 Amoxicillin/Clavulan 04/02/2017 - Hx Tablets 875-12 20ta 1 by mouth Kenisha Ariel ate Potassium 04/12/2017 5mg bs twice a [...] 4 M.D. exacerbation of . bronchitis 1 Sertraline HCL 01/26/2017 - Hx Tablets 100mg 90ta Take One Tablet Portillo Ariel, 10/29/2017 bs By Mouth Every 7 Yue, Day 9 D.O. . 6 7 4 Tobradex 07/05/2016 - Hx Suspension 0.3-0. 5ml [...] Tablets 4mg 21ta 6 tabs on day J [facility], 07/10/2016 bs 1; then 5 tabs 2 Yue, day2; then 4 0 D.O. tabs ay3; then . 3 tabs day4; 9 then 2 tabs day 5; then 1 tab day 6 Sertraline HCL 05/22/2016 - Hx Tablets [facility] 30ta [facility] every day 7 Yue, 9 D.O. . 6 7 4 Propranolol HCL ER 05/22/2016 - Hx Caps ER 24HR 80mg 30ca Take One G [facility], 06/20/2017 ps Capsule By 4 Yue, Mouth Every Day 3 D.O. For High Blood . Pressure 1 0 9 G44.201 I10 Methylprednisolone 04/06/2016 - Hx Tablets 4mg 21tabs 6 tabs on J20.9 [facility], 04/12/2016 day 1; Yue, then 5 D.O. tabs day2; then 4 tabs ay3; then 3 tabs day4; then 2 tabs day 5; then 1 tab day 6 Azithromycin 04/06/2016 - Hx Tablets 250mg 6tabs take 2 J20.9 [facility], 04/11/2016 tablets by Yue, mouth one D.O. time on the first day then take 1 tablet by mouth daily for 4 days Naproxen 03/27/2016 - Hx Tablets 500mg 180tabs take 1-2 M79.674 [facility] , 08/28/2017 tablets by Yue, mouth D.O. twice a day G43.109 Buspirone HCL 01/28/2016 - Hx Tablets 10mg 180tabs take one M79.674 [facility], 06/20/2017 tablet by Yue, D.O. mouth twice a day Naprosyn 01/11/2016 - Hx Tablets 500mg 60tabs 1-2 caps by M79.674 [facility], 03/27/2016 mouth twice Yue, D.O. a day as needed for pain G43.109 Indomethacin 12/14/2015 - Hx Capsules 50mg 45caps Take One M79.674 [facility], 01/11/2016 Capsule By Yue, Mouth Three D.O. Times A Day as Needed For Neck Pains And Foot Pains Donepezil HCL 12/10/2015 - Hx Tablets 10mg 1 po daily R41.3 Unknown 09/28/2017 Lexapro 12/10/2015 - Hx Tablets 20mg 180tabs 2 by mouth M79.674 Sopchak , 05/22/2016 every day Yue, per D.O. neurologist Cyclobenzaprine 10/13/2015 - Hx Tablets 5mg 30tabs take one G44.201 Sopchak, HCL 06/20/2017 tablet by Yue, mouth every D.O. night for neck tension/head aches will make you drowsy Butalbital/Acetam 10/13/2015 - Hx Capsules 50-325 30caps take one G44.201 Sopchak, inophen/Caffeine/ 08/28/2017 -40-30 capsule by Yue, Codeine mg mouth every D.O. 4 hours as needed for headache maximum daily dose=4 tablets Ranitidine HCL 08/13/2015 - Hx Tablets 150mg 60tabs Take One K21.9 Sopchak, 09/27/2017 Tablet By Yue, Mouth Twice D.O. A Day as Needed Spiriva 07/28/2015 - Hx Capsules 18mcg 90caps [...] Tablets 7.5mg 60tabs 1 cap by M79.674 Ariel, 01/28/2016 mouth twice Yue, a day as D.O. needed Lidocaine 03/15/2015 - Hx Ointment 5% [facility] small amout Yue, of ointment D.O. to the affected area three times a day for pain Voltaren 03/15/2015 - Hx Gel 1% 500units 2 gm apply M76.71 [facility], 09/27/2017 to affected Yue, area every D.O. day # 100gm Lexapro 03/15/2015 - Hx Tablets 20mg 90tabs Take One M79.674 Ariel, 12/14/2015 Tablet By Yue, Mouth Every D.O. Day Wrist 02/11/2015 - Hx Misc 1units change size G56.02 Ariel, Splint/Cock-Up/Le 03/13/2015 as needed juan Arevalo/Canvas/Large based on D.O. fit. Hydrocodone-Aceta 11/10/2014 - Hx Tablets 5-325m 30tabs 1 tabletq 4 M54.5 Ariel, minophen 04/13/2015 g hours as Yue, needed for D.O. severe pain M72.2 M25.571 Lexapro 11/10/2014 - Hx Tablets 10mg 90tabs 1 by mouth M79.674 Ariel, 03/15/2015 every day Yue D.O. Gabapentin 07/07/2014 - Hx Capsules 300mg 90caps Take One G60.8 Ariel , 07/04/2016 Capsule By Yue D.O. Mouth Every Day In The Evening In Addition To 100MG Capsules During The Day Hydrocodone-Ac 06/29/2014 - Hx Tablets 5-325mg 15tabs 1 tabletq 4 724.2 Silcoff, etaminophen 11/09/2014 hours as Adrian, needed for M.D. severe pain 728.71 Gabapentin 06/09/2014 - Hx Capsules 100mg 120caps 1 tabs by G60.8 Ariel, 04/13/2015 mouth four Yue, times a day [...] 18mcg 90caps Inhale The J20.9 Sopchak, Handihaler 06/14/2015 Contents Of Yue, One Capsule D.O. By Mouth Via Handihaler Daily No Active 05/20/2014 - Hx Unknown Medications 05/20/2014 Omeprazole 05/20/2014 - Hx Capsules DR 40mg 90caps 1 by mouth K21.9 Sopchak, 07/28/2015 every day Yue, D.O. Sumatriptan 05/20/2014 [...] injection, Administered Injection Sopchak, kenalog, 10 mg 018 Yue, D.O. SC/Im Administered Injection Sopchak, Injections 018 Yue, D.O. injection, Administered Injection Sopchak, kenalog, 10 mg 016 Yue, D.O. injection, Administered Injection Sopchak, kenalog, 10 mg 016 Yue, D.O. injection, Administered Injection Sopchak, kenalog, 10 mg 015 Yue, D.O. SC/Im Administered Injection Sopchak, Injections 015 Yue, D.O. injection, Administered Injection Sopchak, kenalog, 10 mg 015 Patricio Arevalo. SC/Im Administered Injection Sopchak, Injections 015 Juan Luis Arevalo Immunizations CPT Code Status Date Vaccine Lot # [id number] Given 01/26/2017 Influenza Virus Vaccine, Quadrivalent, Split, [id number] Preservative Free 69784 Given 05/22/2016 Pneumococcal Immunization [id number] Given 05/22/2016 Influenza Virus Vaccine, Quadrivalent, Split, [id number] Preservative Free 31358 Given 03/15/2015 Influenza Virus Vaccine, Quadrivalent, Split, [id number] Preservative Free 47700 Given 03/15/2015 Prevnar 13 [id number] 99312 Given Unknown Flu, Split Virus 3Yrs Vital Signs Date Vital Result Comment 01/26/2018 BP Systolic 128 mmHg BP Diastolic 84 mmHg Weight 187.00 lb 12/18/2017 BP Systolic 138 mmHg BP Diastolic 78 mmHg 10/29/2017 BP Systolic 142 mmHg BP Diastolic 82 mmHg Weight 185.00 lb 09/28/2017 BP Systolic 134 mmHg BP Diastolic 70 mmHg Weight 179.00 lb 09/17/2017 BP Systolic 138 mmHg BP Diastolic 70 mmHg Weight 177.00 lb with sneakers 08/28/2017 BP Systolic 158 mmHg BP Diastolic 70 mmHg BP Systolic Recheck 148 mmHg BP Diastolic Recheck 88 mmHg Weight 175.00 lb 08/27/2017 BP Systolic 148 mmHg BP Diastolic [...] Test Date Test Result H/L Range Note Arterial Blood Gas 09/25/2017 O2 Device NC PH Arterial 7.42 7.35-7.45 Pco2 Arterial 45 mmHg 35-45 Po2 Arterial 154 mmHg High 80-100 O2 Saturation Arterial 98.7 % High 95-98 Base Excess Arterial 4.0 High -2.0-2.0 1 Hco3 Arterial 28.0 mmol/L - Urinalysis Profile 09/25/2017 Urine Color Yellow Urine Appearance Clear Urine Specific [place] 1.009 Low 1.010-1.030 Urine pH 5.0 5-9 Urine Urobilinogen Negative Negative Urine Ketones Negative Negative Urine Protein Negative Negative Urine Leukocytes Negative Negative Urine Blood Negative Negative Urine Nitrite Negative Negative Urine Bilirubin Negative Negative Urine Glucose Negative Negative Urine Drug SCR ED & 09/25/2017 Amphetamine Ur Screen None Detected None Detect Pain Clinic Barbiturates Urine Screen Presumptive Posi <SEE NOTE> None Detect 2 Benzodiazepine Urine Screen Presumptive Posi <SEE NOTE> None Detect 3 Urine Cannabinoids Screen None Detected None Detect Urine Cocaine Screen None Detected None Detect Urine Opiates Screen None Detected None Detect Urine Phencyclidine Screen None Detected None Detect 4 CBC Auto Diff 09/25/2017 White Blood Count 6.6 10^3/uL 3.5-10.8 Red Blood Count 4.20 10^6/uL 4.0-5.4 Hemoglobin 13.2 g/dL 12.0-16.0 Hematocrit 41 % 35-47 Mean Corpuscular Volume 97 fL 80-97 Mean Corpuscular Hemoglobin 31 pg 27-31 Mean Corpuscular HGB Conc 32 g/dL 31-36 Red Cell Distribution Width 13 % 10.5-15 Platelet Count 256 10^3/uL 150-450 Mean Platelet Volume 9.3 um3 7.4-10.4 Abs Neutrophils 3.6 10^3/uL 1.5-7.7 Abs Lymphocytes 1.9 10^3/uL 1.0-4.8 Abs Monocytes 0.5 10^3/uL 0-0.8 Abs Eosinophils 0.5 10^3/uL 0-0.6 Abs Basophils 0.1 10^3/uL 0-0.2 Abs Nucleated RBC 0 10^3/uL Granulocyte % 55.1 % 38-83 Lymphocyte % 28.2 % 25-47 Monocyte % 7.1 % High 0-7 Eosinophil % 8.2 % High 0-6 Basophil % 1.4 % 0-2 Nucleated Red Blood Cells % 0.1 Laboratory test finding 09/25/2017 Acetaminophen < 15 g/mL 5 Alcohol < 10 mg/dL <10 Salicylate < 2.50 mg/dL <30 Comp Metabolic Panel 09/25/2017 Sodium 142 mmol/L 139-145 Potassium 3.8 mmol/L 3.5-5.0 Chloride 107 mmol/L 101-111 Co2 Carbon Dioxide 28 mmol/L 22-32 Anion Gap 7 mmol/L 2-11 Glucose 94 mg/dL 70-100 Blood Urea Nitrogen 11 mg/dL 6-24 Creatinine 0.82 mg/dL 0.51-0.95 BUN/Creatinine Ratio 13.4 8-20 Calcium 9.0 mg/dL 8.6-10.3 Total Protein 6.4 g/dL 6.4-8.9 Albumin 3.7 g/dL 3.2-5.2 Globulin 2.7 g/dL 2-4 Albumin/Globulin Ratio 1.4 1-3 Total Bilirubin 0.20 mg/dL 0.2-1.0 Alkaline Phosphatase 88 U/L 34-104 Alt 13 U/L 7-52 Ast 15 U/L 13-39 Egfr Non- 72.4 >60 Egfr 93.1 >60 6 Laboratory test finding 09/25/2017 C Reactive Protein 1.07 mg/L < 5.00 7 Troponin-I (TnI) 0.00 ng/mL <0.04 TSH (Thyroid Stim Horm) 3.45 mcIU/mL 0.34-5.60 Vitamin B12 306 pg/mL 180-914 8 Laboratory test finding 08/28/2017 Lipase 59 U/L 11.0-82.0 Amylase 35 U/L 29-103 Ua Inhouse 08/27/2017 Ua Glucose - 9 Ua Bilirubin - 9 Ua Ketones - 9 Ua Specific [place] 1.005 9 Ua Blood - 9 Ua PH 5.0 9 Ua Protein - 9 Ua Urobilinogen - 9 Ua Nitrite - 9 Ua Leukocytes - 9 Laboratory test finding 08/27/2017 Cytology SEE RESULT BELOW 10 CBC Auto Diff 06/20/2017 White Blood Count [...] Egfr Non- 48.7 >60 Egfr 62.6 >60 11 Laboratory test finding 06/20/2017 TSH (Thyroid Stim Horm) 3.48 mcIU/mL 0.34-5.60 Magnesium 2.0 mg/dL 1.9-2.7 Erythrocyte Sed Rate 11 mm/Hr 0-30 C Reactive Protein < 1.00 mg/L < 5.00 12 Phosphorus 5.5 mg/dL High 2.5-5.0 Vitamin B12 518 pg/mL 180-914 13 CBC Auto Diff 04/12/2017 White Blood Count [...] Egfr Non- 75.8 >60 Egfr 97.5 >60 14 Laboratory test finding 04/12/2017 Magnesium 2.1 mg/dL 1.9-2.7 TSH (Thyroid Stim Horm) 1.24 mcIU/mL 0.34-5.60 Free T4 (Free Thyroxine) 1.09 ng/dL 0.61-1.12 T3 Free 3.30 pg/mL 2.5-3.9 Thyroid Autoantibodies Profile 04/12/2017 Thyroperoxidase AB 0.18 IU/mL < 9 Thyroglobulin AB <1.8 IU/mL <4.0 15 Laboratory test finding 04/12/2017 Vitamin B12 522 pg/mL 180-914 16 Phosphorus 4.1 mg/dL 2.5-5.0 Lipid Profile (Trig/Chol/HDL) 04/12/2017 Triglycerides 200 mg/dL 17 Cholesterol 156 mg/dL 18 HDL Cholesterol 35.5 mg/dL 19 LDL Cholesterol 81 mg/dL 20 Laboratory test finding 04/02/2017 Culture Throat Rapid Screen negative Culture Throat negative Laboratory test finding 03/13/2017 Point of Care Glucose 122 mg/dL High 70 -100 21 Urinalysis Profile 03/13/2017 Urine Color Yellow Urine Appearance Cloudy Urine Specific [place] 1.014 1.010-1.030 Urine pH 5.0 5-9 Urine [...] finding 03/13/2017 Troponin-I (TnI) 0.19 ng/mL High <0.04 22 Urine Culture And Sensitivities SEE RESULT BELOW 23 Laboratory test finding 03/13/2017 Lactic Acid 0.8 mmol/L 0.5-2.0 24 CBC Auto Diff 03/13/2017 White Blood Count [...] Egfr Non- 65.2 >60 Egfr 83.9 >60 25 Laboratory test finding 03/13/2017 Troponin-I (TnI) 0.21 ng/mL High <0.04 26 Laboratory test finding 01/26/2017 Vitamin D Total 25(Oh) 43.7 ng/mL 20- 50 TSH (Thyroid Stim Horm) 0.66 mcIU/mL 0.34-5.60 CBC Auto Diff 01/26/2017 White Blood Count [...] Blood Cells % 0 Comp Metabolic Panel 01/26/2017 Sodium 139 mmol/L [...] Egfr Non- 91.7 >60 Egfr 118.0 >60 27 Laboratory test finding 01/26/2017 Magnesium 1.7 mg/dL Low 1.9-2.7 Vitamin B12 610 pg/mL 180-914 28 Paraneoplastic Evaluation 11/01/2016 Paraneoplastic Ab Interp See Comment 29 Anti-Neuronal Nuclear Ab Type1 Negative titer <1:240 Reflex Added None. 30 Anti-Neuronal Nuclear Ab Type2 Negative titer <1:240 31 Anti-Neuronal Nuclear Ab Type3 Negative titer <1:240 32 Anti-Glial/Neuronal Nuc Ab-1 A Negative titer <1:240 33 Purkinje Cell Cytoplasm Type 1 Negative titer <1:240 34 Purkinje Cell Cytoplasm Type 2 Negative titer <1:240 35 Purkinje Cell Cytoplasm Typ Tr Negative titer <1:240 36 Amphiphysin Antibody Negative titer <1:240 37 CRMP-5 IgG Antibody Negative titer <1:240 38 Anti-Striated Muscle Antibody Negative titer <1:120 39 Calcium Channel Binding Ab P/Q 0.00 nmol/L <=0.02 40 N Type Calcium Channel Binding 0.01 nmol/L <=0.03 41 ACh Receptor Muscle Binding Ab 0.00 nmol/L <=0.02 42 AChR Ganglionic Neuronal Ab 0.00 nmol/L <=0.02 43 Voltage-Gated Potassium Chann 0.00 nmol/L <=0.02 44 Laboratory test finding 12/14/2015 Uric Acid 5.7 [...] Egfr Non- 82.1 >60 Egfr 105.6 >60 45 Laboratory test finding 10/11/2015 C Reactive Protein 3.62 mg/L < 5.00 46 TSH (Thyroid Stim Horm) 1.07 ?IU/mL 0.34-5.60 47 Free T4 (Free Thyroxine) 1.03 ng/dL 0.61-1.12 48 Folic Acid (Folate) > 20.00 ng/mL >3.99 49 Vitamin B12 689 pg/mL 180-914 50 Methylmalonic Acid Mma 0.16 nmol/mL <=0.40 51 CBC Auto Diff 06/14/2015 White Blood Count [...] Blood Cells % 0 Comp Metabolic Panel 06/14/2015 Sodium 138 mmol/L [...] Egfr Non- 79.9 >60 Egfr 102.8 >60 52 Laboratory test finding 06/14/2015 Amylase 31 U/L 29-103 Lipase 26 U/L 11.0-82.0 Xray 11/10/2014 X-Ray, Foot, Bilateral Normal bilateral fot Clotest 06/19/2014 Clotest (SEE NOTE) 53 Surgical Pathology 06/19/2014 S RUN DATE: <SEE NOTE> H.Pylori Igm AB 05/20/2014 Helicobacter pylori Negative Negative IgM Ab H pylori IgM AB Index 15.20 55 Hpigg 05/20/2014 Helicobacter pylori IgG Ab Negative Negative H pylori IgG AB Index 4.69 56 H Pylori Iga 05/20/2014 Helicobacter pylori IgA Ab Negative Negative H pylori IgA Ab Index 2.78 57 HIV 1/2 AB Evaluation 05/20/2014 HIV 1 2 Antibody Nonreactive Nonreactive 58 Laboratory test finding 05/20/2014 Magnesium 2.2 mg/dL 1.9-2.7 TSH (Thyroid Stimulating Horm) 1.39 IU/mL 0.34-5.60 Erythrocyte Sed Rate 15 mm/Hr 0-30 Hepatitis C Antibody Nonreactive Nonreactive C Reactive Protein 1.59 mg/L < 5.00 59 Vitamin D, 25 Hydroxy 05/20/2014 25-Hydroxy Vitamin D2 <4.0 ng/mL 25-Hydroxy Vitamin D3 20 ng/mL 25-Hydroxy Vitamin D Total 20 ng/mL 60 Laboratory test finding 05/20/2014 Vitamin B12 381 pg/mL 180-914 61 Lipid Profile (Trig/Chol/HDL) 05/20/2014 Triglycerides 212 mg/dL 62 Cholesterol 268 mg/dL 63 HDL Cholesterol 52.7 mg/dL 64 LDL Cholesterol 173 mg/dL 65 Comp Metabolic Panel 05/20/2014 Sodium 137 mmol/L [...] Egfr Non- 79.0 >60 Egfr 101.6 >60 66 CBC Auto Diff 05/20/2014 White Blood Count [...] Nucleated Red Blood Cells % 0.1 1 Reference ranges based on room air. 2 Presumptive Positive Presumptive positive results are unconfirmed. 3 Presumptive Positive Presumptive positive results are unconfirmed. 4 The urine specimen was tested at the listed cutoffs: Drug class test level (ng/mL) Amphetamines 500 Barbiturates 200 Benzodiazepine metabolites 200 Cocaine metabolites 150 Cannabinoids 50 Opiates 300 Pcp 25 Specimen was received without chain of custody. Results should be used for medical purposes only. 5 Therapeutic concentration: <50 ug/mL Toxic concentration: >120 ug/mL 6 Because ethnic data is not always readily [...] 15-29 5 Kidney failure <15 (or dialysis) 7 Acute inflammation: >10.00 8 Normal Range 180 to 914 Indeterminate Range 145 to 180 Deficient Range <145 9 void, clear, yellow 10 SEE RESULT BELOW Name: FATEMEH LOFTON : [address]: Tracy HENRY Acct: [id number] Unit: [id number] AGE: 56 Location: [facility] Re08/27/17 SEX: F Status: REG REF SPEC: [id number] DENNYS: 08/27/[address]: Tracy HENRY REQ: [id number] RECD: 08/27/17 STATUS: SOUT _ ORDERED: TP IMAGE ANALYS, HPV/Thin Prep COMMENTS: [id number] Negative for Intraepithelial lesion or Malignancy A. Ectocervical/Endocervical Specimen Adequacy: Satisfactory of evaluation Transformation zone component identified Patient Information: HPV: High risk HPV RNA testing regardless of pap results. Actual Specimen Date: 08/27/17 LMP If Unknown: 1999 ?: N Post Menopausal?: Y Hysterectomy?: N Date Time Test Result Flag (u) Normal Range 08/27/171121 @ HPV RNA Negative Negative @ @ The high-risk HPV types detected by the assay include: 16, @ 18, 31, 33, 35, 39, 45, 51, 52, 56, 58, 59, 66, and 68. Signed (signature on file) MARYCARMEN Muniz(ASC) 08/28 1332 This Pap test was evaluated with the assistance of the ThinPrep Test Imaging System. Due to cytologic findings at the director apparel microscope, comprehensive manual rescreening by a Osteopathic Medicine Teacher may be required. The Pap Smear is a screening test designed to aid in the detection of premalignant and malignant conditions of the uterine cervix. It is not a diagnostic procedure and should not be used as the sole means of detecting cervical cancer. Both false- positive and false- negative reports do occur. Depending on your risk status, a Pap smear should be obtained and evaluated every 1-3 years. END OF REPORT DEPARTMENT OF PATHOLOGY, [address] [place] [address] Judd Arechiga M.D. Director [facility] # [id number] 11 Because ethnic data is not always readily [...] 15-29 5 Kidney failure <15 (or dialysis) 12 Acute inflammation: >10.00 13 Normal Range 180 to 914 Indeterminate Range 145 to 180 Deficient Range <145 14 Because ethnic data is not always readily [...] 15-29 5 Kidney failure <15 (or dialysis) 15 ADDITIONAL INFORMATION The thyroglobulin antibody testing method is an immunoenzymatic assay manufactured by [employer] and performed on the [employer] DXI 800. Values obtained from different assay methods or kits may be different and cannot be used interchangeably. The results cannot be interpreted as absolute evidence for the presence or absence of malignant disease. Test Performed by: [facility] [address] [place] [id number] 16 Normal Range 180 to 914 Indeterminate Range 145 to 180 Deficient Range <145 17 Desirable: <150 Borderline High: 150-199 High: 200-499 Very High: >500 18 Desirable: <200 Borderline High: 200-239 High: >239 19 Low: <40 Desirable: 40-60 High: >60 20 Desirable: <100 Near Optimal: 100-129 Borderline High: 130-159 High: 160-189 Very High: >189 21 Product Consultant: [id number] Result TnIDx:0.19 Called to [id number] at: 20:23:57 by:[id number] Read back by: NANCY 23 SEE RESULT BELOW Name: FATEMEH LOFTON : [address]: Ochoa Kc MD Acct: [id number] Unit: [id number] AGE: 56 Location: [facility] 445-02 Re03/13/17 Dis: 03/14/17 SEX: F Status: DIS Shakir SPEC: [id number] DENNYS: 03/13/[address]: Jovon Dillon MD REQ: [id number] RECD: 03/13/17 STATUS: HUBERT NIEVES DR: Yue Stock DO _ SOURCE: URINE SPDESC: ORDERED: Urine Culture Procedure Result Reported Site Urine Culture Final 03/15/17- 1113 ML No growth of clinically significant organisms * ML - MAIN LAB (PSC1) . END OF REPORT * ML=Testing performed at Main Lab DEPARTMENT OF PATHOLOGY, [address] [place] [address] Judd Arechiga M.D. Director [facility] # [id number] 24 [facility] Severe Sepsis and Septic Shock Management Bundle Measure requires all lactic acids initially measuring >2.0 mmol/L be repeated. 25 Because ethnic data is not always readily [...] 15-29 5 Kidney failure <15 (or dialysis) 26 Result TnIDx:0.21 Called to [id number] at: 18:39:53 by:[id number] Read back by: [id number] 27 Because ethnic data is not always readily [...] 15-29 5 Kidney failure <15 (or dialysis) 28 Normal Range 180 to 914 Indeterminate Range 145 to 180 Deficient Range <145 29 No informative autoantibodies were detected in the Paraneoplastic Evaluation. However, a negative result does not exclude neurological autoimmunity with or without associated neoplasia. Sensitivity and specificity of antibody testing are enhanced by testing both serum and CSF. 30 ADDITIONAL INFORMATION This test was developed and its performance characteristics determined by [facility] in a manner consistent with CLIA requirements. This test has not been cleared or approved by the U.S. Food and Drug Administration. 31 ADDITIONAL INFORMATION This test was developed and its performance characteristics determined by [facility] in a manner consistent with CLIA requirements. This test has not been cleared or approved by the U.S. Food and Drug Administration. 32 ADDITIONAL INFORMATION This test was developed and its performance characteristics determined by [facility] in a manner consistent with CLIA requirements. This test has not been cleared or approved by the U.S. Food and Drug Administration. 33 ADDITIONAL INFORMATION This test was developed and its performance characteristics determined by [facility] in a manner consistent with CLIA requirements. This test has not been cleared or approved by the U.S. Food and Drug Administration. 34 ADDITIONAL INFORMATION This test was developed and its performance characteristics determined by [facility] in a manner consistent with CLIA requirements. This test has not been cleared or approved by the U.S. Food and Drug Administration. 35 ADDITIONAL INFORMATION This test was developed and its performance characteristics determined by [facility] in a manner consistent with CLIA requirements. This test has not been cleared or approved by the U.S. Food and Drug Administration. 36 ADDITIONAL INFORMATION This test was developed and its performance characteristics determined by [facility] in a manner consistent with CLIA requirements. This test has not been cleared or approved by the U.S. Food and Drug Administration. 37 ADDITIONAL INFORMATION This test was developed and its performance characteristics determined by [facility] in a manner consistent with CLIA requirements. This test has not been cleared or approved by the U.S. Food and Drug Administration. 38 ADDITIONAL INFORMATION This test was developed and its performance characteristics determined by [facility] in a manner consistent with CLIA requirements. This test has not been cleared or approved by the U.S. Food and Drug Administration. 39 ADDITIONAL INFORMATION This test was developed and its performance characteristics determined by [facility] in a manner consistent with CLIA requirements. This test has not been cleared or approved by the U.S. Food and Drug Administration. 40 ADDITIONAL INFORMATION This test was developed and its performance characteristics determined by [facility] in a manner consistent with CLIA requirements. This test has not been cleared or approved by the U.S. Food and Drug Administration. 41 ADDITIONAL INFORMATION This test was developed and its performance characteristics determined by [facility] in a manner consistent with CLIA requirements. This test has not been cleared or approved by the U.S. Food and Drug Administration. 42 ADDITIONAL INFORMATION This test was developed and its performance characteristics determined by [facility] in a manner consistent with CLIA requirements. This test has not been cleared or approved by the U.S. Food and Drug Administration. 43 ADDITIONAL INFORMATION This test was developed and its performance characteristics determined by [facility] in a manner consistent with CLIA requirements. This test has not been cleared or approved by the U.S. Food and Drug Administration. 44 ADDITIONAL INFORMATION This test was developed and its performance characteristics determined by [facility] in a manner consistent with CLIA requirements. This test has not been cleared or approved by the U.S. Food and Drug Administration. Test Performed by: [facility] [address] [address] 45 Because ethnic data is not always readily [...] 15-29 5 Kidney failure <15 (or dialysis) 46 Acute inflammation: >10.00 47 Copy Result to: YUE STOCK ([id number]) 48 Copy Result to: YUE STOCK ([id number]) 49 Copy Result to: YUE STOCK ([id number]) 50 Normal Range 180 to 914 Indeterminate Range 145 to 180 Deficient Range <145 51 Test Performed by: [address] [address] Machine Trimmer: Dung Clements II, M.D., Ph.D. 52 Because ethnic data is not always readily [...] 15-29 5 Kidney failure <15 (or dialysis) 53 RUN DATE: 06/20/14 [facility] LAB LIVE PAGE 1 RUN TIME: [address] [place] [id number] Specimen Inquiry Name: FATEMEH LOFTON : [address]: David Brown MD Acct: [id number] Unit: [id number] AGE: 53 Location: ENDO Re06/19/14 SEX: F Status: REG REF SPEC: [id number] DENNYS: 06/19/14-[address]: David Brown MD REQ: [id number] RECD: 06/19/14-1005 STATUS: HUBERT NIEVES DR: Yue Stock DO _ SOURCE: GAS ANTRUM SPDESC: ORDERED: Clotest Procedure Result Verified Site Clotest Final 06/20/14- 827 ML Clotest Negative END OF REPORT * ML=Testing performed at Main Lab DEPARTMENT OF PATHOLOGY, [employer] [place], [place] [address] Judd Arechiga M.D. Director [facility] # [id number] 54 RUN DATE: 06/23/14 [facility] LAB LIVE PAGE 1 RUN TIME: [address] [employer] [place], [place] [address] Specimen Inquiry Name: FATEMEH LOFTON : [address]: David Brown MD Acct: [id number] Unit: [id number] AGE: 53 Location: ENDO Re06/19/14 SEX: F Status: REG REF SPEC: [id number] DENNYS: 06/19/[address]: David Brown MD REQ: [id number] RECD: 06/19/14 STATUS: ALIS NIEVES DR: Yue [...] performed at Main Lab DEPARTMENT OF PATHOLOGY, [address] [place] [address] Judd Arechiga M.D. Director [facility] # [id number] 55 Results with Index Values of <36.00 are negative. Test Performed by: [place] [address] Machine Trimmer: Dakota Wolf M.D. 56 Results with Index Values of <8.95 are negative. Test Performed by: [place] [address] Machine Trimmer: Dakota Wolf M.D. 57 Results with Index Values of <18.00 are negative. Test Performed by: [place] [address] Machine Trimmer: Dakota Wolf M.D. 58 It is recognized that currently available assays [...] 95% confidence interval of 99.78 to 99.96%. 59 Acute inflammation: >10.00 60 REFERENCE VALUE 25-HYDROXY D TOTAL (D2+D3) Optimum levels in the healthy population are 20-50, patients with bone disease may benefit from higher levels within this range. Test Performed by: [address] [address] Machine Trimmer: Dakota oWlf M.D. 61 Normal Range 180 to 914 Indeterminate Range 145 to 180 Deficient Range <145 62 Desirable <150 Borderline high 150-199 High 200-499 Very High >500 63 Desirable <200 Borderline high 200-239 High >239 64 Low <40 Desirable: 40-60 High: >60 65 Desirable <100 Near Optimal 100-129 Borderline high 130-159 High 160-189 Very High >189 66 Because ethnic data is not always readily [...] 15-29 5 Kidney failure <15 (or dialysis) Procedures Date CPT Code Description Status Comment 12/18/2017 79677 Omt 3 To 4 Body Regions Involved Completed 12/18/2017 56238 SC/Im Injections Completed 10/29/2017 36775 Brief Emotional/Behav Assessment Completed W/ Scoring Doc Per Standard Inst 08/28/2017 87177 Brief Emotional/Behav Assessment Completed W/ Scoring Doc Per Standard Inst 06/28/2017 Mammogram Completed 2018: benign; 03/2015:benign ultrasound; 12/2014:abnormal 06/20/2017 11423 Remove Impact Cerumen Completed Irrigation/Lavage Unilateral 04/18/2017 18816 Brief Emotional/Behav Assessment Completed W/ Scoring Doc Per Standard Inst 04/02/2017 57952 Brief Emotional/Behav Assessment Completed W/ Scoring Doc Per Standard Inst 01/26/2017 66918 Omt 3 To 4 Body Regions Involved Completed 11/03/2016 77040 Omt 3 To 4 Body Regions Involved Completed 09/18/2016 44464 Omt 7-8 Body Regions Completed 07/04/2016 54806 Omt 7-8 Body Regions Completed 04/06/2016 77620 Omt 7-8 Body Regions Completed 04/06/2016 22332 Inject/Drain Joint/Bursa Major Completed 01/24/2016 01665 Omt 7-8 Body Regions Completed 01/24/2016 42918 Electrocardiogram Complete Completed 12/14/2015 28896 Omt 3 To 4 Body Regions Involved Completed 12/14/2015 89324 Inject/Drain Joint/Bursa Small Completed 10/13/2015 46067 Osteopathic Manipulative Completed Treatment 1 Or 2 Body Region 03/15/2015 02120 SC/Im Injections Completed 03/15/2015 73818 Inj Tendon/Ligament/Cyst Completed 02/11/2015 55816 SC/Im Injections Completed 02/11/2015 14819 Inject/Drain Joint/Bursa Small Completed 11/10/2014 49088 X-Ray Foot Three Views Completed 05/27/2014 73990 Spirometry Completed Encounters Type Date Location Provider CPT E/M Dx Office Visit 12/18/2017 4:30p Main Office Yue Stock D.O. 72087 M54.2 H40.9 G43.109 M79.674 M99.01 M99.00 M99.02 M99.08 M99.06 F41.8 Office Visit 10/29/2017 10:45a Main Office Yue Stock D.O. 41629 M79.674 G43.109 I10 G44.201 F41.9 Z91.14 K29.50 G47.33 Z71.89 H40.9 Z13.89 Office Visit 09/28/2017 2:00p Main Office Yue Stock D.O. 96058 G43.109 I10 G44.201 F41.9 R05 T42.4x1D Z91.14 Office Visit 09/17/2017 1:00p Main Office Tracy Hancock P.A. 47454 G43.109 I10 K29.50 Office Visit 08/28/2017 4:00p Main Office Yue Stock D.O. 05114 G44.201 G43.109 I10 K29.50 F41.9 G47.33 Z13.89 Z68.32 Office Visit 08/27/2017 9:40a Main Office Tracy Hancock P.A. 86412 H02.825 I10 K29.50 Z00.01 N60.02 R10.9 G43.C0 Z71.89 Z12.11 Office Visit 06/27/2017 2:45p Main Office Yue Stock D.O. 36947 F41.9 E83.42 I10 G45.9 T50.905A Office Visit 06/20/2017 2:45p Main Office Yue Stock D.O. 30116 Z12.31 H61.22 G43.109 F41.9 G45.9 J44.1 E83.42 Office Visit 04/18/2017 3:30p Main Office Yue Stock D.O. 77021 G43.109 F41.9 G45.9 J44.1 E83.42 I10 Z13.89 Office Visit 04/02/2017 8:30a Main Office Yue Stock D.O. 43313 E04.1 J44.1 G43.109 F41.9 G45.9 E83.42 I10 J02.9 F17.201 I27.20 G31.84 Office Visit 02/22/2017 1:20p Main Office Tracy Hancock P.A. 29120 J44.1 J01.90 Office Visit 01/26/2017 1:15p Main Office Yue Stock D.O. 52366 E55.9 R22.32 G44.201 F41.9 M25.522 M99.00 M99.01 M99.02 M99.08 Z23 Office Visit 11/03/2016 1:15p Main Office Yue Stock D.O. 73637 G44.201 M99.00 M99.08 M99.02 M99.01 Z73.6 F41.9 Office Visit 09/18/2016 1:30p Main Office Yue Stock D.O. 85688 G44.201 M99.03 M99.05 M99.04 M99.01 M99.02 M99.08 M99.00 Office Visit 08/15/2016 4:30p Main Office Yue Stock D.O. 34822 H00.015 G44.201 G43.109 Office Visit 07/04/2016 4:30p Main Office Yue Stock D.O. 08728 H00.015 G44.201 G43.109 J20.9 M99.05 M99.03 M99.04 M99.01 M99.02 M99.08 M99.00 Office Visit 05/22/2016 4:30p Main Office Yue Stock D.O. 16915 G44.201 G47.33 G43.109 E66.01 Z68.36 Z23 Office Visit 04/06/2016 11:30a Main Office Yue Stock D.O. 97060 J20.9 G44.201 M99.05 M99.03 M99.04 M99.01 M99.02 M99.08 M99.00 M25.551 M25.552 Office Visit 01/24/2016 11:30a Main Office Yue Stock D.O. 79075 R03.0 Z68.33 G47.33 G44.201 M99.05 M99.03 M99.04 M99.01 M99.02 M99.08 M99.00 J44.9 Office Visit 12/14/2015 10:00a Main Office Yue Stock D.O. 04593 M79.674 G44.201 M99.00 M99.01 M99.02 M99.08 Office Visit 10/13/2015 9:30a Main Office Yue Stock D.O. 07010 F41.9 G44.201 G43.109 J44.9 M99.00 M99.01 Office Visit 08/13/2015 10:00a Main Office Yue Stock D.O. 74672 F41.9 E83.42 G43.109 R41.3 Office Visit 06/14/2015 11:00a Main Office Yue Stock D.O. 13440 K46.9 E83.42 J44.9 F41.9 G43.109 Office Visit 04/13/2015 9:45a Main Office Yue Stock D.O. 65472 F41.9 E83.42 M79.671 M76.71 G56.02 G43.109 J44.9 K21.9 M54.5 G47.33 E55.9 Office Visit 03/15/2015 9:30a Main Office Yue Stock D.O. 66289 M79.671 M76.71 F41.9 Z23 Z41.8 Office Visit 02/11/2015 8:45a Main Office Yeu Stokc D.O. 23607 F41.9 M72.2 M25.571 G56.02 M18.12 Office Visit 01/11/2015 9:15a Main Office Yue Stock D.O. 46966 M72.2 F41.9 F51.8 G47.33 G43.109 F17.211 J44.9 K21.9 M54.5 Z12.31 Office Visit 12/10/2014 1:30p Main Office Yue Stock D.O. 85632 728.71 719.47 300.00 307.49 327.23 346.00 305.1 496 530.81 724.2 Office Visit 11/10/2014 8:30a Main Office Yue Stock D.O. 71298 719.47 300.00 728.71 719.47 728.71 307.49 327.23 346.00 305.1 496 530.81 724.2 Office Visit 09/07/2014 9:45a Main Office Yue Stock D.O. 17527 300.00 728.71 307.49 327.23 346.00 305.1 496 530.81 724.2 794.19 Office Visit 08/07/2014 8:55a Main Office Yue Stock D.O. 37882 307.81 307.49 356.8 300.00 496 305.1 268.9 346.00 530.81 724.2 Office Visit 07/07/2014 8:30a Main Office Yue Stock D.O. 31739 307.49 356.8 300.00 496 305.1 268.9 346.00 530.81 724.2 Office Visit 06/29/2014 4:30p Main Office Yue Stock D.O. 58449 527.5 784.2 Office Visit 06/09/2014 11:00a Main Office Yue Stock D.O. 44700 496 305.1 307.49 356.8 Office Visit 05/27/2014 2:30p Main Office Yue Stock D.O. 52997 496 305.1 729.1 346.00 268.9 Office Visit 05/20/2014 2:00p Main Office Yue Stock D.O. 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
[2018-01-26] MEDS ORDERED: NS 0.9% 1000 ML* 1,000 ML IV ONE (12:41)
[2018-01-26 13:04] LABS: ABS Basophils 0.1 10^3/ul (0-0.2); ABS Eosinophils 0.3 10^3/ul (0-0.6); ABS Lymphocytes 1.8 10^3/ul (1.0-4.8); ABS Monocytes 0.4 10^3/ul (0-0.8); ABS Neutrophils 3.6 10^3/ul (1.5-7.7); ABS Nucleated RBC 0 10^3/ul; Eosinophil % 4.5 % (0-6); Hematocrit 41 % (35-47); Hemoglobin 13.8 g/dl (12.0-16.0); Mean Corpuscular HGB Conc 33 g/dl (31-36); Mean Corpuscular Hemoglobin 33 pg (27-31); Mean Corpuscular Volume 97 fL (80-97); Nucleated Red Blood Cells % 0.1; Platelet Count 215 10^3/ul (150-450); Red Blood Count 4.24 10^6/ul (4.00-5.40); Red Cell Distribution Width 14 % (10.5-15); White Blood Count 6.1 10^3/ul (3.5-10.8)
[2018-01-26] MEDS ORDERED: Morphine INJ** 4 MG/ML 1 ML CARPUJECT IV ONE (13:10)
[2018-01-26] MEDS ORDERED: Ondansetron INJ* 2 MG/ML VIAL IV ONE (13:10)
[2018-01-26] MEDS ORDERED: Morphine INJ* 4 MG/ML 1 ML SYRINGE (NEW SYRINGE VERSION) ONE (13:16)
[2018-01-26 13:19] LABS: EGFR Non-African American 69.4 (>60)
--- NOTE | 2018-01-26 13:20 | ED ---
Abdominal Pain/Female - HPI Summary HPI Summary: Patient is an otherwise healthy 57-year-old female presenting to the ED with right lower quadrant tenderness 1 week. She states the symptoms have been worsening. She describes the symptoms as an ache and constant, not worse or better with positioning or worse or better after eating or drinking. She endorses radiation of pain to the groin and upper right leg region. Denies any nausea, vomiting, diarrhea, constipation. Denies any headache, fevers or sweats , however has been endorsing some chills over the past week. She was seen by her PCP this morning his sent her to the ED for further evaluation of a possible appendicitis versus other etiology. She is endorsing some burning with urination, however denies any urinary obstructive symptoms. She has never had this type of pain in the past. Endorses history of ovarian cysts bilaterally, but states this felt different than her previous ovarian cysts. She has not been taking any medication for relief. She is requesting pain medication on arrival. Vital signs are stable. - History of Current Complaint Chief Complaint: EDAbdPain Stated Complaint: PAIN IN LOWER RT ABD Time Seen by Provider: 01/26/18 12:35 Hx Obtained From: Patient Hx Last Menstrual Period: 2007 Patient had a water basting procedure ?: No Onset/Duration: Sudden Onset Timing: Weeks - constant x 1 week Severity Initially: Moderate Severity Currently: Moderate Pain Intensity: 5 Pain Scale Used: 0-10 Numeric Location: Discrete At: RLQ Radiates: Yes Character: Cramping Aggravating Factor(s): Nothing Alleviating Factor(s): Nothing Associated Signs and Symptoms: Negative: Fever, Cough, Chest Pain, Constipation , Blood in Stool, Urinary Symptoms, Decreased Appetite, Nausea, Vomiting, Diarrhea - Risk Factors Ectopic Risk Factor: Negative Ovarian Torsion Risk Factor: Negative Allergies/Adverse Reactions: Allergies Allergy/AdvReac Type Severity Reaction Status Date / Time bee venom protein (honey bee) Allergy Anaphylatic Verified 01/26/18 11:55 Shock Home Medications: Home Medications Advair HFA 115/21 (NF) 1 - 2 puff PO BID 01/26/18 [History Confirmed 01/26/18] Albuterol HFA INHALER* [Ventolin HFA Inhaler*] 2 puff INH Q4H PRN 01/26/18 [ History Confirmed 01/26/18] Albuterol Sulfate 1 vial INH Q6H PRN 01/26/18 [History Confirmed 01/26/18] Cholecalciferol (Vitamin D3) [Vitamin D3] 1 cap PO DAILY 01/26/18 [History Confirmed 01/26/18] Fluticasone NASAL SPRAY 50MCG* 2 spray BOTH NARES BID 01/26/18 [History Confirmed 01/26/18] MagOx 400 TAB* 3 tab PO BEDTIME 01/26/18 [History Confirmed 01/26/18] Sertraline HCl [Zoloft] 50 mg PO DAILY 01/26/18 [History Confirmed 01/26/18] Ubidecarenone [Co Q-10] 100 mg PO DAILY 01/26/18 [History Confirmed 01/26/18] Umeclidin 62.5 MDI(NF) [Incruse ELLIPTA MDI (NF)] 1 puff INH DAILY 01/26/18 [ History Confirmed 01/26/18] Vitamin B Complex Vit C No.3 [B Complex with Vitamin C] 1 cap PO DAILY 01/26/18 [History Confirmed 01/26/18] PMH/Surg Hx/FS Hx/Imm Hx Previously Healthy: Yes Endocrine/Hematology History: Denies: Hx Diabetes, Hx Thyroid Disease Cardiovascular History: Reports: Hx Hypertension Denies: Hx Pacemaker/ICD Respiratory History: Reports: Hx Chronic Obstructive Pulmonary Disease (COPD), Hx Sleep Apnea, Other Respiratory Problems/Disorders - COPD Denies: Hx Asthma GI History: Reports: Hx Gastroesophageal Reflux Disease, Other GI Disorders - umbicial herrnia Denies: Hx Ulcer History: Denies: Hx Renal Disease Sensory History: Reports: Hx Contacts or Glasses - GLASSES Denies: Hx Hearing Aid Opthamlomology History: Reports: Hx Contacts or Glasses - GLASSES Neurological History: Reports: Hx Migraine - ON MEDS FOR, Other Neuro Impairments/Disorders - periphial neuropathy Psychiatric History: Reports: Hx Anxiety, Hx Depression Denies: Hx Panic Disorder - Surgical History Surgery Procedure, Year, and Place: - 1981 AND 1983- [facility]. hernia repair 2014 Hx Anesthesia Reactions: No - Immunization History Date of Influenza Vaccine: 01/2017 Hx Pertussis Vaccination: No Immunizations Up to Date: Yes Infectious Disease History: No Infectious Disease History: Denies: Hx Clostridium Difficile, Hx Hepatitis, Hx Human Immunodeficiency Virus (HIV), Hx of Known/Suspected MRSA, Hx Shingles, Hx Tuberculosis, Hx Known/ Suspected VRE, Hx Known/Suspected VRSA, History Other Infectious Disease, Traveled Outside the [place] in Last 30 Days - Family History Known Family History: Positive: Unknown - due to level 5 caveat - pt is combative and uncooperative - Social History Occupation: Employed Full-time Lives: With Family Alcohol Use: None Hx Substance Use: No Substance Use Type: Reports: None Substance Use Comment - Amount & Last Used: see tox screen Hx Tobacco Use: Yes Smoking Status (MU): Heavy Every Day Tobacco Smoker Type: Cigarettes Amount Used/How Often: 1 PACK A DAY Length of Time of Smoking/Using Tobacco: 30YEARS Review of Systems Positive: Chills. Negative: Fever, Fatigue, Skin Diaphoresis Negative: Epistaxis, Dental Pain, Sore Throat Negative: Palpitations, Chest Pain Negative: Shortness Of Breath, Cough Positive: Abdominal Pain. Negative: Vomiting, Diarrhea, Nausea Positive: see HPI, burning Negative: Arthralgia, Myalgia Skin: Negative Neurological: Negative All Other Systems Reviewed And Are Negative: Yes Physical Exam Triage Information Reviewed: Yes Vital Signs On Initial Exam: Initial Vitals Temp Pulse Resp BP Pulse Ox 98.0 F 59 16 157/79 97 01/26/18 11:47 01/26/18 11:47 01/26/18 11:47 01/26/18 11:47 01/26/18 11:47 Vital Signs Reviewed: Yes Appearance: Positive: Well-Appearing, Well-Nourished Skin: Positive: Warm, Skin Color Reflects Adequate Perfusion Head/Face: Positive: Normal Head/Face Inspection Eyes: Positive: EOMI, ASHLEY, Conjunctiva Clear Neck: Positive: Supple, No Lymphadenopathy Respiratory/Lung Sounds: Positive: Clear to Auscultation, Breath Sounds Present Cardiovascular: Positive: Pulses are Symmetrical in both Upper and Lower Extremities Abdomen Description: Positive: Soft, McBurney's Point Tenderness, Other: - RLQ tenderness' +psoas; +obturator. Negative: CVA Tenderness (R), CVA Tenderness (L ), Hernia @, Peritoneal Signs, Pulsatile Mass, Splenomegaly Bowel Sounds: Positive: Present Musculoskeletal: Positive: Strength/ROM Intact Neurological: Positive: Sensory/Motor Intact, Alert, Oriented to Person Place, Time Psychiatric: Positive: Normal, Affect/Mood Appropriate AVPU Assessment: Alert Diagnostics - Vital Signs Vital Signs Temp Pulse Resp BP Pulse Ox 01/26/18 11:47 98.0 F 59 16 157/79 97 - Laboratory Lab Results: Lab Results 01/26/18 Range/Units 12:51 WBC 6.1 (3.5-10.8) 10^3/ul RBC 4.24 (4.00-5.40) 10^6/ul Hgb 13.8 (12.0-16.0) g/dl Hct 41 (35-47) % MCV 97 (80-97) fL MCH 33 H (27-31) pg MCHC 33 (31-36) g/dl RDW 14 (10.5-15) % Plt Count 215 (150-450) 10^3/ul MPV 10.0 (7.4-10.4) um3 Neut % (Auto) 58.1 (38-83) % Lymph % (Auto) 30.0 (25-47) % [place] % (Auto) 6.4 (0-7) % Eos % (Auto) 4.5 (0-6) % Baso % (Auto) 1.0 (0-2) % Absolute Neuts (auto) 3.6 (1.5-7.7) 10^3/ul Absolute Lymphs (auto) 1.8 (1.0-4.8) 10^3/ul Absolute Monos (auto) 0.4 (0-0.8) 10^3/ul Absolute Eos (auto) 0.3 (0-0.6) 10^3/ul Absolute Basos (auto) 0.1 (0-0.2) 10^3/ul Absolute Nucleated RBC 0 10^3/ul Nucleated RBC % 0.1 ESR Pending Result Diagrams: 01/26/18 12:51 01/26/18 12:51 Lab Statement: Any lab studies that have been ordered have been reviewed, and results considered in the medical decision making process. Abdominal Pain Fem Course/Dx - Course Course Of Treatment: During the course of treatment, the patient is evaluated for a possible appendicitis. Labs are obtained which show a normal white count. On physical examination, there is positive Rovsing sign and tenderness over McBurney's point. Psoas and obturator both positive. However on direct palpation, she endorses only mild discomfort. No CVA tenderness bilaterally. Lungs CTA. RRR. No discomfort throughout all of the quadrants on light or deep palpation. Denies any pain over the suprapubic region. CT abdomen and pelvis without oral contrast obtained which shows: IMPRESSION: 1. EXTENSIVE DIVERTICULOSIS OF THE COLON, INCLUDING OF THE ASCENDING COLON, WITHOUT. PERICOLONIC INFLAMMATORY CHANGE. 2. NORMAL APPENDIX. 3. PROMINENCE OF THE PELVIC VASCULATURE WHICH IS NONSPECIFIC BUT CAN BE ASSOCIATED WITH. PELVIC CONGESTION SYNDROME IN THE CORRECT CLINICAL SETTING. 4. ATHEROSCLEROSIS. 5. INCIDENTALLY NOTED IS A HYPERVASCULAR LESION OF THE SPLEEN. THE ABSENCE OF A HISTORY. OF MALIGNANCY, THIS LIKELY REPRESENTS A HEMANGIOMA. 4 mg morphine and 4 mg Zofran given in the ED with good relief. Again on reexamination, she continues to have tenderness to the RLQ, but only with deep palpation. As emergent complications and diagnoses are nearly ruled out, I discussed with the patient following up with gynecology as well as Dr. Morel to further evaluate these symptoms as a possible pelvic congestion syndrome. I have given pain control and she will also follow up with her PCP. She voices no concerns at this time, vital signs are stable, all labs obtained on this visit are WNL. She is noted to be hypertensive upon discharge and is given metoprolol 50 mg. She states she does not take hypertension medications regularly and will follow- up with her PCP regarding her high blood pressure. - Diagnoses Differential Diagnosis: Positive: Other - Pelvic congestion syndrome, appendicitis, ovarian pathology, diverticulosis, muscular strain Provider Diagnoses: RLQ abdominal pain Discharge - Sign-Out/Discharge Documenting (check all that apply): Patient Departure - Discharge Plan Condition: Stable Disposition: HOME Prescriptions: HYDROcodone/ACETAMIN 5-325 MG* [[place] 5-325 TAB*] 1 tab PO Q4H PRN #24 tab MDD 16 PRN Reason: Pain Referrals: Jhony Ortega MD [Medical Doctor] - Mickey George DO [Primary Care Provider] - Keaton Morel MD [Medical Doctor] - Additional Instructions: Please call Dr. Ortega (RECREATION MANAGER specialist) Please call Dr. Morel Also, follow up with your PCP as well Pain control as needed until follow up - Start with tylenol - if not well controlled - may use the hydrocodone If symptoms worsen - return to the ED immediately - Billing Disposition and Condition Condition: STABLE Disposition: Home
[2018-01-26] MEDS ORDERED: Iohexol 300* (CONTRAST) 10 ML SDV IV ONE (13:30)
--- NOTE | 2018-01-26 13:57 | RAD ---
CLINICAL HISTORY: RLQ COMPARISON: February 05, 2006 TECHNIQUE: Multiple contiguous axial CT scans were obtained of the abdomen and pelvis after the administration of intravenous contrast. Coronal and sagittal multiplanar reformations are submitted for review. Oral contrast was not administered. Delayed images were obtained through the abdomen. FINDINGS: LUNG BASES: The lung bases are clear. LIVER: The liver is normal in shape, size, contour, and attenuation. BILE DUCTS: There is no intrahepatic or extrahepatic biliary dilatation. GALLBLADDER: The gallbladder is normal, without pericholecystic inflammatory change. PANCREAS: There is mild prominence of the pancreatic duct without a cough. SPLEEN: There is a hypervascular lesion of the spleen measuring 2 cm in size and axial image 14. This is not clearly seen on the previous examination, though this may be an artifact of the phase of contrast enhancement. This is not seen on the delayed images. UPPER GI TRACT: Evaluation of the gastrointestinal tract is limited by incomplete gastric distention. The upper GI tract is unremarkable. SMALL BOWEL AND MESENTERY: The small bowel is normal in contour, course, and caliber. There is no obstruction or dilatation. COLON: There is extensive diverticulosis throughout the colon including the cecum. There is a tubular, vermiform, hollow viscus that is blind ending, and originates from the cecum, consistent with a normal appendix. There is no periappendiceal inflammatory change. This is best seen on coronal images 32 through 49. ADRENALS: Normal bilaterally. KIDNEYS: The kidneys are normal in shape, size, contour, and axis. There is no hydronephrosis or nephrolithiasis. BLADDER: The bladder is smooth in contour. PELVIC ORGANS: The uterus and adnexa are grossly normal for technique. There is prominence of the vasculature along the broad ligaments bilaterally with enlargement of the left compatible vein. AORTA: There is calcific atherosclerotic disease of the abdominal aorta and its branches, without aneurysmal dilatation IVC: Unremarkable LYMPH NODES: There is no lymphadenopathy by size criteria. ABDOMINAL WALL: There is no evidence for abdominal wall hernia. BONES AND SOFT TISSUES: There are mild diffuse degenerative changes. OTHER: None IMPRESSION: 1. EXTENSIVE DIVERTICULOSIS OF THE COLON, INCLUDING OF THE ASCENDING COLON, WITHOUT PERICOLONIC INFLAMMATORY CHANGE. 2. NORMAL APPENDIX. 3. 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 4. ATHEROSCLEROSIS. 5. INCIDENTALLY NOTED IS A HYPERVASCULAR LESION OF THE SPLEEN. THE ABSENCE OF A HISTORY OF MALIGNANCY, THIS LIKELY REPRESENTS A HEMANGIOMA.
[2018-01-26] MEDS ORDERED: Metoprolol Succinate XL TAB* 50 MG PO ONE (15:17)
[2018-01-26 16:03] VITALS: BP 180/92
== END 2018-01-26 16:02 | disposition home or self-care (01) ==
LOC: ED 11:43
DX: R10.31 Right lower quadrant pain (principal); K57.30 Diverticulosis of large intestine without perforation or abscess without bleeding; D73.89 Other diseases of spleen; J44.9 Chronic obstructive pulmonary disease, unspecified; F17.210 Nicotine dependence, cigarettes, uncomplicated; Z79.899 Other long term (current) drug therapy; Z87.42 Personal history of other diseases of the female genital tract
CPT/HCPCS: 36415; 74177; 80053; 83605; 85025; 85652; 86140; 96361; 96374; 96375; 99283; A9270-GY; J2270; J2405; Q9967

== ENCOUNTER 2018-06-27 11:26 | Emergency (ER) | payer OTHER ==
[2018-06-27 12:30] VITALS: BP 214/95
== END 2018-06-27 12:56 | disposition left against medical advice (07) ==
LOC: UCCORT 11:26
DX: Z53.21 Procedure and treatment not carried out due to patient leaving prior to being seen by health care provider (principal)

== ENCOUNTER 2019-01-11 15:06 | Emergency (ER) | payer OTHER ==
[2019-01-11 16:10] VITALS: BP 125/67
--- NOTE | 2019-01-11 16:38 | UC ---
Respiratory Complaint HPI - HPI Summary HPI Summary: cough headaches and stuffy nose for a few days---feels like she is up all night coughing--granddaughter with similar sx--patient has copd and has been using inhalers - History of Current Complaint Chief Complaint: UCGeneralIllness Stated Complaint: COUGH,CONGESTION Time Seen by Provider: 01/11/19 16:25 Hx Obtained From: Patient Hx Last Menstrual Period: 2007 Patient had a water basting procedure ?: No Onset/Duration: Sudden Onset, Lasting Days, Still Present Timing: Constant Pain Intensity: 5 Pain Scale Used: 0-10 Numeric Character: Cough: Nonproductive Aggravating Factors: Recumbent Position Alleviating Factors: Bronchodilator Associated Signs And Symptoms: Positive: URI, Nasal Congestion - Allergies/Home Medications Allergies/Adverse Reactions: Allergies Allergy/AdvReac Type Severity Reaction Status Date / Time bee venom protein (honey bee) Allergy Anaphylatic Verified 01/11/19 16:11 Shock PMH/Surg Hx/FS Hx/Imm Hx Previously Healthy: No Respiratory History: COPD GI/ History: Gastroesophageal Reflux Psychological History: Anxiety, Depression - Surgical History Surgical History: Yes Surgery Procedure, Year, and Place: - 1981 AND 1983- [facility]. hernia repair 2014 - Family History Known Family History: Positive: Unknown - due to level 5 caveat - pt is combative and uncooperative - Social History Occupation: Employed Full-time Lives: With Family Alcohol Use: None Substance Use Type: None Substance Use Comment - Amount & Last Used: see tox screen Smoking Status (MU): Former Smoker Type: Cigarettes Amount Used/How Often: 1 PACK A DAY Length of Time of Smoking/Using Tobacco: 30YEARS When Did the Patient Quit Smoking/Using Tobacco: 2014 - Immunization History Most Recent Tetanus Shot: unknown Review of Systems All Other Systems Reviewed And Are Negative: Yes Constitutional: Positive: Negative Skin: Positive: Negative Eyes: Positive: Negative ENT: Positive: Nasal Discharge, Sinus Congestion Respiratory: Positive: Cough Cardiovascular: Positive: Negative Gastrointestinal: Positive: Negative Genitourinary: Positive: Negative Motor: Positive: Negative Neurovascular: Positive: Negative Musculoskeletal: Positive: Negative Neurological: Positive: Negative Psychological: Positive: Negative Is Patient Immunocompromised?: No Physical Exam Triage Information Reviewed: Yes Appearance: No Pain Distress, Well-Nourished, Ill-Appearing Vital Signs: Initial Vital Signs Temp 97.3 F 09/14/19 16:06 Pulse 77 01/11/19 16:06 Resp 20 01/11/19 16:06 BP 125/67 01/11/19 16:06 Pulse Ox 99 01/11/19 16:06 Vital Signs Reviewed: Yes Eye Exam: Normal Eyes: Positive: Conjunctiva Clear ENT Exam: Normal ENT: Positive: Normal ENT inspection, Hearing grossly normal, Pharynx normal, Nasal congestion, TMs normal, Uvula midline. Negative: Tonsillar swelling, Trismus, Muffled voice, Hoarse voice, Dental tenderness, Sinus tenderness Neck exam: Normal Neck: Positive: Supple, Nontender, No Lymphadenopathy Respiratory Exam: Normal Respiratory: Positive: Chest non-tender, Lungs clear, Normal breath sounds, No respiratory distress, No accessory muscle use Cardiovascular Exam: Normal Cardiovascular: Positive: RRR, No Murmur, Pulses Normal, Brisk Capillary Refill Musculoskeletal Exam: Normal Musculoskeletal: Positive: Strength Intact, ROM Intact, No Edema Neurological Exam: Normal Neurological: Positive: Alert, Muscle Tone Normal Psychological Exam: Normal Skin Exam: Normal Respiratory Course/Dx - Course Course Of Treatment: increase fluids continue inhalers, may use robitussin as a mucolytic---short course of prednisone to treat exacerbation of bronchospasm - Differential Dx/Diagnosis Provider Diagnosis: COPD exacerbation, Viral illness Discharge ED - Sign-Out/Discharge Documenting (check all that apply): Patient Departure All imaging exams completed and their final reports reviewed: No Studies - Discharge Plan Condition: Stable Disposition: HOME Prescriptions: predniSONE [Prednisone 20 MG TAB] 20 mg PO DAILY #12 tablet Patient Education Materials: Upper Respiratory Infection (ED), COPD (Chronic Obstructive Pulmonary Disease) (ED), Viral Syndrome (ED) Referrals: Mickey Geogre DO [Primary Care Provider] - 2 Weeks - Billing Disposition and Condition Condition: STABLE Disposition: Home - Attestation Statements Provider Attestation: Per institutional requirements, I have reviewed the chart, however, I was not consulted specifically or made aware of this patient by the midlevel provider. I did not personally evaluate, interact with , or disposition this patient.
== END 2019-01-11 16:49 | disposition home or self-care (01) ==
LOC: UCCORT 15:06
DX: J44.1 Chronic obstructive pulmonary disease with (acute) exacerbation (principal); B34.9 Viral infection, unspecified; Z91.030 Bee allergy status; Z87.891 Personal history of nicotine dependence
CPT/HCPCS: 99212; G0463